=== PATIENT | male | born 1935 | race Caucasian/White ===

== ENCOUNTER → 2016-11-19 | Outpatient (REF) | payer MEDICARE ==
[~2016-11-19] MED LIST: ASPI1TAB PO; BISO10TA PO; BREO1INH IN; CHLO25TA PO; FINA5TAB2 PO; FLUO20CA9 PO; FURO1TAB15 PO; HUMA75VL SC; LISI10TA4 PO; OMEP20CA3 PO; SIMV80TA PO; SPIR25TA2 PO; TAMS0.4C2 PO; VICT18IN SC; ZYLO300T4 PO
[2016-11-19 11:54] LABS: MEAN CORPUSCULAR HEMOGLOBIN 29.8 pg (27.0-33.0); MEAN CORPUSCULAR HGB CONC 32.4 g/dl (32.0-36.5); MEAN CORPUSCULAR VOLUME 91.9 fl (80.0-96.0); RED CELL DISTRIBUTION WIDTH 14.3 % (11.5-14.5); WHITE BLOOD COUNT 7.4 K/mm3 (4.0-10.0)
[2016-11-19 12:22] LABS: ALBUMIN 3.7 GM/DL (3.2-5.2); ALBUMIN/GLOBULIN RATIO 1.28 (1.00-1.93); ALKALINE PHOSPHATASE 60 U/L (45-117); ALT/SGPT 18 U/L (12-78); ANION GAP 8 MEQ/L (8-16); AST/SGOT 11 U/L (15-37); BILIRUBIN,TOTAL 0.4 MG/DL (0.2-1.0); BLOOD UREA NITROGEN 19 MG/DL (7-18); CARBON DIOXIDE LEVEL 29 MEQ/L (21-32); CHLORIDE LEVEL 111 MEQ/L (98-107); CHOLESTEROL LEVEL 119 MG/DL (<200); CREATININE FOR GFR 1.09 MG/DL (0.70-1.30); GLOMERULAR FILTRATION RATE > 60.0 (>42); GLUCOSE, FASTING 61 MG/DL (83-110); POTASSIUM SERUM 3.9 MEQ/L (3.5-5.1); SODIUM LEVEL 148 MEQ/L (136-145); TOTAL PROTEIN 6.6 GM/DL (6.4-8.2); TRIGLYCERIDES LEVEL 78 MG/DL (<150)
== END ==
LOC: M SFHCPLAZ 07:44
PROVIDERS: ATTEND Internal Medicine
DX: G47.30 Sleep apnea, unspecified (principal); E11.9 Type 2 diabetes mellitus without complications; E78.00 Pure hypercholesterolemia, unspecified

== ENCOUNTER 2017-04-07 21:51 | Inpatient (IN) | payer MEDICARE ==
[~2017-04-07] VITALS: Ht 172.7 cm; Wt 110.8 kg
[2017-04-07] MEDS ORDERED: TORS10TA3 PO (22:20)
[2017-04-07] MEDS ORDERED: ACETAMINOPHEN 325 MG TAB PO ONE (23:15)
[2017-04-07] MEDS ORDERED: NS 1,000 ML IV SCH (23:29)
[2017-04-07 23:47] LABS: MEAN CORPUSCULAR HGB CONC 32.5 g/dl (32.0-36.5); MEAN CORPUSCULAR VOLUME 92.5 fl (80.0-96.0); PLATELET COUNT, AUTOMATED 132 k/mm3 (150-450); RED CELL DISTRIBUTION WIDTH 15.3 % (11.5-14.5); WHITE BLOOD COUNT 13.1 K/mm3 (4.0-10.0)
[2017-04-07] MEDS: IPRATROPIUM 0.5MG/ALBUTEROL 2.5MG INH SOL UD 3ML (DUONEB)(J7620) NEB PRN (23:47)
[2017-04-07 23:52] LABS: CALCIUM LEVEL 8.6 MG/DL (8.8-10.2); CREATININE FOR GFR 1.27 MG/DL (0.70-1.30); GLOMERULAR FILTRATION RATE 58.2 (>42)
[2017-04-08] LABS: ALBUMIN 3.7 GM/DL (3.2-5.2); ALBUMIN/GLOBULIN RATIO 1.28 (1.00-1.93); BILIRUBIN,DIRECT 0.2 MG/DL (0.0-0.2); BILIRUBIN,TOTAL 0.6 MG/DL (0.2-1.0); TOTAL PROTEIN 6.6 GM/DL (6.4-8.2)
[2017-04-08] MEDS: IPRATROPIUM 0.5MG/ALBUTEROL 2.5MG INH SOL UD 3ML (DUONEB)(J7620) NEB PRN (00:07)
[2017-04-08] MEDS ORDERED: cefTRIAXone SOD 2 GM in D5W MINI-BAG PLUS 50 ML IV ONE (00:15)
[2017-04-08] MEDS ORDERED: AZITHROMYCIN INJ 500 MG, VIAL MATE ADAPTER 1 EACH in D5W 250 ML IV ONE (00:15)
[2017-04-08] MEDS ORDERED: guaiFENesin ER 600 MG TAB PO ONE (00:17)
[2017-04-08 00:42] LABS: BANDS 2 % (< 11)
--- NOTE | 2017-04-08 00:47 | REP ---
Clinical: Dyspnea and cough. Technique: PA and lateral. Comparison: 06/24/2010. Findings: Bibasilar infiltrates (right greater than left) and suspected small pleural effusions suggest multifocal pneumonia. Mediastinum and cardiac silhouette stable. Evidence for prior sternotomy and CABG noted. No pneumothorax. Skeletal structures intact. Impression: Bibasilar infiltrates (right greater than left) and suspected layering effusions most suggestive of acute multifocal pneumonia / atelectasis. Signed by Shay Campa MD 04/08/2017 12:38 A
[2017-04-08] MEDS ORDERED: LISI-542 PO (01:15)
[2017-04-08] MEDS ORDERED: FLOM5CAP PO (01:15)
[2017-04-08] MEDS ORDERED: ASPI32ECTA PO (01:15)
[2017-04-08] MEDS ORDERED: GENTGEL OU (01:15)
[2017-04-08] MEDS ORDERED: FLUT1SPR2 (01:15)
[2017-04-08] MEDS ORDERED: ACETAMINOPHEN 325 MG TAB PO ONE (02:15)
[2017-04-08 02:30] VITALS: BP 109/57
[2017-04-08] MEDS: SIMVASTATIN 40 MG TAB PO SCH ×2 (03:50→19:55)
[2017-04-08] MEDS: ASPIRIN ENTERIC 325 MG TAB PO SCH ×2 (03:50→19:55)
[2017-04-08 06:00] VITALS: BP 135/67
--- NOTE | 2017-04-08 06:10 | HPEPDOC ---
General Date of Admission Apr 08, 2017 at 01:44 Primary Care Physician: Dennis Ramirez Attending Physician: MELISSA TIJERINA MD Chief Complaint The patient is a 81-year-old male admitted with a reason for visit of Pneumonia. Source: Patient Exam Limitations: No limitations Timing/Duration: Day(s) Severity: Moderate Associated Symptoms: Cough, Fever, Chills, Malaise History of Present Illness 81-year-old male, history of CAD status post CABG, diabetes mellitus, hypertensive, presented with shortness of breath, fever and cough for the past few days. He denies any recent travel or sick contact. He denies any leg edema, diarrhea or constipation. Home Medications Scheduled Allopurinol (Zyloprim) 300 Mg Tab, 300 MG PO DAILY, (Reported) Aspirin (Aspirin EC) 325 Mg Tabec, 325 MG PO QHS, (Reported) Bisoprolol Fumarate (Zebeta) 10 Mg Tab, 10 MG PO DAILY, (Reported) Fluticasone Propionate (Fluticasone Propionate 0.05%) 120 [place]/16 Gm Naspr, 2 SPRAY NA DAILY, (Reported) PER NOSTRIL Insulin Lispro Protamine/Lispr (Humalog Mix 75/25 (75-25) 100 Unit/ml) 1 Units/ 0.01 Ml Susp, 1 UNITS SC AC, (Reported) PATIENT STATES TAKES 70 UNITS BEFORE BREAKFAST, 30 UNITS BEFORE LUNCH AND 70 UNITS BEFORE DINNER DEPENDING ON GLUCOSE LEVEL Lisinopril (Lisinopril) 5 Mg Tab, 5 MG PO QHS, (Reported) Omeprazole (Omeprazole) 20 Mg Cap, 20 MG PO DAILY, (Reported) Simvastatin - High Dose (Simvastatin) 80 Mg Tab, 80 MG PO QHS, (Reported) Spironolactone (Spironolactone) 25 Mg Tab, 25 MG PO DAILY, (Reported) Tamsulosin Hydrochloride (Flomax) 0.4 Mg Cap, 0.8 MG PO DAILY, (Reported) Torsemide (Torsemide) 10 Mg Tab, 10 MG PO DAILY, (Reported) Scheduled PRN (Genteal 0.25-0.3 %) 1 Gel Gel, 1 GEL OU BID PRN for DRY EYES, (Reported) Allergies Coded Allergies: TAPE (Verified Allergy, Unknown, PLASTIC TAPE, 07/29/05) Past Medical History Medical History CAD status post CABG, hypertension, diabetes mellitus Surgical History Borderline replacement, CABG Family History Significant Family History: No pertinent family hx Social History * Smoker: Denies Alcohol: Denies Recent Travel/Sick Contacts: Denies: Recent travel, Recent sick contacts Psychosocial History: No pertinent psych hx Review of Symptoms Constitutional: Reports: Chills, Fever, Malaise, Denies: Night Sweats Eyes: Denies: Pain, Vision change ENT: Denies: Head Aches, Ear Pain, Dysphagia Skin: Denies: Rash, Lesions, Breakdown Pulmonary: Reports: Dyspnea, Cough Cardiovascular: Denies: Chest Pain, Palpitations, Orthopnea, Paroxysmal Noc. Dyspnea, Lt Headedness Gastrointestinal: Denies: Nausea, Vomiting, Abdominal Pain, Diarrhea Genitourinary: Denies: Dysuria, Frequency, Incontinence, Retention Hematologic: Denies: Bruising, Bleeding Excessively Musculoskeletal: Denies: Neck Pain, Back Pain, Joint Pain, Muscle Pain, Spasms Neurological: Denies: Weakness, Numbness, Change in speech, Confusion Psych: Reports: Mood Normal, Denies: Depression, Memory Issues Physical Examination General Exam: Positive: Alert, No Acute Distress Eye Exam: Positive: PERRLA, Conjunctiva & lids normal, EOMI, Negative: Sclera icteric ENT Exam: Positive: Atraumatic, Mucous membr. moist/pink, Pharynx Normal Neck Exam: Positive: Supple, Negative: JVD, thyromegaly Chest Exam: Positive: Rhonchi, Diminished Heart Exam: Positive: Rate Normal, Regular Rhythm, Normal S1, Normal S2, Negative: Murmurs, Rubs Telemetry: Positive: No significant arrhythmia Abdomen Exam: Positive: Normal bowel sounds, Soft, Negative: Tenderness, Hepatospenomegaly Extremity Exam: Positive: Normal pulses, Negative: Clubbing, Cyanosis, Edema Skin Exam: Positive: Nl turgor and temperature, Negative: Breakdown, Lesion Neuro Exam: Positive: Normal Gait, Normal Speech, Cranial Nerves 3-12 NL, Reflexes 2+ Psych Exam: Positive: Mental status NL, Mood NL, Oriented x 3 Vital Signs Vital Signs Date Time Temp Pulse Resp B/P (MAP) Pulse Ox O2 Delivery O2 Flow Rate FiO2 04/08/17 03:09 Nasal Cannula 4.0 04/08/17 02:30 99.7 81 14 109/57 (74) 94 Laboratory Data Labs 24H Laboratory Tests 2 04/07/17 22:04: Neutrophils 90H, Band Neutrophils 2, Lymphocytes (Manual) 6L, Monocytes (Manual ) 2, Platelet Estimate NORMAL, Red Blood Cell Morphology NORMAL, Anion Gap 4L, Glomerular Filtration Rate 58.2, Lactic Acid Level 1.3, Blood Urea Nitrogen 20H , Creatinine 1.27, Sodium Level 140, Potassium Level 4.0, Chloride Level 107, Carbon Dioxide Level 29, Calcium Level 8.6L, Total Creatine Kinase 251, Aspartate Amino Transf (AST/SGOT) 15, Alanine Aminotransferase (ALT/SGPT) 22, Alkaline Phosphatase 53, Total Bilirubin 0.6, Direct Bilirubin 0.2, Creatine Kinase MB 3.8H, Creatine Kinase MB Relative Index 1.51, Troponin I 0.32H, C- Reactive Protein, Quantitative 1.26H, B-Type Natriuretic Peptide 136H, Total Protein 6.6, Albumin 3.7, Albumin/Globulin Ratio 1.28, Thyroid Stimulating Hormone (TSH) 1.140 04/08/17 03:47: CBC/BMP Laboratory Tests 04/07/17 22:04 Red Blood Count 4.76, Mean Corpuscular Volume 92.5, Mean Corpuscular Hemoglobin 30.0, Mean Corpuscular Hemoglobin Concent 32.5, Red Cell Distribution Width 15.3 H, Calcium Level 8.6 L, Total Creatine Kinase 251 Microbiology Microbiology 04/08/17 Blood Culture, Received Pending 04/07/17 Blood Culture, Received Pending 04/08/17 Respiratory Virus Panel (PCR) ([facility]) - Final, Complete 04/07/17 Gram Stain, Received Pending 04/07/17 Sputum Culture, Received Pending Assessment/Plan 81-year-old male history of CAD status post CABG, presented with shortness of breath, likely due to pneumonia Problems (1) PNA (pneumonia) Status: Acute Problem Text: Continue his ceftriaxone and azithromycin. Robitussin-DM. Follow up a sputum culture, urine culture, Legionella, Streptococcus (2) CAD (coronary artery disease) Problem Text: Status post CABG continue with aspirin, Lipitor, beta vincent (3) Gout Problem Text: Continue with allopurinol Plan / VTE VTE Prophylaxis Ordered?: Yes Plan IVF: Initiate Diet: Continue Current Activity: Continue Current Diagnostics: Repeat Labs in AM Anticipated Discharge: Home BRIAN SEALS MD Apr 08, 2017 06:10
[2017-04-08] MEDS ORDERED: HumaLOG 75/25 MIX INSULIN PER UNIT SC SCH (07:30)
[2017-04-08] MEDS ORDERED: GLUCAGON FOR INJ 1 MG VIAL (J1610) SC PRN (08:00)
[2017-04-08] MEDS ORDERED: GLUCOSE 4 GM CHEW TABLET PO PRN (08:00)
[2017-04-08] MEDS ORDERED: DEXTROSE 50% 50 ML SYRINGE IV PRN (08:00)
[2017-04-08] MEDS: BISOPROLOL FUMARATE 10 MG TAB PO SCH (08:14)
[2017-04-08] MEDS: HumaLOG INSULIN (NovoLOG) PER UNIT SC SCH ×4 (08:14→21:00)
[2017-04-08] MEDS: FLUTICASONE PROP 0.05% NASAL SPRAY 16 GM (FLONASE) SCH (08:14)
[2017-04-08] MEDS: TORSEMIDE 10 MG TABLET PO SCH (08:14)
[2017-04-08] MEDS: ALLOPURINOL 300 MG TAB PO SCH (08:15)
[2017-04-08] MEDS: OMEPRAZOLE 20 MG CAP PO SCH (08:15)
[2017-04-08] MEDS: TAMSULOSIN 0.4 MG CAP PO SCH (08:15)
--- NOTE | 2017-04-08 11:58 | ECGEPIP ---
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
[2017-04-08 14:00] VITALS: BP 124/67
--- NOTE | 2017-04-08 14:51 | IPNPDOC ---
Subjective Date Seen The patient was seen on 04/08/17. Subjective Chief Complaint/HPI The patient is a 81-year-old male admitted with a reason for visit of Pneumonia. Events since last encounter Cough, having trouble producing sputum, no chest pain, feels about the same as last night, tolerating diet Constitutional: Denies: Chills, Fever Pulmonary: Reports: Dyspnea, Cough Cardiovascular: Denies: Chest Pain, Palpitations Gastrointestinal: Denies: Nausea, Vomiting, Abdominal Pain Objective Physical Examination General Exam: Positive: Alert, No Acute Distress Eye Exam: Negative: Sclera icteric ENT Exam: Positive: Mucous membr. moist/pink Chest Exam: Positive: Rhonchi, Diminished, Negative: Wheezing Heart Exam: Positive: Rate Normal, Regular Rhythm, Normal S1, Normal S2, Negative: Murmurs, Rubs Abdomen Exam: Positive: Normal bowel sounds, Soft, Negative: Tenderness, Hepatospenomegaly Extremity Exam: Positive: Normal pulses Skin Exam: Positive: Nl turgor and temperature Neuro Exam: Positive: Reflexes 2+ Assessment /Plan Problems (1) PNA (pneumonia) Status: Acute Problem Text: Continue his ceftriaxone and azithromycin. Robitussin-DM. Follow up a sputum culture, urine culture, Legionella, Streptococcus (2) CAD (coronary artery disease) Problem Text: Status post CABG continue with aspirin, Lipitor, beta vincent history of hypertension (3) Gout Problem Text: Continue with allopurinol (4) CKD (chronic kidney disease), stage III Status: Chronic (5) JAYDEN treated with BiPAP Status: Chronic Problem Specific Plan: Monitor Clinically (6) Hypercholesterolemia Status: Chronic Plan/VTE VTE Prophylaxis Ordered?: Yes Plan IVF: Initiate Diet: Continue Current Activity: Continue Current Diagnostics: Repeat Labs in AM Anticipated Discharge: Home VS, [facility]&O, [facility] Vital Signs/I&O Vital Signs Date Time Temp Pulse Resp B/P (MAP) Pulse Ox O2 Delivery O2 Flow Rate FiO2 04/08/17 08:14 86 135/67 04/08/17 06:00 99.2 16 92 Nasal Cannula 4.0 I&O- Last 24 Hours up to 6 AM 04/08/17 06:00 Intake Total 0 ml Output Total 200 ml Balance -200 ml Laboratory Data 24H LABS Laboratory Tests 2 04/07/17 22:04: Neutrophils 90H, Band Neutrophils 2, Lymphocytes (Manual) 6L, Monocytes (Manual ) 2, Platelet Estimate NORMAL, Red Blood Cell Morphology NORMAL, Anion Gap 4L, Glomerular Filtration Rate 58.2, Lactic Acid Level 1.3, Blood Urea Nitrogen 20H , Creatinine 1.27, Sodium Level 140, Potassium Level 4.0, Chloride Level 107, Carbon Dioxide Level 29, Calcium Level 8.6L, Total Creatine Kinase 251, Aspartate Amino Transf (AST/SGOT) 15, Alanine Aminotransferase (ALT/SGPT) 22, Alkaline Phosphatase 53, Total Bilirubin 0.6, Direct Bilirubin 0.2, Creatine Kinase MB 3.8H, Creatine Kinase MB Relative Index 1.51, Troponin I 0.32H, C- Reactive Protein, Quantitative 1.26H, B-Type Natriuretic Peptide 136H, Total Protein 6.6, Albumin 3.7, Albumin/Globulin Ratio 1.28, Thyroid Stimulating Hormone (TSH) 1.140 04/08/17 03:47: 04/08/17 08:08: Bedside Glucose (Misc Panel) 210H 04/08/17 11:53: Bedside Glucose (Misc Panel) 245H CBC/BMP Laboratory Tests 04/07/17 22:04 Red Blood Count 4.76, Mean Corpuscular Volume 92.5, Mean Corpuscular Hemoglobin 30.0, Mean Corpuscular Hemoglobin Concent 32.5, Red Cell Distribution Width 15.3 H, Calcium Level 8.6 L, Total Creatine Kinase 251 Microbiology Microbiology 04/08/17 Blood Culture, Received Pending 04/07/17 Blood Culture, Received Pending 04/08/17 Respiratory Virus Panel (PCR) ([facility]) - Final, Complete FLINT,MELISSA Rhoades MD Apr 08, 2017 14:51
[2017-04-08] MEDS ORDERED: ACETAMINOPHEN TAB 650MG DOSE (2X325MG) PO PRN (17:45)
[2017-04-08] MEDS: guaiFENesin ER 600 MG TAB PO SCH (19:55)
[2017-04-08 22:00] VITALS: BP 133/61
[2017-04-09] MEDS: AZITHROMYCIN INJ 500 MG, VIAL MATE ADAPTER 1 EACH in D5W 250 ML IV SCH ×2 (00:18→23:58)
[2017-04-09] MEDS: cefTRIAXone SOD 2 GM in D5W MINI-BAG PLUS 50 ML IV SCH (02:25)
[2017-04-09 06:00] VITALS: BP 133/61
[2017-04-09 06:59] LABS: MEAN CORPUSCULAR HEMOGLOBIN 30.8 pg (27.0-33.0); MEAN CORPUSCULAR HGB CONC 32.3 g/dl (32.0-36.5); MEAN CORPUSCULAR VOLUME 95.5 fl (80.0-96.0); RED CELL DISTRIBUTION WIDTH 15.6 % (11.5-14.5); WHITE BLOOD COUNT 13.4 K/mm3 (4.0-10.0)
[2017-04-09 07:06] LABS: ALBUMIN 2.7 GM/DL (3.2-5.2); ALBUMIN/GLOBULIN RATIO 0.75 (1.00-1.93); ALKALINE PHOSPHATASE 55 U/L (45-117); ALT/SGPT 16 U/L (12-78); ANION GAP 7 MEQ/L (8-16); AST/SGOT 15 U/L (15-37); BILIRUBIN,TOTAL 0.4 MG/DL (0.2-1.0); BLOOD UREA NITROGEN 25 MG/DL (7-18); CALCIUM LEVEL 8.1 MG/DL (8.8-10.2); CARBON DIOXIDE LEVEL 28 MEQ/L (21-32); CHLORIDE LEVEL 104 MEQ/L (98-107); CREATININE FOR GFR 1.21 MG/DL (0.70-1.30); GLOMERULAR FILTRATION RATE > 60.0 (>42); GLUCOSE, FASTING 291 MG/DL (83-110); POTASSIUM SERUM 4.2 MEQ/L (3.5-5.1); SODIUM LEVEL 139 MEQ/L (136-145); TOTAL PROTEIN 6.3 GM/DL (6.4-8.2)
[2017-04-09] MEDS: BISOPROLOL FUMARATE 10 MG TAB PO SCH (08:37)
[2017-04-09] MEDS: HumaLOG INSULIN (NovoLOG) PER UNIT SC SCH ×4 (08:37→21:12)
[2017-04-09] MEDS: guaiFENesin ER 600 MG TAB PO SCH ×2 (08:37→21:12)
[2017-04-09] MEDS: ALLOPURINOL 300 MG TAB PO SCH (08:37)
[2017-04-09] MEDS: TAMSULOSIN 0.4 MG CAP PO SCH (08:38)
[2017-04-09] MEDS: OMEPRAZOLE 20 MG CAP PO SCH (08:38)
[2017-04-09] MEDS: FLUTICASONE PROP 0.05% NASAL SPRAY 16 GM (FLONASE) SCH (08:38)
[2017-04-09] MEDS: TORSEMIDE 10 MG TABLET PO SCH (08:38)
--- NOTE | 2017-04-09 13:43 | IPNPDOC ---
Subjective Date Seen The patient was seen on 04/09/17. Subjective Chief Complaint/HPI The patient is a 81-year-old male admitted with a reason for visit of Pneumonia. Events since last encounter Feeling better, still has cough, no sputum today. significant sputum yesterday, feeling better, still weak and tired Constitutional: Denies: Chills, Fever Pulmonary: Reports: Cough, Denies: Dyspnea Cardiovascular: Denies: Chest Pain, Palpitations Gastrointestinal: Denies: Nausea, Vomiting, Abdominal Pain Objective Physical Examination General Exam: Positive: Alert, Cooperative, No Acute Distress Eye Exam: Negative: Sclera icteric ENT Exam: Positive: Mucous membr. moist/pink Chest Exam: Positive: Diminished, Negative: Rales, Rhonchi, Wheezing Heart Exam: Positive: Rate Normal, Regular Rhythm, Normal S1, Normal S2, Negative: Murmurs, Rubs Abdomen Exam: Positive: Normal bowel sounds, Soft, Negative: Tenderness, Hepatospenomegaly Extremity Exam: Positive: Normal pulses Skin Exam: Positive: Nl turgor and temperature Neuro Exam: Positive: Reflexes 2+ Assessment /Plan Problems (1) PNA (pneumonia) Status: Acute Problem Text: Continue his ceftriaxone and azithromycin. Robitussin-DM. Follow up a sputum culture, urine for Legionella, Streptococcus improved. likely dc 04/10/17 (2) CAD (coronary artery disease) Problem Text: Status post CABG continue with aspirin, Lipitor, beta vincent history of hypertension (3) Gout Problem Text: Continue with allopurinol (4) CKD (chronic kidney disease), stage III Status: Chronic (5) JAYDEN treated with BiPAP Status: Chronic Problem Specific Plan: Monitor Clinically (6) Hypercholesterolemia Status: Chronic Plan/VTE VTE Prophylaxis Ordered?: Yes Plan IVF: Initiate Diet: Continue Current Activity: Continue Current Diagnostics: Repeat Labs in AM Anticipated Discharge: Home VS, I&O, 24H, [place] Vital Signs/I&O Vital Signs Date Time Temp Pulse Resp B/P (MAP) Pulse Ox O2 Delivery O2 Flow Rate FiO2 04/09/17 08:37 86 133/61 04/09/17 08:00 Room Air 04/09/17 06:00 99.5 18 94 04/08/17 20:02 1.0 I&O- Last 24 Hours up to 6 AM 04/09/17 06:00 Intake Total 3105 ml Output Total 800 ml Balance 2305 ml Laboratory Data 24H LABS Laboratory Tests 2 04/08/17 16:48: Bedside Glucose (Misc Panel) 244H 04/08/17 20:40: Bedside Glucose (Misc Panel) 252H 04/09/17 06:16: Anion Gap 7L, Glomerular Filtration Rate > 60.0, Blood Urea Nitrogen 25H, Creatinine 1.21, Sodium Level 139, Potassium Level 4.2, Chloride Level 104, Carbon Dioxide Level 28, Calcium Level 8.1L, Aspartate Amino Transf (AST/SGOT) 15, Alanine Aminotransferase (ALT/SGPT) 16, Alkaline Phosphatase 55, Total Bilirubin 0.4, Total Protein 6.3L, Albumin 2.7#L, Albumin/Globulin Ratio 0.75L 04/09/17 12:01: Bedside Glucose (Misc Panel) 291H CBC/BMP Laboratory Tests 04/09/17 06:16 Red Blood Count 3.99 L, Mean Corpuscular Volume 95.5, Mean Corpuscular Hemoglobin 30.8, Mean Corpuscular Hemoglobin Concent 32.3, Red Cell Distribution Width 15.6 H, Calcium Level 8.1 L, Aspartate Amino Transf (AST/SGOT ) 15, Alanine Aminotransferase (ALT/SGPT) 16, Alkaline Phosphatase 55, Total Bilirubin 0.4, Total Protein 6.3 L, Albumin 2.7 #L Microbiology Microbiology 04/08/17 Blood Culture - Preliminary, Resulted No growth after 24 hours . All specim... 04/07/17 Blood Culture - Preliminary, Resulted No growth after 24 hours . All specim... 04/08/17 Gram Stain - Final, Resulted 04/08/17 Sputum Culture, Resulted Pending 04/08/17 Respiratory Virus Panel (PCR) ([facility]) - Final, Complete FLMELISSA HINES MD Apr 09, 2017 13:42
[2017-04-09 14:00] VITALS: BP 129/63
[2017-04-09] MEDS: ASPIRIN ENTERIC 325 MG TAB PO SCH (21:12)
[2017-04-09] MEDS: SIMVASTATIN 40 MG TAB PO SCH (21:12)
[2017-04-09 22:00] VITALS: BP 157/74
[2017-04-10] MEDS: cefTRIAXone SOD 2 GM in D5W MINI-BAG PLUS 50 ML IV SCH (01:23)
[2017-04-10 06:00] VITALS: BP 172/81
[2017-04-10 06:47] LABS: MEAN CORPUSCULAR HGB CONC 33.2 g/dl (32.0-36.5); MEAN CORPUSCULAR VOLUME 93.5 fl (80.0-96.0); RED CELL DISTRIBUTION WIDTH 15.4 % (11.5-14.5); WHITE BLOOD COUNT 10.6 K/mm3 (4.0-10.0)
[2017-04-10 07:17] LABS: ALBUMIN 2.8 GM/DL (3.2-5.2); ALKALINE PHOSPHATASE 49 U/L (45-117); ALT/SGPT 27 U/L (12-78); ANION GAP 9 MEQ/L (8-16); AST/SGOT 16 U/L (15-37); BILIRUBIN,TOTAL 0.4 MG/DL (0.2-1.0); BLOOD UREA NITROGEN 23 MG/DL (7-18); CALCIUM LEVEL 7.8 MG/DL (8.8-10.2); CARBON DIOXIDE LEVEL 26 MEQ/L (21-32); CHLORIDE LEVEL 106 MEQ/L (98-107); CREATININE FOR GFR 1.15 MG/DL (0.70-1.30); GLOMERULAR FILTRATION RATE > 60.0 (>42); GLUCOSE, FASTING 291 MG/DL (83-110); POTASSIUM SERUM 3.8 MEQ/L (3.5-5.1); SODIUM LEVEL 141 MEQ/L (136-145); TOTAL PROTEIN 5.6 GM/DL (6.4-8.2)
--- NOTE | 2017-04-10 08:31 | REP ---
Chest CT without IV contrast: Comparisons are the chest CT 09/28/2005 and PA and lateral plain film study of 04/07/2017. There are multifocal infiltrates bilaterally with a small ground-glass density in the right upper lobe, small ground-glass densities inferolaterally in the right upper lobe and posteriorly in the right upper lobe. There is a large infiltrate in the right middle lobe. There is a large infiltrate in the left lower lobe. There is a calcified granuloma peripherally in the right upper lobe. There are calcified mediastinal nodes. This is compatible with old healed granulomatous disease and is unchanged. There are no pleural effusions. The thoracic aorta is unremarkable. Cardiac size is normal. The visualized upper abdominal contents are unremarkable. Impression: Multifocal infiltrates. Signed by Nasir Zheng MD 04/10/2017 08:23 A
[2017-04-10] MEDS: HumaLOG INSULIN (NovoLOG) PER UNIT SC SCH ×4 (08:33→21:00)
[2017-04-10] MEDS: ALLOPURINOL 300 MG TAB PO SCH (08:33)
[2017-04-10] MEDS: TORSEMIDE 10 MG TABLET PO SCH (08:33)
[2017-04-10] MEDS: OMEPRAZOLE 20 MG CAP PO SCH (08:33)
[2017-04-10] MEDS: TAMSULOSIN 0.4 MG CAP PO SCH (08:33)
[2017-04-10] MEDS: FLUTICASONE PROP 0.05% NASAL SPRAY 16 GM (FLONASE) SCH (08:34)
[2017-04-10] MEDS: guaiFENesin ER 600 MG TAB PO SCH ×2 (08:34→21:29)
[2017-04-10] MEDS: BISOPROLOL FUMARATE 10 MG TAB PO SCH (08:34)
--- NOTE | 2017-04-10 09:47 | IPNPDOC ---
Subjective Date Seen The patient was seen on 04/10/17. Subjective Chief Complaint/HPI The patient is a 81-year-old male admitted with a reason for visit of Pneumonia. Events since last encounter Started having blood with sputum today at around 4 am, several times has produced blood with brown sputum, small amounts of blood, tolerating diet, feeling better than at admission, had hoped to go home today Constitutional: Denies: Chills, Fever Pulmonary: Reports: Cough, Denies: Dyspnea Cardiovascular: Denies: Chest Pain, Palpitations Gastrointestinal: Denies: Nausea, Vomiting, Abdominal Pain Objective Physical Examination General Exam: Positive: Alert, Cooperative, No Acute Distress ENT Exam: Positive: Mucous membr. moist/pink Chest Exam: Positive: Diminished, Negative: Rales, Rhonchi, Wheezing Heart Exam: Positive: Rate Normal, Regular Rhythm, Normal S1, Normal S2 Abdomen Exam: Positive: Normal bowel sounds, Soft, Negative: Tenderness, Hepatospenomegaly Extremity Exam: Positive: Normal pulses Skin Exam: Positive: Nl turgor and temperature Neuro Exam: Positive: Reflexes 2+ Psych Exam: Positive: Mental status NL, Mood NL, Negative: Anxiety Assessment /Plan Problems (1) PNA (pneumonia) Status: Acute Problem Text: Continue his ceftriaxone and azithromycin. Robitussin-DM. Follow up a sputum culture, urine for Legionella, Streptococcus today with hemoptysis- brown sputum with some blood Ct scan completed- shows bilateral pneumonia Hold ASA Monitor as inpatient (2) CAD (coronary artery disease) Problem Text: Status post CABG continue with Lipitor, beta vincent history of hypertension Holding ASA as of 04/10/17 due to hemoptysis (3) Gout Problem Text: Continue with allopurinol (4) CKD (chronic kidney disease), stage III Status: Chronic (5) JAYDEN treated with BiPAP Status: Chronic Problem Specific Plan: Monitor Clinically (6) Hypercholesterolemia Status: Chronic Plan/VTE VTE Prophylaxis Ordered?: Yes Plan IVF: Initiate Diet: Continue Current Activity: Continue Current Diagnostics: Repeat Labs in AM Anticipated Discharge: Home VS, I&O, 24H, Fishbone Vital Signs/I&O Vital Signs Date Time Temp Pulse Resp B/P (MAP) Pulse Ox O2 Delivery O2 Flow Rate FiO2 04/10/17 08:34 74 172/81 04/10/17 06:00 98.0 18 96 Room Air 04/08/17 20:02 1.0 I&O- Last 24 Hours up to 6 AM 04/10/17 06:00 Intake Total 480 ml Output Total 0 ml Balance 480 ml Laboratory Data 24H LABS Laboratory Tests 2 04/09/17 12:01: Bedside Glucose (Misc Panel) 291H 04/09/17 17:08: Bedside Glucose (Misc Panel) 303H 04/09/17 20:20: Bedside Glucose (Misc Panel) 284H 04/10/17 06:25: Anion Gap 9, Glomerular Filtration Rate > 60.0, Blood Urea Nitrogen 23H, Creatinine 1.15, Sodium Level 141, Potassium Level 3.8, Chloride Level 106, Carbon Dioxide Level 26, Calcium Level 7.8L, Aspartate Amino Transf (AST/SGOT) 16, Alanine Aminotransferase (ALT/SGPT) 27, Alkaline Phosphatase 49, Total Bilirubin 0.4, Total Protein 5.6L, Albumin 2.8L, Albumin/Globulin Ratio 1.00 CBC/BMP Laboratory Tests 04/10/17 06:25 Red Blood Count 3.68 L, Mean Corpuscular Volume 93.5, Mean Corpuscular Hemoglobin 31.0, Mean Corpuscular Hemoglobin Concent 33.2, Red Cell Distribution Width 15.4 H, Calcium Level 7.8 L, Aspartate Amino Transf (AST/SGOT ) 16, Alanine Aminotransferase (ALT/SGPT) 27, Alkaline Phosphatase 49, Total Bilirubin 0.4, Total Protein 5.6 L, Albumin 2.8 L Microbiology Microbiology 04/08/17 Blood Culture - Preliminary, Resulted No Growth after 48 hours. All Specime... 04/07/17 Blood Culture - Preliminary, Resulted No Growth after 48 hours. All Specime... 04/08/17 Gram Stain - Final, Resulted 04/08/17 Sputum Culture, Resulted Pending 04/08/17 Respiratory Virus Panel (PCR) ([facility]) - Final, Complete FLINT,MELISSA Rhoades MD Apr 10, 2017 09:46
[2017-04-10 14:00] VITALS: BP 154/74
[2017-04-10] MEDS: SIMVASTATIN 40 MG TAB PO SCH (21:29)
[2017-04-10 22:00] VITALS: BP 155/70
[2017-04-11] MEDS: cefTRIAXone SOD 2 GM in D5W MINI-BAG PLUS 50 ML IV SCH (00:35)
[2017-04-11] MEDS: AZITHROMYCIN INJ 500 MG, VIAL MATE ADAPTER 1 EACH in D5W 250 ML IV SCH (00:35)
[2017-04-11 06:00] VITALS: BP 144/70
[2017-04-11 06:37] LABS: MEAN CORPUSCULAR HEMOGLOBIN 30.6 pg (27.0-33.0); MEAN CORPUSCULAR HGB CONC 32.8 g/dl (32.0-36.5); MEAN CORPUSCULAR VOLUME 93.5 fl (80.0-96.0); RED CELL DISTRIBUTION WIDTH 15.2 % (11.5-14.5); WHITE BLOOD COUNT 8.3 K/mm3 (4.0-10.0)
[2017-04-11 06:57] LABS: ALBUMIN 2.6 GM/DL (3.2-5.2); ALBUMIN/GLOBULIN RATIO 0.62 (1.00-1.93); ALKALINE PHOSPHATASE 53 U/L (45-117); ALT/SGPT 32 U/L (12-78); ANION GAP 8 MEQ/L (8-16); AST/SGOT 22 U/L (15-37); BILIRUBIN,TOTAL 0.4 MG/DL (0.2-1.0); BLOOD UREA NITROGEN 25 MG/DL (7-18); CALCIUM LEVEL 8.7 MG/DL (8.8-10.2); CARBON DIOXIDE LEVEL 27 MEQ/L (21-32); CHLORIDE LEVEL 104 MEQ/L (98-107); CREATININE FOR GFR 1.14 MG/DL (0.70-1.30); GLOMERULAR FILTRATION RATE > 60.0 (>42); GLUCOSE, FASTING 297 MG/DL (83-110); POTASSIUM SERUM 3.8 MEQ/L (3.5-5.1); SODIUM LEVEL 139 MEQ/L (136-145); TOTAL PROTEIN 6.8 GM/DL (6.4-8.2)
[2017-04-11] MEDS ORDERED: CEFD1CAP8 PO (07:39)
[2017-04-11 08:00] VITALS: BP 144/70
[2017-04-11] MEDS: HumaLOG INSULIN (NovoLOG) PER UNIT SC SCH (08:00)
[2017-04-11] MEDS: TAMSULOSIN 0.4 MG CAP PO SCH (08:00)
[2017-04-11] MEDS: ALLOPURINOL 300 MG TAB PO SCH (08:00)
[2017-04-11] MEDS: OMEPRAZOLE 20 MG CAP PO SCH (08:00)
[2017-04-11] MEDS: BISOPROLOL FUMARATE 10 MG TAB PO SCH (08:00)
[2017-04-11] MEDS: FLUTICASONE PROP 0.05% NASAL SPRAY 16 GM (FLONASE) SCH (08:00)
[2017-04-11] MEDS: guaiFENesin ER 600 MG TAB PO SCH (08:00)
[2017-04-11] MEDS: TORSEMIDE 10 MG TABLET PO SCH (09:47)
--- NOTE | 2017-04-11 12:11 | DSES ---
DATE OF ADMISSION: 04/08/2017 DATE OF DISCHARGE: SPECIALISTS INVOLVED IN CARE: None. COMPLICATIONS DURING STAY: None. PROCEDURES PERFORMED DURING STAY: None. DISCHARGE DIAGNOSES: 1. Community acquired pneumonia. 2. Hemoptysis. 3. Coronary artery disease. 4. Status post coronary artery bypass graft (CABG). 5. History of hypertension. 6. Gout. 7. Chronic kidney disease stage III. 8. Obstructive sleep apnea, compliant with CPAP. 9. Hypercholesterolemia. SUMMARY OF HIS PRESENTATION: This is a 81-year-old gentleman, patient of Dr. Carias, who presented with cough, fever, chills, malaise, worsening over a few days, was admitted to the hospitalist service. Was treated for pneumonia with some improved and planned for discharge on 04/10/2017 when he had developed a few episodes of hemoptysis, which was mainly sputum with blood, not a large amount of blood. Did go on to have a CT scan of his chest, which showed multifocal infiltrates and a calcified granuloma peripherally in the right upper lobe with calcified mediastinal nodes. He improved markedly and felt better. On the day of discharge, there are no complaints of pain, chest pain, shortness of breath. Is still coughing, but feels much better than upon arrival. Temperature 98.2, pulse 83, respiratory rate 18, blood pressure 144/70, 94% on room air. Awake, alert, appropriately interactive. Able to ambulate without difficulty. Not on supplemental oxygen. Breathing is symmetrical with coarse upper airway sounds throughout. No wheezes. Heart is distant sounding, normal S1, S2. Abdomen is soft, doughy, nontender. White cell count 8.3, hemoglobin 12.5 and platelets 149. BUN 25, creatinine 1.14. DISCHARGE INSTRUCTIONS: Include following up with Dr. Dennis Ramirez within one week. Diet and activity as tolerated. MEDICATIONS: - Omnicef 300 mg by mouth twice a day for 7 more days - allopurinol 300 mg by mouth daily - Zebeta 10 mg by mouth daily - fluticasone nasal spray - Genteal each eye twice a day as needed for dry eyes Continue his home: - Lispro 75/25 mix as previously ordered - Lisinopril 5 mg by mouth daily at bedtime - omeprazole 20 mg by mouth daily - simvastatin 80 mg by mouth daily at bedtime - spironolactone 25 mg by mouth daily - Flomax 0.8 mg by mouth daily - torsemide 10 mg by mouth daily Due to his hemoptysis, we are holding his aspirin. He is given instructions to restart that on 04/16/2017.
[2017-04-12 00:07] LABS: ORGANISM ID Not indicated. (.); SPECIMEN SOURCE Urine (.)
== END 2017-04-11 11:55 | disposition home or self-care (01) | DRG 194 ==
LOC: EDBD 21:51 → M ED 23:36 → M ED INP 04-08 01:44 → M MS5PR 04-08 02:30
PROVIDERS: ADMIT Internal Medicine; ATTEND Internal Medicine
DX: J18.9 Pneumonia, unspecified organism (principal); R04.2 Hemoptysis; I25.10 Atherosclerotic heart disease of native coronary artery without angina pectoris; I12.9 Hypertensive chronic kidney disease with stage 1 through stage 4 chronic kidney disease, or unspecified chronic kidney disease; M10.9 Gout, unspecified; N18.3 Chronic kidney disease, stage 3 (moderate); E78.00 Pure hypercholesterolemia, unspecified; G47.33 Obstructive sleep apnea (adult) (pediatric); Z79.899 Other long term (current) drug therapy

== ENCOUNTER → 2017-04-19 | Outpatient (REF) | payer MEDICARE ==
[~2017-04-19] MED LIST changes: +ASPI32ECTA PO; +CEFD1CAP8 PO; +FLOM5CAP PO; +FLUT1SPR2; +GENTGEL OU; +LISI-542 PO; +TORS10TA3 PO
[2017-04-19 12:28] LABS: ALBUMIN 2.9 GM/DL (3.2-5.2); ALBUMIN/GLOBULIN RATIO 0.85 (1.00-1.93); ALKALINE PHOSPHATASE 58 U/L (45-117); ALT/SGPT 32 U/L (12-78); ANION GAP 7 MEQ/L (8-16); AST/SGOT 13 U/L (15-37); BILIRUBIN,TOTAL 0.3 MG/DL (0.2-1.0); BLOOD UREA NITROGEN 17 MG/DL (7-18); CALCIUM LEVEL 8.4 MG/DL (8.8-10.2); CARBON DIOXIDE LEVEL 28 MEQ/L (21-32); CHLORIDE LEVEL 107 MEQ/L (98-107); CREATININE FOR GFR 1.01 MG/DL (0.70-1.30); GLOMERULAR FILTRATION RATE > 60.0 (>42); GLUCOSE, FASTING 136 MG/DL (83-110); POTASSIUM SERUM 4.3 MEQ/L (3.5-5.1); SODIUM LEVEL 142 MEQ/L (136-145); TOTAL PROTEIN 6.3 GM/DL (6.4-8.2); URIC ACID 4.4 MG/DL (3.5-7.2)
== END ==
LOC: M LABDRAW1 11:26
PROVIDERS: ATTEND Internal Medicine
DX: M10.9 Gout, unspecified (principal); E11.29 Type 2 diabetes mellitus with other diabetic kidney complication

== ENCOUNTER → 2017-04-22 | Outpatient (CLI) | payer MEDICARE ==
--- NOTE | 2017-04-22 19:38 | REP ---
CHEST PA AND LATERAL: 04/22/2017: Comparison: 04/07/2017 chest x-ray, 04/10/2017 CT chest. Clinical history: Follow-up pneumonia. Findings: Two-view show sternotomy wires and clips in the mediastinum. The aorta is calcified and mildly tortuous. Airway is intact. There is much improvement in the right and left base infiltrates. No gross effusion. Some basilar atelectasis or fibrotic change may be present. There is minor lateral pleural thickening bilaterally. There is a calcified granuloma in the periphery of the right mid lung zone. Heart not enlarged. Calcified tortuous aorta and sternotomy wires and clips. All of this stable. Bones intact. IMPRESSION: 1. Improvement of the extensive infiltrates in the bilateral lower lung zones which were greater right than left. Some residual atelectatic or fibrotic change without dense consolidation / air bronchograms. No gross effusion. Follow-up chest x-ray. If the patient is clinically well, follow-up could be considered in 3 to 4 weeks for return to baseline. Signed by Andrea Davies MD 04/22/2017 08:53 P
== END ==
LOC: M ADAMS 14:54
PROVIDERS: ATTEND Internal Medicine
DX: J18.9 Pneumonia, unspecified organism (principal)

== ENCOUNTER → 2017-06-06 | Outpatient (CLI) | payer MEDICARE ==
[~2017-06-06] MED LIST changes: +ASPI325T24 PO; -ASPI32ECTA PO; +FLUO20CA19 PO; -FLUO20CA9 PO; -FURO1TAB15 PO; +FURO80TA2 PO
--- NOTE | 2017-06-06 16:33 | REP ---
Chest two views HISTORY: Pneumonia Comparison: 04/22/2017 Patchy densities are present in the lower lobes consistent with bibasilar infiltrates that are decreased compared to the previous study. A calcified granuloma is present in the right mid lung. The heart is normal in size. The pulmonary vasculature is normal in appearance. The bony structure is intact. IMPRESSION: Bibasilar infiltrates are present that are decreased compared to the previous study. Signed by Hardy Miranda MD 06/06/2017 04:25 P
== END ==
LOC: M ADAMS 15:52
PROVIDERS: ATTEND Internal Medicine
DX: J18.9 Pneumonia, unspecified organism (principal)

== ENCOUNTER → 2017-10-03 | Outpatient (REF) | payer MEDICARE ==
[2017-10-03 19:26] LABS: ALBUMIN 3.6 GM/DL (3.2-5.2); ALBUMIN/GLOBULIN RATIO 1.09 (1.00-1.93); ALKALINE PHOSPHATASE 59 U/L (45-117); ALT/SGPT 19 U/L (12-78); ANION GAP 6 MEQ/L (8-16); AST/SGOT 15 U/L (7-37); BILIRUBIN,TOTAL 0.3 MG/DL (0.2-1.0); BLOOD UREA NITROGEN 20 MG/DL (7-18); CALCIUM LEVEL 8.6 MG/DL (8.8-10.2); CARBON DIOXIDE LEVEL 30 MEQ/L (21-32); CHLORIDE LEVEL 108 MEQ/L (98-107); CREATININE FOR GFR 1.06 MG/DL (0.70-1.30); GLOMERULAR FILTRATION RATE > 60.0 (>42); GLUCOSE, FASTING 246 MG/DL (83-110); SODIUM LEVEL 144 MEQ/L (136-145); TOTAL PROTEIN 6.9 GM/DL (6.4-8.2)
[2017-10-03 20:02] LABS: MEAN CORPUSCULAR HEMOGLOBIN 29.5 pg (27.0-33.0); MEAN CORPUSCULAR HGB CONC 31.7 g/dl (32.0-36.5); MEAN CORPUSCULAR VOLUME 93.1 fl (80.0-96.0); PLATELET COUNT, AUTOMATED 132 10^3/uL (150-450); RED CELL DISTRIBUTION WIDTH 14.7 % (11.5-14.5)
== END ==
LOC: M SFHCPLAZ 14:50
PROVIDERS: ATTEND Internal Medicine
DX: G47.30 Sleep apnea, unspecified (principal); E11.29 Type 2 diabetes mellitus with other diabetic kidney complication

== ENCOUNTER → 2018-01-16 | Outpatient (CLI) | payer MEDICARE | LOC: M ADAMS 15:33 | DX: M79.621 Pain in right upper arm (principal) | CPT/HCPCS: 73060 ==

== ENCOUNTER 2018-11-10 09:26 | Day surgery (SDC) | payer MEDICARE ==
[2018-11-10] VITALS (17 sets, daily range): BP systolic 129–168; BP diastolic 74–93; O2SAT 91–98
[~2018-11-10] VITALS: Ht 172.7 cm; Wt 102.3 kg
[~2018-11-10 09:26] MED LIST changes: -ASPI325T24 PO; +ASPI325T25 PO; +FLOM0.4C39 PO; -FLOM5CAP PO; +LIDOCAINE 2% INJ 100 MG/5 ML SDV (FOR ANES.) As Ordered ONE; +MIDAZOLAM INJ 2 MG/2 ML VIAL (J2250) As Ordered ONE; +ONDANSETRON 4MG/2ML VIAL (J2405) As Ordered ONE; +PROPOFOL 500 MG/50 ML VIAL As Ordered ONE; -SIMV80TA PO; +SIMV80TA13 PO; +SPIR-10 PO; -SPIR25TA2 PO; +TRAZ-160 PO; -ZYLO300T4 PO; +ZYLO300T6 PO; +dexameTHASONE 4 MG/ML 1ML VIAL (J1100) As Ordered ONE; +fentaNYL 100 MCG/2 ML INJECTION (J3010) As Ordered ONE
[2018-11-10] MEDS ORDERED: VANCOMYCIN 1000 MG/20 ML VIAL (J3370) As Ordered ONE (09:54)
[2018-11-10] MEDS ORDERED: MUPIROCIN 2% OINT 22 GM TUBE As Ordered ONE (09:54)
[2018-11-10] MEDS ORDERED: LIDOCAINE 1% SDV INJ 30 ML VIAL As Ordered ONE (09:54)
[2018-11-10] MEDS ORDERED: ISOVUE-300 61% 50ML VIAL (Q9967) As Ordered ONE (09:54)
[2018-11-10] MEDS ORDERED: ceFAZolin SOD 1 GM in D5W MINI-BAG PLUS 50 ML IV ONE (10:00)
[2018-11-10] MEDS ORDERED: LR 1,000 ML IV ONE (10:00)
[2018-11-10 10:23] LABS: INR 0.97
[2018-11-10] MEDS ORDERED: PROPOFOL 200 MG/20 ML VIAL As Ordered ONE (13:30)
--- NOTE | 2018-11-10 14:16 | REP ---
PARTIAL CHEST X-RAY: Four views. HISTORY: Complete heart block. 5 minutes 58 seconds of fluoroscopy time is reported. FINDINGS: A sequence of four last image hold fluoroscopically obtained spot radiographs document pacemaker lead position. Electronically Signed by Edgar Heaton MD 11/10/2018 03:17 P
--- NOTE | 2018-11-10 14:24 | REP ---
Chest one-view HISTORY: Pacemaker insertion Comparison: 11/10/2018 The left costophrenic angle is not seen. The lungs are clear. The heart is normal in size. The pulmonary vasculature is normal in appearance. A cardiac pacemaker is present. Impression: No acute disease. Electronically Signed by Hardy Miranda MD 11/10/2018 02:16 P
[2018-11-10] MEDS ORDERED: ACETAMINOPHEN TAB 650MG DOSE (2X325MG) PO PRN (14:45)
[2018-11-10] MEDS ORDERED: SLF 3 ML SYR IV PRN (16:30)
[2018-11-10] MEDS ORDERED: HumuLIN R (REGULAR) INSULIN (NovoLIN R) **100U/ML** PER UNIT SC SCH ×2 (17:30→21:00)
[2018-11-10] MEDS ORDERED: HumaLOG INSULIN (NovoLOG) PER UNIT SC SCH ×2 (17:30→21:00)
[2018-11-10] MEDS ORDERED: HumaLOG 75/25 MIX INSULIN PER UNIT SC SCH (17:30)
[2018-11-10] MEDS ORDERED: DEXTROSE 50% 50 ML SYRINGE IV PRN (18:00)
[2018-11-10] MEDS ORDERED: GLUCAGON FOR INJ 1 MG VIAL (J1610) SC PRN (18:00)
[2018-11-10] MEDS ORDERED: GLUCOSE 4 GM CHEW TABLET PO PRN (18:00)
[2018-11-10] MEDS: HumaLOG INSULIN (NovoLOG) PER UNIT SC SCH (18:47)
--- NOTE | 2018-11-10 18:57 | RO ---
DATE OF PROCEDURE: 11/10/2018 PREPROCEDURE DIAGNOSIS: Complete heart block. POSTPROCEDURE DIAGNOSIS: Complete heart block. FINDINGS: Complete heart block. PROCEDURE: Implantation of a permanent dual-chamber pacemaker. SURGEON: Curt Bach MD INSIDE B2B SALES: None. ANESTHESIA: Lidocaine 1% local/monitored anesthetic care. No specimens. Estimated blood loss: Less than 10 mL. No blood products replaced. No drains. No complications. DESCRIPTION OF PROCEDURE: The patient was prepped and draped over the left pectoral region. 3M Ioban film was applied. Lidocaine 1% was used for local anesthetic. A left subclavian venogram was performed by injecting a mixture of three-quarters Isovue contrast with one-quarter injectable normal saline and a volume of 20 mL was injected through a left peripheral IV. This was used to provide a left subclavian venogram in real time, which was used to get into the left subclavian vein extrahepatic portion using a micropuncture needle. This was guide-exchanged for a guidewire that came with one of the 7-[place] sheaths. Next, an incision approximately 3 inches in length was made 1 cm below the skin entry site of the guidewire using a PEAK PlasmaBlade. The PEAK PlasmaBlade was used to dissect through the fatty layer and the fibrous Davide's fascia. The pacemaker pocket was then formed in a caudal direction using blunt dissection using two fingers to separate the prepectoral fascia from the Davide's fascia. Next, the guidewire was pulled through the skin into the incision site. Next, I took another micropuncture needle, which was placed at the level of the pectoral muscle and more lateral to the first guidewire, and I used the first guidewire as a fluoroscopic marker to obtain a separate venous access into the extrathoracic portion of the left subclavian vein. This was then guidewire exchanged for a guidewire that came with the other 7-[place] Citizen sheath. Next, a 7-[place] Citizen sheath with introducer was placed over the more lateral of the guidewires and was used for vein access for the right ventricle lead. The right ventricle lead was placed under fluoroscopic guidance into the right ventricle where it was secured with a total of 8 turns. This position was found to be electrically and anatomically satisfactory and no diaphragm stimulation could be palpated at 10 volts high output pacing on either side of the diaphragm. The sheath was removed, and the ventricle lead was secured to the pectoral muscle with the supplied tie-down sleeve using two individual sutures consisting of #0 Ethibond to stitch to the pectoral muscle. Next, another 7-[place] sheath was placed over the more medial of the guidewires and was used for vein access for the atrial lead. The atrial lead was placed under fluoroscopic guidance into the remnant of the right atrial appendage position and was secured with a total of 10 turns. This position was found to be electrically and anatomically satisfactory. No diaphragm stimulation could be palpated on either side at 10 volts high output pacing. The 7-[place] Citizen sheath was removed, and the atrial lead was secured to the pectoral muscle with the supplied tie-down sleeve using two individual sutures consisting of #0 Ethibond to secure it to the pectoral muscle. Next, another #0 Ethibond suture was placed to the pectoral muscle to serve as a tie-down for the pacemaker pulse generator I then took a M[employer] antimicrobial envelope, medium size, and cut into four pieces, which were placed into the pocket. Next, the terminal pins of the atrial and ventricular leads were placed into their respective ports in the header of the pacemaker pulse generator and secured with the hex screwdriver. The excess lead material was then placed underneath the pacemaker pulse generator and placed along with the pacemaker pulse generator into the pocket. The pulse generator was then secured to the pectoral muscle with the previously placed #0 Ethibond suture. The deep layer was closed using individual sutures consisting of #2-0 Vicryl. Some additional Vicryl sutures were used to help approximate the more superficial layer. The skin was then closed using ceci. The patient tolerated the procedure well without any immediate complications. The pacemaker pulse generator implanted was a eXenSa [place] XT DR MRI with model #W1DR01 with serial #[id number]. The atrial lead implanted was a Medtronic, model 616153 with serial #[id number]. Final numbers through the PSA analyzer from the right atrial lead in bipolar configuration showed a capture threshold of 1.0 volts at 0.5 milliseconds with lead impedance of 473 ohms and P wave amplitude of 2.4 millivolts with slew rate of 1.4 volts per second. The Ventricular lead was a Medtronic, model 931816 with serial #[id number]. Final testing in the operating room with the PSA analyzer for the right ventricle lead in bipolar configuration showed capture threshold of 0.3 volts at 0.5 milliseconds with lead impedance of 562 ohms and R wave amplitude of 5.1 millivolts. A slew rate of 3.0 volts per second. [facility]
[2018-11-10] MEDS ORDERED: traZODone 50 MG TAB PO SCH (21:00)
[2018-11-10] MEDS ORDERED: SIMVASTATIN 40 MG TAB PO SCH (21:00)
[2018-11-10] MEDS ORDERED: LISINOPRIL 5 MG TAB PO SCH (21:00)
[2018-11-10] MEDS: ASCORBIC ACID 250 MG TAB PO SCH (21:03)
[2018-11-10] MEDS: SLF 3 ML SYR IV SCH (21:04)
[2018-11-10] MEDS ORDERED: PILL CRUSHER/CUTTER 1 EACH XX PRN (21:15)
--- NOTE | 2018-11-10 22:07 | ECGEPIP ---
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
[2018-11-11] VITALS (10 sets, daily range): BP systolic 129–140; BP diastolic 62–76; O2SAT 92–97
[2018-11-11] MEDS: SLF 3 ML SYR IV SCH (04:01)
[2018-11-11] MEDS ORDERED: HumaLOG 75/25 MIX INSULIN PER UNIT SC SCH (07:30)
[2018-11-11] MEDS: ASCORBIC ACID 250 MG TAB PO SCH (07:50)
[2018-11-11] MEDS: HumaLOG INSULIN (NovoLOG) PER UNIT SC SCH (07:51)
[2018-11-11] MEDS ORDERED: FINASTERIDE 5 MG TAB PO SCH (09:00)
[2018-11-11] MEDS ORDERED: ASPIRIN 81 MG ENTERIC TAB PO SCH (09:00)
[2018-11-11] MEDS ORDERED: TORSEMIDE 20 MG TAB PO SCH (09:00)
[2018-11-11] MEDS ORDERED: TAMSULOSIN 0.4 MG CAP PO SCH (09:00)
[2018-11-11] MEDS ORDERED: OMEPRAZOLE 20 MG CAP PO SCH (09:00)
[2018-11-11] MEDS ORDERED: SPIRONOLACTONE 25 MG TAB PO SCH (09:00)
[2018-11-11] MEDS ORDERED: ALLOPURINOL 300 MG TAB PO SCH (09:00)
--- NOTE | 2018-11-11 09:11 | REP ---
Chest x-ray: Two views. History: Post pacemaker. Comparison chest x-ray: November 10, 2018. Findings: A bipolar pacemaker is seen in the right heart via the left side. The patient status post prior median sternotomy. There is soft tissue surgical clips in the neck on the right. Granulomatous calcification is seen in the right lung. Lung patel are otherwise clear. There is no evidence of pneumothorax or hydrothorax. Heart size is normal. Impression: No acute disease. Bipolar pacemaker in place. Electronically Signed by Edgar Heaton MD 11/11/2018 09:03 A
[2018-11-11] MEDS ORDERED: ASCO25TA PO (10:59)
[2018-11-11] MEDS ORDERED: Acetaminophen Tab PO (10:59)
== END 2018-11-11 12:28 | disposition home or self-care (01) ==
LOC: M SDC 09:26 → M PCU 15:30 → M SDC 11-11 12:28
PROVIDERS: ATTEND Internal Medicine Cardiovascular Disease
DX: I44.2 Atrioventricular block, complete (principal); I25.10 Atherosclerotic heart disease of native coronary artery without angina pectoris; I10 Essential (primary) hypertension; E78.5 Hyperlipidemia, unspecified; E11.9 Type 2 diabetes mellitus without complications; Z79.82 Long term (current) use of aspirin; Z79.4 Long term (current) use of insulin; Z86.73 Personal history of transient ischemic attack (TIA), and cerebral infarction without residual deficits; Z87.891 Personal history of nicotine dependence; Z79.899 Other long term (current) drug therapy
CPT/HCPCS: 33208; 36415; 71045; 71046; 76000; 85610; 93005; C1785; C1898; J0690; J1100; J2250; J2405; J3010; J3370; Q9967

== ENCOUNTER → 2019-01-03 | Outpatient (REF) | payer MEDICARE ==
[~2019-01-03] MED LIST changes: +ASCO25TA PO; +Acetaminophen Tab PO; -LIDOCAINE 2% INJ 100 MG/5 ML SDV (FOR ANES.) As Ordered ONE; -MIDAZOLAM INJ 2 MG/2 ML VIAL (J2250) As Ordered ONE; -ONDANSETRON 4MG/2ML VIAL (J2405) As Ordered ONE; -PROPOFOL 500 MG/50 ML VIAL As Ordered ONE; -dexameTHASONE 4 MG/ML 1ML VIAL (J1100) As Ordered ONE; -fentaNYL 100 MCG/2 ML INJECTION (J3010) As Ordered ONE
[2019-01-03 10:49] LABS: HEMOGLOBIN A1c 8.2 %
[2019-01-03 10:51] LABS: ALBUMIN 3.7 GM/DL (3.2-5.2); ALT/SGPT 20 U/L (12-78); BILIRUBIN,TOTAL 0.5 MG/DL (0.2-1.0); BLOOD UREA NITROGEN 18 MG/DL (7-18); CALCIUM LEVEL 9.1 MG/DL (8.8-10.2); CARBON DIOXIDE LEVEL 29 MEQ/L (21-32); CHLORIDE LEVEL 106 MEQ/L (98-107); CHOLESTEROL LEVEL 118 MG/DL (<200); CHOLESTEROL RISK RATIO 3.105 (<5); CREATININE FOR GFR 1.05 MG/DL (0.70-1.30); GLOMERULAR FILTRATION RATE > 60.0 (>35); GLUCOSE, FASTING 164 MG/DL (70-100); HDL CHOLESTEROL 38 MG/DL (>40); LDL CHOLESTEROL 64 MG/DL (<100); NON-HDL-C 80 MG/DL; POTASSIUM SERUM 4.1 MEQ/L (3.5-5.1); SODIUM LEVEL 143 MEQ/L (136-145); TOTAL PROTEIN 6.7 GM/DL (6.4-8.2); TRIGLYCERIDES LEVEL 78 MG/DL (<150)
[2019-01-03 10:58] LABS: PTH INTACT 67.9 PG/ML (18.5-88.0)
== END ==
LOC: M SFHCPLAZ 07:58
PROVIDERS: ATTEND Internal Medicine
DX: N18.3 Chronic kidney disease, stage 3 (moderate) (principal); E11.29 Type 2 diabetes mellitus with other diabetic kidney complication; E78.00 Pure hypercholesterolemia, unspecified

== ENCOUNTER → 2019-07-27 | Outpatient (REF) | payer MEDICARE ==
[~2019-07-27] MED LIST changes: -ASCO25TA PO; +ASPI-255 PO; -ASPI1TAB PO; -ASPI325T25 PO; +ASPI81TA26 PO; -BISO10TA PO; +BISO10TA13 PO; +CHLO125TA PO; -CHLO25TA PO; -OMEP20CA3 PO; +OMEP20CA4 PO; -TRAZ-160 PO; +TRAZ-252 PO; +VITA1TAB23 PO
[2019-07-27 10:42] LABS: HEMOGLOBIN 12.7 g/dl (13.5-17.5); MEAN CORPUSCULAR HEMOGLOBIN 28.8 pg (27.0-33.0); PLATELET COUNT, AUTOMATED 223 10^3/uL (150-450); RED BLOOD COUNT 4.41 10^6/uL (4.30-6.10); WHITE BLOOD COUNT 9.9 10^3/uL (4.0-10.0)
[2019-07-27 11:36] LABS: HEMOGLOBIN A1c 7.7 %
[2019-07-27 11:50] LABS: ALBUMIN 3.6 GM/DL (3.2-5.2); BILIRUBIN,TOTAL 0.7 MG/DL (0.2-1.0); CALCIUM LEVEL 8.8 MG/DL (8.8-10.2); CREATININE FOR GFR 1.26 MG/DL (0.70-1.30); GLOMERULAR FILTRATION RATE 58.5 (>35); MAGNESIUM LEVEL 1.9 MG/DL (1.8-2.4); POTASSIUM SERUM 4.4 MEQ/L (3.5-5.1); TOTAL PROTEIN 6.8 GM/DL (6.4-8.2)
[2019-07-27 12:07] LABS: CREATININE, URINE 30.9 MG/DL; MALB URINE SIEMENS 5.6 MG/L; MAU/CREAT RATIO 18.1 MCG/MG (0.0-30.0)
== END ==
LOC: M SFHCPLAZ 08:03
PROVIDERS: ATTEND Internal Medicine
DX: I11.0 Hypertensive heart disease with heart failure (principal); E11.29 Type 2 diabetes mellitus with other diabetic kidney complication; N18.3 Chronic kidney disease, stage 3 (moderate); G47.30 Sleep apnea, unspecified

== ENCOUNTER → 2019-12-21 | Outpatient (REF) | payer MEDICARE ==
[~2019-12-21] MED LIST changes: -FLUO20CA19 PO; +FLUO20CA22 PO; +OMEP1CAP73 PO; -OMEP20CA4 PO
[2019-12-21 19:36] LABS: BLOOD UREA NITROGEN 22 MG/DL (7-18); CALCIUM LEVEL 8.6 MG/DL (8.8-10.2); CARBON DIOXIDE LEVEL 30 MEQ/L (21-32); CHLORIDE LEVEL 109 MEQ/L (98-107); CREATININE FOR GFR 0.98 MG/DL (0.70-1.30); GLOMERULAR FILTRATION RATE > 60.0 (>35); GLUCOSE, FASTING 175 MG/DL (70-100); MAGNESIUM LEVEL 2.2 MG/DL (1.8-2.4); POTASSIUM SERUM 3.9 MEQ/L (3.5-5.1); SODIUM LEVEL 143 MEQ/L (136-145)
== END ==
LOC: M LABDRWAD 19:20 → M LAB REF 19:20
PROVIDERS: ATTEND Physician Assistant
DX: I49.3 Ventricular premature depolarization (principal)

== ENCOUNTER 2020-02-28 14:16 | Emergency (ER) | payer MEDICARE ==
[~2020-02-28] VITALS: Ht 172.7 cm; Wt 99.3 kg
[2020-02-28 15:28] LABS: BASO % 0.5 % (0.0-1.0); EOS # 0.1 10^3/uL (0.0-0.5); EOS % 1.6 % (0.0-3.0); HEMATOCRIT 40.2 % (42.0-52.0); HEMOGLOBIN 12.5 g/dl (13.5-17.5); LYMPH # 1.4 10^3/uL (1.5-5.0); LYMPH % 15.9 % (24.0-44.0); MEAN CORPUSCULAR HEMOGLOBIN 28.3 pg (27.0-33.0); MEAN CORPUSCULAR HGB CONC 31.1 g/dl (32.0-36.5); MEAN CORPUSCULAR VOLUME 91.2 fl (80.0-96.0); MONO # 0.7 10^3/uL (0.0-0.8); MONO % 8.3 % (0.0-5.0); NEUTROPHILS # 6.2 10^3/uL (1.5-8.5); NEUTROPHILS % 73.2 % (36.0-66.0); PLATELET COUNT, AUTOMATED 158 10^3/uL (150-450); RED BLOOD COUNT 4.41 10^6/uL (4.30-6.10); WHITE BLOOD COUNT 8.5 10^3/uL (4.0-10.0)
[2020-02-28 15:52] LABS: CPK CREATINE PHOSPHOKINASE 181 U/L (39-308); MB/CK RELATIVE INDEX 2.21 (< OR =4); TROPONIN I < 0.02 NG/ML (< 0.10)
--- NOTE | 2020-02-28 15:58 | REP ---
CHEST, SINGLE VIEW: Single view of the chest is performed. COMPARISON: 11/11/2018 There is mild aeration of the left hemidiaphragm. There is no acute infiltrate. Calcified granuloma is seen laterally in the right mid lung zone. There is some minor interstitial fibrotic change in the lung bases. No cardiomegaly is seen. There is calcification of the thoracic aorta. Mediastinal silhouette is unchanged. Multiple sternal wires and mediastinal clips are present. There is a left pacemaker again noted. IMPRESSION: Stable chronic findings without evidence of acute infiltrate. Electronically Signed by Nasir Wong MD 02/28/2020 07:04 P
--- NOTE | 2020-02-28 16:24 | REP ---
LEFT SHOULDER THREE VIEWS: Three views of the left shoulder performed. No acute fracture or dislocation is seen. There is mild joint space narrowing and spurring at the acromioclavicular and glenohumeral joints. Pacemaker device is noted. IMPRESSION: Mild degenerative changes with no fracture or dislocation. Electronically Signed by Nasir Wong MD 02/28/2020 07:05 P
[2020-02-28 17:11] VITALS: BP 151/77
--- NOTE | 2020-02-29 01:58 | ECGEPIP ---
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
== END 2020-02-28 17:13 | disposition home or self-care (01) ==
LOC: M ED 14:16
DX: R07.89 Other chest pain (principal); M25.512 Pain in left shoulder; M19.012 Primary osteoarthritis, left shoulder; I45.10 Unspecified right bundle-branch block; R06.02 Shortness of breath; I11.9 Hypertensive heart disease without heart failure; Z95.1 Presence of aortocoronary bypass graft; Z91.048 Other nonmedicinal substance allergy status; Z79.899 Other long term (current) drug therapy; Z79.4 Long term (current) use of insulin; Z79.82 Long term (current) use of aspirin

== ENCOUNTER → 2020-10-22 | Outpatient (REF) | payer MEDICARE ==
[~2020-10-22] MED LIST changes: +ASCO250T20 PO; -VITA1TAB23 PO
[2020-10-22 13:49] LABS: HEMATOCRIT 41.7 % (42.0-52.0); HEMOGLOBIN 13.1 g/dl (13.5-17.5); MEAN CORPUSCULAR HEMOGLOBIN 29.9 pg (27.0-33.0); MEAN CORPUSCULAR HGB CONC 31.4 g/dl (32.0-36.5); MEAN CORPUSCULAR VOLUME 95.2 fl (80.0-96.0); PLATELET COUNT, AUTOMATED 148 10^3/uL (150-450); RED BLOOD COUNT 4.38 10^6/uL (4.30-6.10); WHITE BLOOD COUNT 8.2 10^3/uL (4.0-10.0)
[2020-10-22 14:25] LABS: HEMOGLOBIN A1c 7.8 %
[2020-10-22 14:27] LABS: ALBUMIN 3.7 GM/DL (3.2-5.2); BILIRUBIN,TOTAL 0.4 MG/DL (0.2-1.0); CALCIUM LEVEL 8.9 MG/DL (8.8-10.2); CHOLESTEROL RISK RATIO 2.446 (<5); CREATININE FOR GFR 1.33 MG/DL (0.70-1.30); GLOMERULAR FILTRATION RATE 54.8 (>35); MAGNESIUM LEVEL 2.1 MG/DL (1.8-2.4); POTASSIUM SERUM 4.7 MEQ/L (3.5-5.1); THYROID STIMULATING HORMONE 1.65 uIU/ML (0.358-3.740); TOTAL PROTEIN 6.7 GM/DL (6.4-8.2)
[2020-10-22 14:29] LABS: CREATININE, URINE 90.7 MG/DL; MALB URINE SIEMENS 19.1 MG/L
[2020-10-23 09:23] LABS: PTH INTACT 71.5 PG/ML (18.5-88.0)
== END ==
LOC: M SFHCPLAZ 09:34
PROVIDERS: ATTEND Internal Medicine
DX: E78.00 Pure hypercholesterolemia, unspecified (principal); I11.0 Hypertensive heart disease with heart failure; E11.29 Type 2 diabetes mellitus with other diabetic kidney complication; N18.30 Chronic kidney disease, stage 3 unspecified; G47.30 Sleep apnea, unspecified; Z95.0 Presence of cardiac pacemaker

== ENCOUNTER → 2020-12-01 | Outpatient (REF) | payer MEDICARE ==
[2020-12-01 12:23] LABS: BASO % 0.4 % (0.0-1.0); EOS # 0.1 10^3/uL (0.0-0.5); EOS % 1.5 % (0.0-3.0); HEMATOCRIT 39.8 % (42.0-52.0); HEMOGLOBIN 12.6 g/dl (13.5-17.5); LYMPH # 1.2 10^3/uL (1.5-5.0); LYMPH % 17.1 % (24.0-44.0); MEAN CORPUSCULAR HEMOGLOBIN 30.2 pg (27.0-33.0); MEAN CORPUSCULAR HGB CONC 31.7 g/dl (32.0-36.5); MEAN CORPUSCULAR VOLUME 95.4 fl (80.0-96.0); MONO # 0.6 10^3/uL (0.0-0.8); MONO % 8.6 % (0.0-5.0); NEUTROPHILS # 5.2 10^3/uL (1.5-8.5); NEUTROPHILS % 72.1 % (36.0-66.0); PLATELET COUNT, AUTOMATED 159 10^3/uL (150-450); RED BLOOD COUNT 4.17 10^6/uL (4.30-6.10); WHITE BLOOD COUNT 7.2 10^3/uL (4.0-10.0)
[2020-12-01 12:58] LABS: ALBUMIN 3.6 GM/DL (3.2-5.2); ALT/SGPT 18 U/L (12-78); BILIRUBIN,TOTAL 0.3 MG/DL (0.2-1.0); BLOOD UREA NITROGEN 21 MG/DL (7-18); CALCIUM LEVEL 9.2 MG/DL (8.8-10.2); CARBON DIOXIDE LEVEL 28 MEQ/L (21-32); CHLORIDE LEVEL 107 MEQ/L (98-107); CREATININE FOR GFR 1.14 MG/DL (0.70-1.30); GLOMERULAR FILTRATION RATE > 60.0 (>35); GLUCOSE, FASTING 337 MG/DL (70-100); LIPASE 78 U/L (73-393); POTASSIUM SERUM 4.9 MEQ/L (3.5-5.1); SODIUM LEVEL 141 MEQ/L (136-145); TOTAL PROTEIN 6.4 GM/DL (6.4-8.2)
== END ==
LOC: M SFHCPLAZ 11:06
PROVIDERS: ATTEND Physician Assistant
DX: R10.32 Left lower quadrant pain (principal)

== ENCOUNTER → 2020-12-02 | Outpatient (CLI) | payer MEDICARE ==
[~2020-12-02] MED LIST changes: +GASTROGRAFIN SOLUTION 30ML (Q9963) As Ordered ONE; +ISOVUE-370 76% 100ML VIAL As Ordered ONE
--- NOTE | 2020-12-02 12:13 | REP ---
INDICATION: LLQ PAIN. COMPARISON: Comparison CT study October 06, 2007.. TECHNIQUE: Helical scanning is acquired and 3 mm axial images re-formatted. Coronal and sagittal MPR images are generated. The CT contrast enhancement dose is 100 mL of intravenous Isovue 370. Oral contrast was also administered. FINDINGS: Digital preliminary cardiac surgeon radiograph shows a pacemaker in the right heart and surgical clips in the left inguinal soft tissues. Bowel gas pattern is normal. Clothing artifact is visible. On axial CT images, the lung bases show some calcific pleural plaquing over the diaphragm and an old healed rib fracture on the left. No pleural effusion or upper abdominal ascites is seen. The liver and the spleen are normal in size homogeneous in texture. Normal adrenal glands are observed. No abnormality is noted in the pancreas. The gallbladder is unremarkable. Small and large intestinal bowel loops are normal in the upper abdomen. There are tiny cortical cysts within the kidneys bilaterally. There is a 4 cm cyst in the periphery of the lower pole of the left kidney unchanged. There is no evidence of intrarenal hydronephrosis on either side. The mid and distal ureters are a little prominent but there is no evidence of ureteral mass or calculus. Prostate gland is is in somewhat enlarged. Urinary bladder is intact. The appendix is surgically absent. There is mild diverticulosis affecting the descending segment of the colon. There is no CT evidence of diverticulitis. No evidence of bowel obstruction. No abdominal wall defect is seen. Bone window settings show some degenerative spondylosis changes. IMPRESSION: Left colonic diverticulosis without CT evidence of diverticulitis. Peripheral cyst lower pole left9 kidney 4 cm in diameter unchanged. Prostate enlargement. No hydronephrosis. Calcific pleural plaquing consistent with previous asbestos exposure. <Electronically signed by Dheeraj Heaton > 12/02/20 [id number]
== END ==
LOC: M RAD 10:14
PROVIDERS: ATTEND Physician Assistant
DX: R10.32 Left lower quadrant pain (principal)
CPT/HCPCS: 74177; Q9963; Q9967

== ENCOUNTER → 2020-12-31 | Outpatient (REF) | payer MEDICARE ==
[~2020-12-31] MED LIST changes: -GASTROGRAFIN SOLUTION 30ML (Q9963) As Ordered ONE; -ISOVUE-370 76% 100ML VIAL As Ordered ONE; -LISI-542 PO; +LISI-898 PO; +LISI10TA22 PO; -LISI10TA4 PO
[2020-12-31 14:47] LABS: ALBUMIN 3.6 GM/DL (3.2-5.2); ALT/SGPT 21 U/L (12-78); BILIRUBIN,TOTAL 0.5 MG/DL (0.2-1.0); BLOOD UREA NITROGEN 27 MG/DL (7-18); CALCIUM LEVEL 9.3 MG/DL (8.8-10.2); CARBON DIOXIDE LEVEL 31 MEQ/L (21-32); CHLORIDE LEVEL 106 MEQ/L (98-107); CREATININE FOR GFR 1.15 MG/DL (0.70-1.30); GLOMERULAR FILTRATION RATE > 60.0 (>35); GLUCOSE, FASTING 131 MG/DL (70-100); POTASSIUM SERUM 4.5 MEQ/L (3.5-5.1); SODIUM LEVEL 141 MEQ/L (136-145); TOTAL PROTEIN 6.6 GM/DL (6.4-8.2)
== END ==
LOC: M SFHCPLAZ 09:01
PROVIDERS: ATTEND Nurse Practitioner Adult Health
DX: I11.0 Hypertensive heart disease with heart failure (principal)

== ENCOUNTER → 2021-02-18 | Outpatient (REF) | payer MEDICARE ==
[2021-02-18 13:42] LABS: HEMOGLOBIN A1c 7.9 %
[2021-02-18 13:44] LABS: ALBUMIN 3.8 GM/DL (3.2-5.2); ALT/SGPT 22 U/L (12-78); BILIRUBIN,TOTAL 0.5 MG/DL (0.2-1.0); BLOOD UREA NITROGEN 20 MG/DL (7-18); CALCIUM LEVEL 8.8 MG/DL (8.8-10.2); CARBON DIOXIDE LEVEL 31 MEQ/L (21-32); CHLORIDE LEVEL 107 MEQ/L (98-107); CREATININE FOR GFR 0.94 MG/DL (0.70-1.30); GLOMERULAR FILTRATION RATE > 60.0 (>35); GLUCOSE, FASTING 176 MG/DL (70-100); POTASSIUM SERUM 4.3 MEQ/L (3.5-5.1); SODIUM LEVEL 141 MEQ/L (136-145); TOTAL PROTEIN 6.8 GM/DL (6.4-8.2); URIC ACID 4.6 MG/DL (3.5-7.2)
== END ==
LOC: M SFHCADAM 09:29
PROVIDERS: ATTEND Internal Medicine
DX: I11.0 Hypertensive heart disease with heart failure (principal); E11.29 Type 2 diabetes mellitus with other diabetic kidney complication; M10.9 Gout, unspecified; I50.9 Heart failure, unspecified

== ENCOUNTER → 2021-07-07 | Outpatient (CLI) | payer MEDICARE ==
--- NOTE | 2021-07-07 12:01 | REP ---
INDICATION: OCCLUSION AND STENOSIS OF SHANAE CAROTID COMPARISON: 07/30/2020. TECHNIQUE: Real-time ultrasound evaluation and duplex Doppler interrogation of the extracranial carotid vasculature is performed. FINDINGS: There is mild plaquing and narrowing in both carotid bulbs extending into the internal and external carotid arteries. Luminal narrowing is less than 50%. There is no evidence of hemodynamically significant stenosis of either internal carotid artery. Normal flow velocities are seen. The vertebral arteries demonstrate normal direction of flow. RIGHT LEFT Peak systolic velocity ICA 57.3 cm/s 87.5 cm/s End diastolic velocity ICA 6.9 cm/s 32.4 cm/s Peak systolic velocity CCA 92.5 cm/s 112.2cm/s Peak systolic velocity ECA 89.7 cm/s 159.6 cm/s ICA/CCA ratio 0.6 0.8 IMPRESSION: Bilateral luminal narrowing of the internal carotid arteries less than 50%. No evidence of hemodynamically significant stenosis. <Electronically signed by Nasir Wong > 07/07/21 1159
== END ==
LOC: M RAD 10:17
PROVIDERS: ATTEND Surgery Vascular Surgery
DX: I65.23 Occlusion and stenosis of bilateral carotid arteries (principal)

== ENCOUNTER 2021-09-22 13:02 | Emergency (ER) | payer MEDICARE ==
[~2021-09-22] VITALS: Ht 172.7 cm; Wt 100.2 kg
[2021-09-22] MEDS ORDERED: DULO1CAP6 (13:16)
[2021-09-22] MEDS ORDERED: LOSA25TA14 (13:16)
[2021-09-22] MEDS ORDERED: methylPREDNISolone 125MG 2ML VIAL IV ONE (16:15)
[2021-09-22] MEDS: COMBIVENT RESPIMAT 100-20MCG INHALER 4GM INH SCH ×2 (16:38→16:59)
--- NOTE | 2021-09-22 16:40 | REP ---
INDICATION: DYSPNEA/COUGH COMPARISON: 02/28/2020 TECHNIQUE: Portable AP view of the chest FINDINGS: Mediastinum and cardiac silhouette are stable. Lung patel demonstrate chronic stable changes. No acute consolidation, effusion, or pneumothorax. Skeletal structures demonstrate age-related changes. IMPRESSION: No acute cardiopulmonary process appreciated. <Electronically signed by Shay Campa > 09/22/21 [id number]
[2021-09-22 16:48] LABS: BASO % 0.2 % (0.0-1.0); EOS # 0.2 10^3/uL (0.0-0.5); EOS % 1.3 % (0.0-3.0); HEMATOCRIT 44.3 % (42.0-52.0); HEMOGLOBIN 13.8 g/dl (13.5-17.5); LYMPH # 1.8 10^3/uL (1.5-5.0); LYMPH % 14.2 % (24.0-44.0); MEAN CORPUSCULAR HEMOGLOBIN 29.6 pg (27.0-33.0); MEAN CORPUSCULAR HGB CONC 31.2 g/dl (32.0-36.5); MEAN CORPUSCULAR VOLUME 95.1 fl (80.0-96.0); MONO # 1.1 10^3/uL (0.0-0.8); MONO % 9.2 % (2.0-8.0); NEUTROPHILS # 9.3 10^3/uL (1.5-8.5); NEUTROPHILS % 74.6 % (36.0-66.0); PLATELET COUNT, AUTOMATED 167 10^3/uL (150-450); RED BLOOD COUNT 4.66 10^6/uL (4.30-6.10); WHITE BLOOD COUNT 12.4 10^3/uL (4.0-10.0)
[2021-09-22 16:56] LABS: ABG BASE EXCESS -3.2 (-2.0-2.0); ABG HCO3 21.2 MEQ/L (22.0-26.0); ABG O2 SATURATION 94.2 % (95.0-99.0); ABG PARTIAL PRESSURE CO2 36.1 mmHg (35.0-45.0); ABG PARTIAL PRESSURE O2 69.6 mmHg (75.0-100.0); ABG STANDARD HCO3 21.8 MEQ/L (22.0-26.0); ABG TOTAL CO2 22.3 MEQ/L (23.0-31.0); ABG pH (ARTERIAL) 7.387 UNITS (7.350-7.450)
[2021-09-22 17:10] LABS: RSV AMPLIFICATION NEGATIVE (NEGATIVE)
[2021-09-22 17:13] LABS: ALBUMIN 3.4 GM/DL (3.2-5.2); ALT/SGPT 21 U/L (12-78); BILIRUBIN,DIRECT < 0.1 MG/DL (0.0-0.2); BILIRUBIN,TOTAL 0.3 MG/DL (0.2-1.0); NT-PRO BNP 319 PG/ML (<450); THYROXINE (T4) 4.8 UG/DL (4.5-12.0); TOTAL PROTEIN 6.7 GM/DL (6.4-8.2)
[2021-09-22] MEDS ORDERED: ALBUTEROL 90 MCG/ACT 8GM HFA INHALER INH ONE (17:25)
[2021-09-22] MEDS ORDERED: MOXIFLOXACIN 400 MG TAB PO ONE (17:25)
[2021-09-22] MEDS ORDERED: MOXI1TAB PO (17:28)
[2021-09-22] MEDS ORDERED: PRED20TA PO (17:29)
[2021-09-22] MEDS ORDERED: ALBU8.5H INH (17:29)
[2021-09-22] MEDS ORDERED: DOXYCYCLINE HYCLATE 100MG TABLET PO ONE (17:40)
[2021-09-22] MEDS ORDERED: DOXY-443 PO (17:42)
[2021-09-22 17:45] VITALS: BP 125/60
--- NOTE | 2021-09-23 16:52 | ECGEPIP ---
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
== END 2021-09-22 18:03 | disposition home or self-care (01) ==
LOC: M ED 13:02
DX: J20.9 Acute bronchitis, unspecified (principal); J45.909 Unspecified asthma, uncomplicated; I50.9 Heart failure, unspecified; I25.10 Atherosclerotic heart disease of native coronary artery without angina pectoris; I25.2 Old myocardial infarction; E11.9 Type 2 diabetes mellitus without complications; I10 Essential (primary) hypertension; J44.9 Chronic obstructive pulmonary disease, unspecified; N18.9 Chronic kidney disease, unspecified; M54.9 Dorsalgia, unspecified; F32.9 Major depressive disorder, single episode, unspecified; Z86.73 Personal history of transient ischemic attack (TIA), and cerebral infarction without residual deficits; Z95.0 Presence of cardiac pacemaker; Z95.5 Presence of coronary angioplasty implant and graft; Z79.82 Long term (current) use of aspirin; Z79.4 Long term (current) use of insulin; Z79.899 Other long term (current) drug therapy; Z91.89 Other specified personal risk factors, not elsewhere classified
CPT/HCPCS: 36600; 71045; 80047; 80076; 82803; 83605; 83880; 84436; 84443; 84484; 85025; 87040; 87631; 93005; 93041; 94640; 94664; 96374; 99285; J2930

== ENCOUNTER → 2021-09-28 | Outpatient (CLI) | payer MEDICARE ==
[~2021-09-28] MED LIST changes: +ALBU8.5H INH; -CEFD1CAP8 PO; +CEFD300C41 PO; +DOXY-443 PO; +DULO1CAP6; -LISI-898 PO; +LISI5TAB11 PO; +LOSA25TA13; +MOXI1TAB PO; +PRED20TA PO
[2021-09-28 14:01] LABS: HEMOGLOBIN A1c 9.2 %
[2021-09-28 14:10] LABS: CHOLESTEROL RISK RATIO 2.612 (<5); MAGNESIUM LEVEL 1.6 MG/DL (1.8-2.4)
[2021-09-28 14:11] LABS: FOLATE 14.1 NG/ML
[2021-09-28 14:34] LABS: CREATININE, URINE 41.6 MG/DL; MALB URINE SIEMENS 10.5 MG/L; MAU/CREAT RATIO 25.2 MCG/MG (0.0-30.0)
== END ==
LOC: M PLALAB 10:38
PROVIDERS: ATTEND Internal Medicine
DX: E11.29 Type 2 diabetes mellitus with other diabetic kidney complication (principal); E78.00 Pure hypercholesterolemia, unspecified; I11.0 Hypertensive heart disease with heart failure; N18.31 Chronic kidney disease, stage 3a; G62.9 Polyneuropathy, unspecified

== ENCOUNTER → 2021-09-28 | Outpatient (REF) | payer MEDICARE | LOC: M SFHCPLAZ 10:17 | PROVIDERS: ATTEND Internal Medicine | DX: E11.29 Type 2 diabetes mellitus with other diabetic kidney complication (principal); E78.00 Pure hypercholesterolemia, unspecified; I11.0 Hypertensive heart disease with heart failure; N18.31 Chronic kidney disease, stage 3a; G62.9 Polyneuropathy, unspecified ==

== ENCOUNTER → 2021-10-08 | Outpatient (CLI) | payer MEDICARE | LOC: M LABSMTC 11:40 | PROVIDERS: ATTEND Pediatrics | DX: Z20.822 Contact with and (suspected) exposure to COVID-19 (principal) | CPT/HCPCS: C9803; U0003 ==

== ENCOUNTER 2021-10-14 10:11 | Outpatient (CLI) | payer MEDICARE ==
[~2021-10-14] VITALS: Ht 172.7 cm; Wt 97.0 kg
[~2021-10-14 10:11] MED LIST changes: +ALBUTEROL 90 MCG/ACT 8GM HFA INHALER INH PRN; +ALBUTEROL SULFATE 2.5 MG/0.5 ML INH NEB SOLN INH PRN; +CASIRIVIMAB/IMDEVIMAB 1,200 MG in NS 250 ML IV ONE; +CEFD1CAP8 PO; -CEFD300C41 PO; +EPINEPHrine INJ 1 MG/ML 1ML AMP IM PRN; +LISI-898 PO; -LISI5TAB11 PO; -LOSA25TA13; +LOSA25TA14; +NS 1,000 ML IV SCH; +diphenhydrAMINE 50MG/ML VIAL (J1200) IV PRN; +methylPREDNISolone 125MG 2ML VIAL IV PRN
[2021-10-14 10:43] VITALS: BP 136/76
[2021-10-14 11:13] VITALS: BP 135/65
[2021-10-14 11:43] VITALS: BP 133/71
[2021-10-14 12:43] VITALS: BP 135/69
== END 2021-10-14 12:43 | disposition home or self-care (01) ==
LOC: M OPCLI4PR 10:11
PROVIDERS: ATTEND Internal Medicine
DX: U07.1 COVID-19 (principal); Z91.048 Other nonmedicinal substance allergy status

== ENCOUNTER → 2021-12-28 | Outpatient (CLI) | payer MEDICARE ==
[~2021-12-28] MED LIST changes: -ALBUTEROL 90 MCG/ACT 8GM HFA INHALER INH PRN; -ALBUTEROL SULFATE 2.5 MG/0.5 ML INH NEB SOLN INH PRN; -CASIRIVIMAB/IMDEVIMAB 1,200 MG in NS 250 ML IV ONE; -CEFD1CAP8 PO; +CEFD300C41 PO; -EPINEPHrine INJ 1 MG/ML 1ML AMP IM PRN; -LISI-898 PO; +LISI5TAB11 PO; +LOSA25TA13; -LOSA25TA14; -NS 1,000 ML IV SCH; -diphenhydrAMINE 50MG/ML VIAL (J1200) IV PRN; -methylPREDNISolone 125MG 2ML VIAL IV PRN
== END ==
LOC: M PLAIMG 14:35
PROVIDERS: ATTEND Internal Medicine
DX: M25.551 Pain in right hip (principal); M16.11 Unilateral primary osteoarthritis, right hip; M76.891 Other specified enthesopathies of right lower limb, excluding foot

== ENCOUNTER → 2022-02-23 | Outpatient (REF) | payer MEDICARE ==
[2022-02-23 13:03] LABS: ALBUMIN 3.7 GM/DL (3.2-5.2); BILIRUBIN,TOTAL 0.6 MG/DL (0.2-1.0); CALCIUM LEVEL 9.3 MG/DL (8.8-10.2); CHOLESTEROL RISK RATIO 2.717 (<5); CREATININE FOR GFR 1.27 MG/DL (0.70-1.30); FOLATE 20.5 NG/ML; GLOMERULAR FILTRATION RATE 57.5 (>35); POTASSIUM SERUM 4.4 MEQ/L (3.5-5.1); PTH INTACT 74.2 PG/ML (18.5-88.0); TOTAL PROTEIN 6.7 GM/DL (6.4-8.2); URIC ACID 5.3 MG/DL (3.5-7.2)
[2022-02-23 13:44] LABS: HEMOGLOBIN A1c 8.1 %
== END ==
LOC: M SFHCADAM 08:51
PROVIDERS: ATTEND Internal Medicine
DX: E11.29 Type 2 diabetes mellitus with other diabetic kidney complication (principal); I13.0 Hypertensive heart and chronic kidney disease with heart failure and stage 1 through stage 4 chronic kidney disease, or unspecified chronic kidney disease; M10.9 Gout, unspecified; N18.31 Chronic kidney disease, stage 3a; Z79.4 Long term (current) use of insulin; E53.8 Deficiency of other specified B group vitamins; E78.00 Pure hypercholesterolemia, unspecified; I50.9 Heart failure, unspecified

== ENCOUNTER → 2022-04-01 | Outpatient (CLI) | payer MEDICARE | LOC: M PLAIMG 12:28 | PROVIDERS: ATTEND Psychiatry & Neurology Neurology | DX: F03.91 Unspecified dementia, unspecified severity, with behavioral disturbance (principal); F02.81 Dementia in other diseases classified elsewhere, unspecified severity, with behavioral disturbance ==

== ENCOUNTER → 2022-05-24 | Outpatient (CLI) | payer MEDICARE ==
[2022-05-24 19:27] LABS: ALBUMIN 3.5 GM/DL (3.2-5.2); BILIRUBIN,TOTAL 0.2 MG/DL (0.2-1.0); CALCIUM LEVEL 8.9 MG/DL (8.8-10.2); CREATININE FOR GFR 1.34 MG/DL (0.70-1.30); GLOMERULAR FILTRATION RATE 54.1 (>35); POTASSIUM SERUM 5.4 MEQ/L (3.5-5.1); THYROID STIMULATING HORMONE 1.99 uIU/ML (0.358-3.740); TOTAL PROTEIN 6.7 GM/DL (6.4-8.2)
[2022-05-24 23:18] LABS: HEMOGLOBIN A1c 9.5 %
== END ==
LOC: M PLALAB 14:12
PROVIDERS: ATTEND Internal Medicine
DX: E11.29 Type 2 diabetes mellitus with other diabetic kidney complication (principal); E78.00 Pure hypercholesterolemia, unspecified

== ENCOUNTER → 2022-08-11 | Outpatient (CLI) | payer MEDICARE ==
[2022-08-11 15:14] LABS: HEMATOCRIT 39.2 % (42.0-52.0); HEMOGLOBIN 12.5 g/dl (13.5-17.5); MEAN CORPUSCULAR HEMOGLOBIN 30.3 pg (27.0-33.0); MEAN CORPUSCULAR HGB CONC 31.9 g/dl (32.0-36.5); MEAN CORPUSCULAR VOLUME 95.1 fl (80.0-96.0); PLATELET COUNT, AUTOMATED 176 10^3/uL (150-450); RED BLOOD COUNT 4.12 10^6/uL (4.30-6.10); WHITE BLOOD COUNT 8.3 10^3/uL (4.0-10.0)
[2022-08-11 15:52] LABS: HEMOGLOBIN A1c 8.3 %
[2022-08-11 16:12] LABS: ALBUMIN 3.4 GM/DL (3.2-5.2); BILIRUBIN,TOTAL 0.3 MG/DL (0.2-1.0); C REACTIVE PROTEIN QUANTITATIV 0.67 MG/DL (0.00-0.30); CALCIUM LEVEL 8.8 MG/DL (8.8-10.2); CREATININE FOR GFR 1.38 MG/DL (0.70-1.30); FREE T4 0.68 NG/DL (0.76-1.46); GLOMERULAR FILTRATION RATE 52.3 (>35); POTASSIUM SERUM 4.7 MEQ/L (3.5-5.1); THYROID STIMULATING HORMONE 2.21 uIU/ML (0.358-3.740); TOTAL PROTEIN 6.5 GM/DL (6.4-8.2)
[2022-08-11 16:15] LABS: MALB URINE SIEMENS 9.5 MG/L; MAU/CREAT RATIO 7.7 MCG/MG (0.0-30.0)
[2022-08-11 16:30] LABS: TOTAL 25(OH) VITAMIN D 41.6 NG/ML (30.0-100.0)
== END ==
LOC: M PLALAB 13:09
PROVIDERS: ATTEND Internal Medicine Hematology
DX: E11.29 Type 2 diabetes mellitus with other diabetic kidney complication (principal)

== ENCOUNTER → 2022-08-16 | Outpatient (CLI) | payer MEDICARE ==
[2022-08-16 15:56] LABS: MEAN CORPUSCULAR HEMOGLOBIN 29.5 pg (27.0-33.0); MEAN CORPUSCULAR VOLUME 95.2 fl (80.0-96.0); PLATELET COUNT, AUTOMATED 200 10^3/uL (150-450); RED BLOOD COUNT 4.41 10^6/uL (4.30-6.10); WHITE BLOOD COUNT 11.7 10^3/uL (4.0-10.0)
[2022-08-16 17:20] LABS: CALCIUM LEVEL 9.3 MG/DL (8.8-10.2); CREATININE FOR GFR 1.28 MG/DL (0.70-1.30); POTASSIUM SERUM 4.5 MEQ/L (3.5-5.1)
== END ==
LOC: M PLALAB 12:24
PROVIDERS: ATTEND Internal Medicine Hematology
DX: Z01.818 Encounter for other preprocedural examination (principal); I13.0 Hypertensive heart and chronic kidney disease with heart failure and stage 1 through stage 4 chronic kidney disease, or unspecified chronic kidney disease; E11.29 Type 2 diabetes mellitus with other diabetic kidney complication; N18.31 Chronic kidney disease, stage 3a; I25.10 Atherosclerotic heart disease of native coronary artery without angina pectoris; E78.00 Pure hypercholesterolemia, unspecified; E11.42 Type 2 diabetes mellitus with diabetic polyneuropathy; I50.9 Heart failure, unspecified

== ENCOUNTER → 2022-08-16 | Outpatient (REF) | payer MEDICARE ==
[2022-08-16 10:32] LABS: HEMATOCRIT 41.4 % (42.0-52.0); HEMOGLOBIN 12.6 g/dl (13.5-17.5); MEAN CORPUSCULAR HEMOGLOBIN 29.4 pg (27.0-33.0); MEAN CORPUSCULAR HGB CONC 30.4 g/dl (32.0-36.5); MEAN CORPUSCULAR VOLUME 96.5 fl (80.0-96.0); PLATELET COUNT, AUTOMATED 192 10^3/uL (150-450); RED BLOOD COUNT 4.29 10^6/uL (4.30-6.10)
[2022-08-16 10:52] LABS: HEMOGLOBIN A1c 8.3 %
[2022-08-16 11:21] LABS: ALBUMIN 3.6 GM/DL (3.2-5.2); BILIRUBIN,TOTAL 0.4 MG/DL (0.2-1.0); C REACTIVE PROTEIN QUANTITATIV 2.28 MG/DL (0.00-0.30); CALCIUM LEVEL 8.5 MG/DL (8.8-10.2); CHOLESTEROL RISK RATIO 2.72 (<5); CREATININE FOR GFR 1.28 MG/DL (0.70-1.30); FREE T4 0.73 NG/DL (0.76-1.46); POTASSIUM SERUM 4.5 MEQ/L (3.5-5.1); THYROID STIMULATING HORMONE 2.15 uIU/ML (0.358-3.740); TOTAL PROTEIN 6.7 GM/DL (6.4-8.2)
[2022-08-16 11:46] LABS: MALB URINE SIEMENS 11.5 MG/L; MAU/CREAT RATIO 10.7 MCG/MG (0.0-30.0)
[2022-08-16 12:00] LABS: TOTAL 25(OH) VITAMIN D 47.8 NG/ML (30.0-100.0)
== END ==
PROVIDERS: ATTEND Internal Medicine Hematology
DX: E11.29 Type 2 diabetes mellitus with other diabetic kidney complication (principal); Z79.899 Other long term (current) drug therapy

== ENCOUNTER → 2022-08-20 | Outpatient (REF) | payer MEDICARE | LOC: M LAB REF 15:58 | PROVIDERS: ATTEND Surgery | DX: Z85.820 Personal history of malignant melanoma of skin (principal) ==

== ENCOUNTER → 2022-08-25 | Outpatient (REF) | payer MEDICARE ==
[2022-08-25 10:22] LABS: CALCIUM LEVEL 9.5 MG/DL (8.8-10.2); CREATININE FOR GFR 1.43 MG/DL (0.70-1.30); GLOMERULAR FILTRATION RATE 50.2 (>35); POTASSIUM SERUM 4.5 MEQ/L (3.5-5.1)
== END ==
PROVIDERS: ATTEND Ophthalmology
DX: Z01.818 Encounter for other preprocedural examination (principal); H02.135 Senile ectropion of left lower eyelid

== ENCOUNTER → 2022-08-31 | Outpatient (REF) | payer MEDICARE | PROVIDERS: ATTEND Ophthalmology | DX: Z01.818 Encounter for other preprocedural examination (principal); Z20.822 Contact with and (suspected) exposure to COVID-19 ==

== ENCOUNTER 2022-09-11 15:00 | Emergency (ER) | payer MEDICARE ==
[~2022-09-11] VITALS: Ht 172.7 cm; Wt 100.0 kg
[2022-09-11 15:08] VITALS: BP 108/64
[2022-09-11 15:48] LABS: BASO % 0.2 % (0.0-1.0); EOS # 0.1 10^3/uL (0.0-0.5); EOS % 0.5 % (0.0-3.0); HEMATOCRIT 42.4 % (42.0-52.0); HEMOGLOBIN 13.5 g/dl (13.5-17.5); LYMPH # 1.8 10^3/uL (1.5-5.0); LYMPH % 11.2 % (24.0-44.0); MEAN CORPUSCULAR HEMOGLOBIN 30.1 pg (27.0-33.0); MEAN CORPUSCULAR HGB CONC 31.8 g/dl (32.0-36.5); MEAN CORPUSCULAR VOLUME 94.4 fl (80.0-96.0); MONO # 1.2 10^3/uL (0.0-0.8); MONO % 7.6 % (2.0-8.0); NEUTROPHILS # 12.7 10^3/uL (1.5-8.5); NEUTROPHILS % 80.1 % (36.0-66.0); PLATELET COUNT, AUTOMATED 197 10^3/uL (150-450); RED BLOOD COUNT 4.49 10^6/uL (4.30-6.10); WHITE BLOOD COUNT 15.9 10^3/uL (4.0-10.0)
[2022-09-11 16:28] LABS: ALBUMIN 3.5 GM/DL (3.2-5.2); BILIRUBIN,TOTAL 0.6 MG/DL (0.2-1.0); CALCIUM LEVEL 9.1 MG/DL (8.8-10.2); CREATININE FOR GFR 1.65 MG/DL (0.70-1.30); GLOMERULAR FILTRATION RATE 42.5 (>35); POTASSIUM SERUM 4.4 MEQ/L (3.5-5.1); TOTAL PROTEIN 6.7 GM/DL (6.4-8.2)
[2022-09-11] MEDS ORDERED: methylPREDNISolone 125MG 2ML VIAL IV ONE (17:15)
[2022-09-11] MEDS ORDERED: ALBUTEROL SULFATE 2.5 MG/0.5 ML INH NEB SOLN INH ONE (17:15)
[2022-09-11] MEDS ORDERED: NS 500 ML IV ONE (17:15)
[2022-09-11] MEDS ORDERED: IPRATROPIUM 0.5MG/ALBUTEROL 2.5MG INH SOL UD 3ML (DUONEB) NEB ONE (17:15)
[2022-09-11 19:06] LABS: CK-MB VALUE MASS 1.6 NG/ML (<3.6); MB/CK RELATIVE INDEX 2.13 (< OR =4)
[2022-09-11] MEDS ORDERED: MIRA3350 PO (20:28)
[2022-09-11] MEDS ORDERED: PRED20TA PO (20:28)
[2022-09-11] MEDS ORDERED: CEFU1TAB20 PO (20:28)
[2022-09-11] MEDS ORDERED: CEFUROXIME 500 MG TAB PO ONE (20:35)
[2022-09-11 20:42] VITALS: O2SAT 95
== END 2022-09-11 21:06 | disposition home or self-care (01) ==
LOC: M ED 15:00
DX: J44.1 Chronic obstructive pulmonary disease with (acute) exacerbation (principal); R06.00 Dyspnea, unspecified; R05.9 Cough, unspecified; R53.1 Weakness; N17.9 Acute kidney failure, unspecified; R11.10 Vomiting, unspecified; R51.9 Headache, unspecified; R29.6 Repeated falls; I11.0 Hypertensive heart disease with heart failure; E11.22 Type 2 diabetes mellitus with diabetic chronic kidney disease; I25.10 Atherosclerotic heart disease of native coronary artery without angina pectoris; I50.9 Heart failure, unspecified; I25.2 Old myocardial infarction; N18.9 Chronic kidney disease, unspecified; N40.0 Benign prostatic hyperplasia without lower urinary tract symptoms; Z86.73 Personal history of transient ischemic attack (TIA), and cerebral infarction without residual deficits; Z87.891 Personal history of nicotine dependence; Z91.048 Other nonmedicinal substance allergy status; Z79.899 Other long term (current) drug therapy; Z79.82 Long term (current) use of aspirin; Z79.4 Long term (current) use of insulin
CPT/HCPCS: 70450; 71045; 71250; 74176; 80053; 81002; 82550; 82553; 83605; 83690; 83880; 84484; 85025; 87040; 87486; 87581; 87633; 87798; 93005; 94640; 96361; 96374; 99284; J2930

== ENCOUNTER → 2022-09-29 | Outpatient (REF) | payer MEDICARE ==
[~2022-09-29] MED LIST changes: +CEFU1TAB20 PO; +MIRA3350 PO
[2022-09-29 12:05] LABS: HEMATOCRIT 46.5 % (42.0-52.0); HEMOGLOBIN 14.1 g/dl (13.5-17.5); MEAN CORPUSCULAR HEMOGLOBIN 29.1 pg (27.0-33.0); MEAN CORPUSCULAR HGB CONC 30.3 g/dl (32.0-36.5); MEAN CORPUSCULAR VOLUME 95.9 fl (80.0-96.0); PLATELET COUNT, AUTOMATED 177 10^3/uL (150-450); RED BLOOD COUNT 4.85 10^6/uL (4.30-6.10)
[2022-09-29 12:55] LABS: CHOLESTEROL RISK RATIO 2.98 (<5); HDL CHOLESTEROL 44.2 MG/DL (>40); LDL CHOLESTEROL 71.2 MG/DL (<100)
[2022-09-29 12:58] LABS: ALBUMIN 3.5 G/DL (3.2-5.2); BILIRUBIN,TOTAL 0.5 MG/DL (0.3-1.2); CALCIUM LEVEL 8.5 MG/DL (8.3-10.6); CREATININE FOR GFR 1.36 MG/DL (0.70-1.30); GLOMERULAR FILTRATION RATE 53.1 (>35); POTASSIUM SERUM 4.5 MMOL/L (3.5-5.1); TOTAL PROTEIN 6.6 G/DL (5.7-8.2)
== END ==
PROVIDERS: ATTEND Internal Medicine Hematology
DX: E11.29 Type 2 diabetes mellitus with other diabetic kidney complication (principal); Z79.899 Other long term (current) drug therapy

== ENCOUNTER → 2022-10-04 | Outpatient (REF) | payer MEDICARE ==
[~2022-10-04] MED LIST changes: +ACET650T15 PO; +ALLO300T2 PO; +AMIT10TA7 PO; +ASPI325T57 PO; +B-12100010 PO; +C 50TAB PO; +DIGO0.123 PO; -DULO1CAP6; +DULO1CAP6 PO; +FLUT1INH INH; +FLUTISP NARES; +HUMA100I5 SC; +JARD1TAB PO; +LORA-674 PO; -LOSA25TA13; +LOSA25TA13 PO; +NITR4TASL SL; +OZEM2INJ SC; +PROA1AER2 INH; +SIME1CAP PO; +TORS20TA2 PO; +VITA100054 PO; +ZOCO80TA PO
== END ==
PROVIDERS: ATTEND Internal Medicine Hematology
DX: Z20.822 Contact with and (suspected) exposure to COVID-19 (principal)

== ENCOUNTER → 2022-10-04 | Outpatient (CLI) | payer MEDICARE ==
[~2022-10-04] MED LIST changes: -ACET650T15 PO; -ALLO300T2 PO; -AMIT10TA7 PO; -ASPI325T57 PO; -B-12100010 PO; -C 50TAB PO; -DIGO0.123 PO; +DULO1CAP6; -DULO1CAP6 PO; -FLUT1INH INH; -FLUTISP NARES; -HUMA100I5 SC; -JARD1TAB PO; -LORA-674 PO; +LOSA25TA13; -LOSA25TA13 PO; -NITR4TASL SL; -OZEM2INJ SC; -PROA1AER2 INH; -SIME1CAP PO; -TORS20TA2 PO; -VITA100054 PO; -ZOCO80TA PO
== END ==
LOC: M PLAIMG 12:32
PROVIDERS: ATTEND Internal Medicine Hematology
DX: I11.0 Hypertensive heart disease with heart failure (principal); I50.9 Heart failure, unspecified; J84.10 Pulmonary fibrosis, unspecified; Z95.0 Presence of cardiac pacemaker

== ENCOUNTER → 2022-10-06 | Outpatient (REF) | payer MEDICARE ==
[2022-10-06 12:25] LABS: HEMATOCRIT 39.7 % (42.0-52.0); HEMOGLOBIN 12.1 g/dl (13.5-17.5); MEAN CORPUSCULAR HEMOGLOBIN 28.9 pg (27.0-33.0); MEAN CORPUSCULAR HGB CONC 30.5 g/dl (32.0-36.5); PLATELET COUNT, AUTOMATED 173 10^3/uL (150-450); RED BLOOD COUNT 4.18 10^6/uL (4.30-6.10); WHITE BLOOD COUNT 8.7 10^3/uL (4.0-10.0)
[2022-10-06 12:45] LABS: CALCIUM LEVEL 8.4 MG/DL (8.3-10.6); CREATININE FOR GFR 1.89 MG/DL (0.70-1.30); GLOMERULAR FILTRATION RATE 36.4 (>35); POTASSIUM SERUM 4.3 MMOL/L (3.5-5.1)
== END ==
PROVIDERS: ATTEND Internal Medicine Hematology
DX: I11.0 Hypertensive heart disease with heart failure (principal); I50.9 Heart failure, unspecified

== ENCOUNTER → 2022-10-15 | Outpatient (REF) | payer MEDICARE | PROVIDERS: ATTEND Internal Medicine Hematology | DX: Z20.822 Contact with and (suspected) exposure to COVID-19 (principal) ==

== ENCOUNTER 2022-10-25 10:37 | Inpatient (IN) | payer MEDICARE ==
[2022-10-25] VITALS (8 sets, daily range): BP systolic 108–127; BP diastolic 52–61; O2SAT 87–93
[~2022-10-25] VITALS: Ht 167.6 cm; Wt 75.0 kg
[~2022-10-25 10:37] MED LIST changes: -DULO1CAP6; +DULO1CAP6 PO; -LOSA25TA13; +LOSA25TA13 PO
[2022-10-25] MEDS ORDERED: methylPREDNISolone 125MG 2ML VIAL IV ONE (10:55)
[2022-10-25] MEDS ORDERED: IPRATROPIUM 0.5MG/ALBUTEROL 2.5MG INH SOL UD 3ML (DUONEB) NEB ONE (10:55)
[2022-10-25] MEDS ORDERED: ALBUTEROL SULFATE 2.5MG/0.5ML INH NEB SOLN INH ONE (10:55)
[2022-10-25 11:32] LABS: BASO % 0.1 % (0.0-1.0); HEMOGLOBIN 11.8 g/dl (13.5-17.5); LYMPH # 1.2 10^3/uL (1.5-5.0); LYMPH % 5.2 % (24.0-44.0); MEAN CORPUSCULAR HEMOGLOBIN 28.9 pg (27.0-33.0); MEAN CORPUSCULAR HGB CONC 31.1 g/dl (32.0-36.5); MEAN CORPUSCULAR VOLUME 92.9 fl (80.0-96.0); MONO # 1.1 10^3/uL (0.0-0.8); MONO % 4.9 % (2.0-8.0); NEUTROPHILS # 20.1 10^3/uL (1.5-8.5); NEUTROPHILS % 89.4 % (36.0-66.0); PLATELET COUNT, AUTOMATED 278 10^3/uL (150-450); RED BLOOD COUNT 4.09 10^6/uL (4.30-6.10); WHITE BLOOD COUNT 22.5 10^3/uL (4.0-10.0)
[2022-10-25] MEDS ORDERED: ISOVUE-370 76% 100ML VIAL As Ordered ONE (11:51)
[2022-10-25] MEDS ORDERED: PIPERACILLIN/TAZOBACTAM SOD 4.5 GM in D5W MINI-BAG PLUS 50 ML IV ONE (11:55)
[2022-10-25] MEDS ORDERED: DOXYCYCLINE HYCLATE 100 MG in D5W MINI-BAG PLUS 100 ML IV ONE (11:55)
[2022-10-25] MEDS ORDERED: NS 500 ML IV ONE (11:55)
[2022-10-25 11:57] LABS: BILIRUBIN,DIRECT 0.2 MG/DL (<0.4)
[2022-10-25 11:58] LABS: ALBUMIN 2.6 G/DL (3.2-5.2); ALKALINE PHOSPHATASE 53 U/L (46-116); ALT/SGPT 12 U/L (7.0-40); AST/SGOT 17 U/L (<34); BILIRUBIN,TOTAL 0.4 MG/DL (0.3-1.2); BLOOD UREA NITROGEN 23 MG/DL (9-23); CALCIUM LEVEL 8.2 MG/DL (8.3-10.6); CARBON DIOXIDE LEVEL 26 MMOL/L (20-31); CHLORIDE LEVEL 101 MMOL/L (98-107); CK-MB VALUE MASS < 1.0 NG/ML (<3.6); CPK CREATINE PHOSPHOKINASE 106 U/L (46-171); CREATININE FOR GFR 1.53 MG/DL (0.70-1.30); GLOMERULAR FILTRATION RATE 46.4 (>35); GLUCOSE, FASTING 241 MG/DL (74-106); MB/CK RELATIVE INDEX 0.94 (< OR =4); POTASSIUM SERUM 4.8 MMOL/L (3.5-5.1); SODIUM LEVEL 136 MMOL/L (136-145); TOTAL PROTEIN 6.2 G/DL (5.7-8.2)
[2022-10-25 11:59] LABS: THYROXINE (T4) 5.2 UG/DL (4.5-10.9)
[2022-10-25 12:00] LABS: THYROID STIMULATING HORMONE 1.092 uIU/ML (0.55-4.78)
[2022-10-25 13:05] LABS: CK-MB VALUE MASS 1.2 NG/ML (<3.6)
[2022-10-25] MEDS ORDERED: NS 1,000 ML IV ONE ×2 (13:40→16:30)
[2022-10-25] MEDS ORDERED: ASPIRIN 81MG CHEW TABLET PO ONE (13:40)
[2022-10-25] MEDS ORDERED: VANCOMYCIN HCL 1,000 MG, VIAL MATE ADAPTER 1 EACH in NS 250 ML IV SCH (13:45)
[2022-10-25] MEDS ORDERED: IPRATROPIUM 0.5MG/ALBUTEROL 2.5MG INH SOL UD 3ML (DUONEB) NEB PRN (13:45)
[2022-10-25] MEDS: IPRATROPIUM 0.5MG/ALBUTEROL 2.5MG INH SOL UD 3ML (DUONEB) NEB SCH ×3 (14:28→20:26)
[2022-10-25] MEDS ORDERED: JARD1TAB PO (14:55)
[2022-10-25] MEDS ORDERED: ALLO300T2 PO (14:55)
[2022-10-25] MEDS ORDERED: C 50TAB PO (14:55)
[2022-10-25] MEDS ORDERED: VITA100054 PO (14:55)
[2022-10-25] MEDS ORDERED: AMIT10TA7 PO (14:55)
[2022-10-25] MEDS ORDERED: HUMA75VL SC ×2 (14:55)
[2022-10-25] MEDS ORDERED: DIGO0.123 PO (14:55)
[2022-10-25] MEDS ORDERED: FLUTISP NARES (14:55)
[2022-10-25] MEDS ORDERED: OZEM2INJ SC (14:55)
[2022-10-25] MEDS ORDERED: FLUT1INH INH (14:55)
[2022-10-25] MEDS ORDERED: MIRA3350 PO (14:55)
[2022-10-25] MEDS ORDERED: ACET650T15 PO (14:55)
[2022-10-25] MEDS ORDERED: PROA1AER2 INH (14:55)
[2022-10-25] MEDS ORDERED: TORS20TA2 PO (14:55)
[2022-10-25] MEDS ORDERED: ZOCO80TA PO (14:55)
[2022-10-25] MEDS ORDERED: ASPI325T57 PO (14:55)
[2022-10-25] MEDS ORDERED: B-12100010 PO (14:55)
[2022-10-25] MEDS ORDERED: SIME1CAP PO (14:55)
[2022-10-25] MEDS ORDERED: LORA-674 PO (14:55)
[2022-10-25] MEDS ORDERED: HUMA100I5 SC ×2 (14:55)
[2022-10-25] MEDS ORDERED: NITR4TASL SL (14:55)
[2022-10-25] MEDS ORDERED: ENOXAPARIN 40MG/0.4ML SYRINGE (J1650 PER 10MG) SC ONE (15:00)
[2022-10-25] MEDS ORDERED: HOME MED LIST COMPLETE! XX SCH (15:00)
[2022-10-25] MEDS ORDERED: MIDODRINE 5 MG TAB PO SCH (16:00)
[2022-10-25] MEDS ORDERED: DEXTROSE 50% 50ML SYRINGE IV PRN (16:30)
[2022-10-25] MEDS ORDERED: GLUCOSE 4GM CHEW TABLET PO PRN (16:30)
[2022-10-25] MEDS ORDERED: GLUCAGON INJ 1MG VIAL SC PRN (16:30)
[2022-10-25] MEDS: cefTRIAXone SOD 2 GM in D5W MINI-BAG PLUS 50 ML IV SCH (17:43)
[2022-10-25] MEDS: INSULIN LISPRO (NovoLOG) PER UNIT SC SCH ×2 (17:44→20:41)
[2022-10-25] MEDS ORDERED: MIRALAX *UNIT DOSE* 17GM PACKET PO PRN (19:30)
[2022-10-25] MEDS ORDERED: ACETAMINOPHEN 650MG ER TAB (TYLENOL ARTHRITIS) PO PRN (19:30)
[2022-10-25] MEDS: OMEPRAZOLE 20MG CAP PO SCH (20:41)
[2022-10-25] MEDS: allopurinoL 300 MG TAB PO SCH (20:41)
[2022-10-25] MEDS: LEVEMIR (INSULIN DETEMIR) 1 UNITS/0.01ML SC SCH (20:41)
[2022-10-25] MEDS: SIMVASTATIN 40 MG TAB PO SCH (20:41)
[2022-10-25] MEDS: NS 1,000 ML IV SCH (20:41)
[2022-10-25] MEDS: AMITRIPTYLINE 10MG TABLET PO SCH (20:41)
[2022-10-25] MEDS ORDERED: traZODone 50 MG TAB PO SCH (21:00)
[2022-10-26] VITALS (20 sets, daily range): BP systolic 100–167; BP diastolic 54–85; O2SAT 90–95
[2022-10-26] MEDS ORDERED: DOXYCYCLINE HYCLATE 100 MG in D5W MINI-BAG PLUS 100 ML IV SCH ×2
[2022-10-26 05:28] LABS: BASO % 0.1 % (0.0-1.0); HEMATOCRIT 38.7 % (42.0-52.0); HEMOGLOBIN 11.8 g/dl (13.5-17.5); LYMPH # 0.8 10^3/uL (1.5-5.0); LYMPH % 4.3 % (24.0-44.0); MEAN CORPUSCULAR HEMOGLOBIN 28.4 pg (27.0-33.0); MEAN CORPUSCULAR HGB CONC 30.5 g/dl (32.0-36.5); MEAN CORPUSCULAR VOLUME 93.3 fl (80.0-96.0); MONO # 0.3 10^3/uL (0.0-0.8); MONO % 1.8 % (2.0-8.0); NEUTROPHILS # 16.9 10^3/uL (1.5-8.5); NEUTROPHILS % 93.1 % (36.0-66.0); PLATELET COUNT, AUTOMATED 274 10^3/uL (150-450); RED BLOOD COUNT 4.15 10^6/uL (4.30-6.10); WHITE BLOOD COUNT 18.2 10^3/uL (4.0-10.0)
[2022-10-26 05:57] LABS: CALCIUM LEVEL 8.3 MG/DL (8.3-10.6); CREATININE FOR GFR 1.35 MG/DL (0.70-1.30); GLOMERULAR FILTRATION RATE 53.6 (>35); POTASSIUM SERUM 5.2 MMOL/L (3.5-5.1)
[2022-10-26 06:56] LABS: HEMOGLOBIN A1c 7.4 % (4.0-6.0)
[2022-10-26] MEDS: NS 1,000 ML IV SCH ×2 (07:49→18:03)
[2022-10-26] MEDS: FINASTERIDE 5MG TAB PO SCH (08:22)
[2022-10-26] MEDS: INSULIN LISPRO (NovoLOG) PER UNIT SC SCH ×4 (08:22→20:34)
[2022-10-26] MEDS: DULoxetine 30MG CAPSULE (CYMBALTA) PO SCH (08:22)
[2022-10-26] MEDS: CYANOCOBALAMIN 500 MCG TAB PO SCH (08:23)
[2022-10-26] MEDS: TAMSULOSIN 0.4 MG CAP PO SCH (08:23)
[2022-10-26] MEDS: DIGOXIN 0.125 MG TAB PO SCH (08:23)
[2022-10-26] MEDS: LORATADINE 10 MG TAB PO SCH (08:23)
[2022-10-26] MEDS: ASPIRIN 325 MG TAB PO SCH (08:23)
[2022-10-26] MEDS: ASCORBIC ACID 500 MG TAB PO SCH (08:23)
[2022-10-26] MEDS: ENOXAPARIN 40MG/0.4ML SYRINGE (J1650 PER 10MG) SC SCH (08:24)
[2022-10-26] MEDS: FLUTICASONE PROP 0.05% NASAL SPRAY 16 GM (FLONASE) NARES SCH (08:26)
[2022-10-26] MEDS: IPRATROPIUM 0.5MG/ALBUTEROL 2.5MG INH SOL UD 3ML (DUONEB) NEB SCH ×4 (08:58→20:00)
[2022-10-26 09:05] LABS: CK-MB VALUE MASS 2.5 NG/ML (<3.6); MB/CK RELATIVE INDEX 1.9 (< OR =4)
[2022-10-26] MEDS: DOXYCYCLINE HYCLATE 100MG TABLET PO SCH ×2 (11:23→20:33)
[2022-10-26] MEDS: cefTRIAXone SOD 2 GM in D5W MINI-BAG PLUS 50 ML IV SCH (18:03)
[2022-10-26] MEDS: SIMVASTATIN 40 MG TAB PO SCH (20:33)
[2022-10-26] MEDS: allopurinoL 300 MG TAB PO SCH (20:33)
[2022-10-26] MEDS: AMITRIPTYLINE 10MG TABLET PO SCH (20:33)
[2022-10-26] MEDS: OMEPRAZOLE 20MG CAP PO SCH (20:33)
[2022-10-26] MEDS: LEVEMIR (INSULIN DETEMIR) 1 UNITS/0.01ML SC SCH (20:34)
[2022-10-27] VITALS (17 sets, daily range): BP systolic 127–142; BP diastolic 59–80; O2SAT 92–98
[2022-10-27] MEDS: NS 1,000 ML IV SCH (02:01)
[2022-10-27 05:45] LABS: BASO % 0.2 % (0.0-1.0); EOS % 0.2 % (0.0-3.0); HEMATOCRIT 36.1 % (42.0-52.0); HEMOGLOBIN 10.8 g/dl (13.5-17.5); LYMPH # 1.6 10^3/uL (1.5-5.0); LYMPH % 9.8 % (24.0-44.0); MEAN CORPUSCULAR HEMOGLOBIN 28.7 pg (27.0-33.0); MEAN CORPUSCULAR HGB CONC 29.9 g/dl (32.0-36.5); MONO # 0.9 10^3/uL (0.0-0.8); MONO % 5.6 % (2.0-8.0); NEUTROPHILS # 13.6 10^3/uL (1.5-8.5); NEUTROPHILS % 83.3 % (36.0-66.0); PLATELET COUNT, AUTOMATED 267 10^3/uL (150-450); RED BLOOD COUNT 3.76 10^6/uL (4.30-6.10); WHITE BLOOD COUNT 16.4 10^3/uL (4.0-10.0)
[2022-10-27 06:05] LABS: CK-MB VALUE MASS 5.6 NG/ML (<3.6)
[2022-10-27 06:12] LABS: ALBUMIN 2.5 G/DL (3.2-5.2); ALKALINE PHOSPHATASE 52 U/L (46-116); ALT/SGPT 14 U/L (7.0-40); AST/SGOT 26 U/L (<34); BILIRUBIN,TOTAL < 0.2 MG/DL (0.3-1.2); BLOOD UREA NITROGEN 31 MG/DL (9-23); CALCIUM LEVEL 8.6 MG/DL (8.3-10.6); CARBON DIOXIDE LEVEL 25 MMOL/L (20-31); CHLORIDE LEVEL 109 MMOL/L (98-107); CPK CREATINE PHOSPHOKINASE 480 U/L (46-171); CREATININE FOR GFR 1.21 MG/DL (0.70-1.30); GLOMERULAR FILTRATION RATE > 60.0 (>35); GLUCOSE, FASTING 151 MG/DL (74-106); MB/CK RELATIVE INDEX 1.16 (< OR =4); POTASSIUM SERUM 4.8 MMOL/L (3.5-5.1); SODIUM LEVEL 142 MMOL/L (136-145); TOTAL PROTEIN 5.7 G/DL (5.7-8.2)
[2022-10-27] MEDS: IPRATROPIUM 0.5MG/ALBUTEROL 2.5MG INH SOL UD 3ML (DUONEB) NEB SCH ×4 (08:13→19:33)
[2022-10-27] MEDS: FLUTICASONE PROP 0.05% NASAL SPRAY 16 GM (FLONASE) NARES SCH (09:02)
[2022-10-27] MEDS: FINASTERIDE 5MG TAB PO SCH (09:02)
[2022-10-27] MEDS: ASPIRIN 325 MG TAB PO SCH (09:02)
[2022-10-27] MEDS: INSULIN LISPRO (NovoLOG) PER UNIT SC SCH ×4 (09:02→20:41)
[2022-10-27] MEDS: LORATADINE 10 MG TAB PO SCH (09:03)
[2022-10-27] MEDS: DULoxetine 30MG CAPSULE (CYMBALTA) PO SCH (09:03)
[2022-10-27] MEDS: DOXYCYCLINE HYCLATE 100MG TABLET PO SCH ×2 (09:03→20:49)
[2022-10-27] MEDS: ASCORBIC ACID 500 MG TAB PO SCH (09:03)
[2022-10-27] MEDS: CYANOCOBALAMIN 500 MCG TAB PO SCH (09:03)
[2022-10-27] MEDS: ENOXAPARIN 40MG/0.4ML SYRINGE (J1650 PER 10MG) SC SCH (09:04)
[2022-10-27] MEDS: TAMSULOSIN 0.4 MG CAP PO SCH (09:04)
[2022-10-27] MEDS: DIGOXIN 0.125 MG TAB PO SCH (09:08)
[2022-10-27 12:17] LABS: CK-MB VALUE MASS 5.6 NG/ML (<3.6); MB/CK RELATIVE INDEX 1.07 (< OR =4)
[2022-10-27] MEDS: TORSEMIDE 20 MG TAB PO SCH (12:42)
[2022-10-27] MEDS: SPIRONOLACTONE 25 MG TAB PO SCH (12:42)
[2022-10-27] MEDS: cefTRIAXone SOD 2 GM in D5W MINI-BAG PLUS 50 ML IV SCH (17:40)
[2022-10-27] MEDS: AMITRIPTYLINE 10MG TABLET PO SCH (20:48)
[2022-10-27] MEDS: LEVEMIR (INSULIN DETEMIR) 1 UNITS/0.01ML SC SCH (20:48)
[2022-10-27] MEDS: OMEPRAZOLE 20MG CAP PO SCH (20:49)
[2022-10-27] MEDS: allopurinoL 300 MG TAB PO SCH (20:49)
[2022-10-27] MEDS: SIMVASTATIN 40 MG TAB PO SCH (20:49)
[2022-10-28] VITALS (13 sets, daily range): BP systolic 104–148; BP diastolic 55–78; O2SAT 89–95
[2022-10-28 05:18] LABS: BASO % 0.4 % (0.0-1.0); EOS # 0.1 10^3/uL (0.0-0.5); EOS % 1.3 % (0.0-3.0); HEMATOCRIT 38.3 % (42.0-52.0); HEMOGLOBIN 11.6 g/dl (13.5-17.5); LYMPH # 1.5 10^3/uL (1.5-5.0); LYMPH % 14.3 % (24.0-44.0); MEAN CORPUSCULAR HEMOGLOBIN 28.6 pg (27.0-33.0); MEAN CORPUSCULAR HGB CONC 30.3 g/dl (32.0-36.5); MEAN CORPUSCULAR VOLUME 94.6 fl (80.0-96.0); MONO # 0.7 10^3/uL (0.0-0.8); MONO % 7.3 % (2.0-8.0); NEUTROPHILS # 7.7 10^3/uL (1.5-8.5); NEUTROPHILS % 75.9 % (36.0-66.0); PLATELET COUNT, AUTOMATED 251 10^3/uL (150-450); RED BLOOD COUNT 4.05 10^6/uL (4.30-6.10); WHITE BLOOD COUNT 10.2 10^3/uL (4.0-10.0)
[2022-10-28 05:58] LABS: ALBUMIN 3.1 G/DL (3.2-5.2); ALKALINE PHOSPHATASE 50 U/L (46-116); ALT/SGPT 13 U/L (7.0-40); AST/SGOT 27 U/L (<34); BILIRUBIN,TOTAL 0.2 MG/DL (0.3-1.2); BLOOD UREA NITROGEN 18 MG/DL (9-23); CALCIUM LEVEL 9.1 MG/DL (8.3-10.6); CARBON DIOXIDE LEVEL 25 MMOL/L (20-31); CHLORIDE LEVEL 107 MMOL/L (98-107); CREATININE FOR GFR 1.07 MG/DL (0.70-1.30); GLOMERULAR FILTRATION RATE > 60.0 (>35); GLUCOSE, FASTING 117 MG/DL (74-106); POTASSIUM SERUM 4.1 MMOL/L (3.5-5.1); SODIUM LEVEL 142 MMOL/L (136-145); TOTAL PROTEIN 6.6 G/DL (5.7-8.2)
[2022-10-28] MEDS: IPRATROPIUM 0.5MG/ALBUTEROL 2.5MG INH SOL UD 3ML (DUONEB) NEB SCH ×4 (06:04→19:45)
[2022-10-28] MEDS ORDERED: PILL CUTTER 1 EACH XX PRN (07:15)
[2022-10-28] MEDS: INSULIN LISPRO (NovoLOG) PER UNIT SC SCH ×4 (07:19→20:03)
[2022-10-28] MEDS: ENOXAPARIN 40MG/0.4ML SYRINGE (J1650 PER 10MG) SC SCH (08:03)
[2022-10-28] MEDS: DULoxetine 30MG CAPSULE (CYMBALTA) PO SCH (08:03)
[2022-10-28] MEDS: ASPIRIN 325 MG TAB PO SCH (08:03)
[2022-10-28] MEDS: TORSEMIDE 20 MG TAB PO SCH (08:04)
[2022-10-28] MEDS: SPIRONOLACTONE 25 MG TAB PO SCH (08:04)
[2022-10-28] MEDS: CYANOCOBALAMIN 500 MCG TAB PO SCH (08:04)
[2022-10-28] MEDS: DOXYCYCLINE HYCLATE 100MG TABLET PO SCH ×2 (08:04→20:02)
[2022-10-28] MEDS: DIGOXIN 0.125 MG TAB PO SCH (08:04)
[2022-10-28] MEDS: ASCORBIC ACID 500 MG TAB PO SCH (08:04)
[2022-10-28] MEDS: LORATADINE 10 MG TAB PO SCH (08:04)
[2022-10-28] MEDS: SIMETHICONE 80MG CHEW TAB PO SCH (08:04)
[2022-10-28] MEDS: TAMSULOSIN 0.4 MG CAP PO SCH (08:04)
[2022-10-28] MEDS: FINASTERIDE 5MG TAB PO SCH (08:05)
[2022-10-28] MEDS: FLUTICASONE PROP 0.05% NASAL SPRAY 16 GM (FLONASE) NARES SCH (08:05)
[2022-10-28 08:30] LABS: CK-MB VALUE MASS 3.4 NG/ML (<3.6); MB/CK RELATIVE INDEX 0.96 (< OR =4)
[2022-10-28 17:07] LABS: BODY FLUID CULTURE Not indicated. (.); LEGIONELLA ANTIGEN URINE Negative (Negative); ORGANISM ID Not indicated. (.); SPECIMEN SOURCE Urine (.); URINE STREP PNEUMONIAE ANTIGEN Negative (Negative)
[2022-10-28] MEDS: cefTRIAXone SOD 2 GM in D5W MINI-BAG PLUS 50 ML IV SCH (18:09)
[2022-10-28] MEDS: OMEPRAZOLE 20MG CAP PO SCH (20:00)
[2022-10-28] MEDS: SIMVASTATIN 40 MG TAB PO SCH (20:01)
[2022-10-28] MEDS: AMITRIPTYLINE 10MG TABLET PO SCH (20:01)
[2022-10-28] MEDS: LEVEMIR (INSULIN DETEMIR) 1 UNITS/0.01ML SC SCH (20:01)
[2022-10-28] MEDS: allopurinoL 300 MG TAB PO SCH (20:01)
[2022-10-29 06:00] VITALS: BP 128/78
[2022-10-29 06:32] LABS: BASO % 0.3 % (0.0-1.0); EOS # 0.1 10^3/uL (0.0-0.5); HEMATOCRIT 40.3 % (42.0-52.0); HEMOGLOBIN 12.1 g/dl (13.5-17.5); LYMPH # 1.4 10^3/uL (1.5-5.0); LYMPH % 15.7 % (24.0-44.0); MEAN CORPUSCULAR VOLUME 93.3 fl (80.0-96.0); MONO # 0.8 10^3/uL (0.0-0.8); MONO % 9.2 % (2.0-8.0); NEUTROPHILS # 6.3 10^3/uL (1.5-8.5); NEUTROPHILS % 72.6 % (36.0-66.0); PLATELET COUNT, AUTOMATED 256 10^3/uL (150-450); RED BLOOD COUNT 4.32 10^6/uL (4.30-6.10); WHITE BLOOD COUNT 8.7 10^3/uL (4.0-10.0)
[2022-10-29 07:05] LABS: ALBUMIN 2.8 G/DL (3.2-5.2); ALKALINE PHOSPHATASE 53 U/L (46-116); ALT/SGPT 12 U/L (7.0-40); AST/SGOT 27 U/L (<34); BILIRUBIN,TOTAL 0.3 MG/DL (0.3-1.2); BLOOD UREA NITROGEN 24 MG/DL (9-23); CALCIUM LEVEL 9.2 MG/DL (8.3-10.6); CARBON DIOXIDE LEVEL 27 MMOL/L (20-31); CHLORIDE LEVEL 103 MMOL/L (98-107); CREATININE FOR GFR 1.07 MG/DL (0.70-1.30); GLOMERULAR FILTRATION RATE > 60.0 (>35); GLUCOSE, FASTING 156 MG/DL (74-106); POTASSIUM SERUM 4.3 MMOL/L (3.5-5.1); SODIUM LEVEL 140 MMOL/L (136-145); TOTAL PROTEIN 6.3 G/DL (5.7-8.2)
[2022-10-29] MEDS: IPRATROPIUM 0.5MG/ALBUTEROL 2.5MG INH SOL UD 3ML (DUONEB) NEB SCH (07:11)
[2022-10-29] MEDS ORDERED: PROB1CAP10 PO (07:35)
[2022-10-29] MEDS ORDERED: CEFU50TA PO (07:35)
[2022-10-29] MEDS ORDERED: DOXY100T PO (07:35)
[2022-10-29] MEDS: ENOXAPARIN 40MG/0.4ML SYRINGE (J1650 PER 10MG) SC SCH (08:11)
[2022-10-29] MEDS: DIGOXIN 0.125 MG TAB PO SCH (08:23)
[2022-10-29] MEDS: FLUTICASONE PROP 0.05% NASAL SPRAY 16 GM (FLONASE) NARES SCH (08:23)
[2022-10-29] MEDS: INSULIN LISPRO (NovoLOG) PER UNIT SC SCH (08:23)
[2022-10-29] MEDS: FINASTERIDE 5MG TAB PO SCH (08:23)
[2022-10-29] MEDS: LORATADINE 10 MG TAB PO SCH (08:24)
[2022-10-29] MEDS: ASCORBIC ACID 500 MG TAB PO SCH (08:24)
[2022-10-29] MEDS: DULoxetine 30MG CAPSULE (CYMBALTA) PO SCH (08:24)
[2022-10-29] MEDS: SPIRONOLACTONE 25 MG TAB PO SCH (08:24)
[2022-10-29] MEDS: TORSEMIDE 20 MG TAB PO SCH (08:24)
[2022-10-29] MEDS: ASPIRIN 325 MG TAB PO SCH (08:24)
[2022-10-29] MEDS: SIMETHICONE 80MG CHEW TAB PO SCH (08:24)
[2022-10-29] MEDS: TAMSULOSIN 0.4 MG CAP PO SCH (08:24)
[2022-10-29] MEDS: CYANOCOBALAMIN 500 MCG TAB PO SCH (08:24)
[2022-10-29] MEDS: DOXYCYCLINE HYCLATE 100MG TABLET PO SCH (08:24)
== END 2022-10-29 11:15 | DRG 871 ==
LOC: M ED 10:37 → EDBD 10:37 → M ED INP 13:39 → M PCU 16:04 → M MSPAV 10-28 16:11
PROVIDERS: ADMIT General Practice; ATTEND Internal Medicine
DX: A40.9 Streptococcal sepsis, unspecified (principal); J96.01 Acute respiratory failure with hypoxia; J18.9 Pneumonia, unspecified organism; I13.0 Hypertensive heart and chronic kidney disease with heart failure and stage 1 through stage 4 chronic kidney disease, or unspecified chronic kidney disease; N17.9 Acute kidney failure, unspecified; I5A Non-ischemic myocardial injury (non-traumatic); I50.30 Unspecified diastolic (congestive) heart failure; N18.30 Chronic kidney disease, stage 3 unspecified; I25.10 Atherosclerotic heart disease of native coronary artery without angina pectoris; E11.21 Type 2 diabetes mellitus with diabetic nephropathy; M10.9 Gout, unspecified; I44.30 Unspecified atrioventricular block; E78.00 Pure hypercholesterolemia, unspecified; Z95.0 Presence of cardiac pacemaker; G47.33 Obstructive sleep apnea (adult) (pediatric); Z79.82 Long term (current) use of aspirin; Z79.899 Other long term (current) drug therapy; Z79.4 Long term (current) use of insulin; Z88.8 Allergy status to other drugs, medicaments and biological substances; Z66 Do not resuscitate

== ENCOUNTER → 2022-11-02 | Outpatient (REF) | payer MEDICARE ==
[~2022-11-02] MED LIST changes: +ACET650T15 PO; +ALLO300T2 PO; +AMIT10TA7 PO; +ASPI325T57 PO; +B-12100010 PO; +C 50TAB PO; +CEFU50TA PO; +DIGO0.123 PO; +DOXY100T PO; +FLUT1INH INH; +FLUTISP NARES; +HUMA100I5 SC; +JARD1TAB PO; +LORA-674 PO; +NITR4TASL SL; +OZEM2INJ SC; +PROA1AER2 INH; +PROB1CAP10 PO; +SIME1CAP PO; +TORS20TA2 PO; +VITA100054 PO; +ZOCO80TA PO
== END ==
PROVIDERS: ATTEND Internal Medicine Hematology
DX: E11.29 Type 2 diabetes mellitus with other diabetic kidney complication (principal); Z53.8 Procedure and treatment not carried out for other reasons

== ENCOUNTER → 2022-11-03 | Outpatient (CLI) | payer MEDICARE ==
[2022-11-03 18:38] LABS: BASO # 0.1 10^3/uL (0.0-0.2); BASO % 0.5 % (0.0-1.0); EOS # 0.2 10^3/uL (0.0-0.5); EOS % 1.5 % (0.0-3.0); HEMATOCRIT 44.5 % (42.0-52.0); HEMOGLOBIN 13.2 g/dl (13.5-17.5); LYMPH # 1.7 10^3/uL (1.5-5.0); LYMPH % 17.4 % (24.0-44.0); MEAN CORPUSCULAR HEMOGLOBIN 28.1 pg (27.0-33.0); MEAN CORPUSCULAR HGB CONC 29.7 g/dl (32.0-36.5); MEAN CORPUSCULAR VOLUME 94.7 fl (80.0-96.0); MONO # 0.9 10^3/uL (0.0-0.8); MONO % 9.4 % (2.0-8.0); NEUTROPHILS # 6.9 10^3/uL (1.5-8.5); NEUTROPHILS % 69.9 % (36.0-66.0); PLATELET COUNT, AUTOMATED 300 10^3/uL (150-450); WHITE BLOOD COUNT 9.9 10^3/uL (4.0-10.0)
[2022-11-03 18:57] LABS: C REACTIVE PROTEIN QUANTITATIV 2.5 MG/DL (<1.0)
[2022-11-03 19:02] LABS: ALBUMIN 3.3 G/DL (3.2-5.2); BILIRUBIN,TOTAL 0.3 MG/DL (0.3-1.2); CREATININE FOR GFR 1.42 MG/DL (0.70-1.30); GLOMERULAR FILTRATION RATE 50.6 (>35); POTASSIUM SERUM 4.8 MMOL/L (3.5-5.1); TOTAL PROTEIN 7.3 G/DL (5.7-8.2)
[2022-11-03 19:06] LABS: URIC ACID 5.5 MG/DL (3.7-9.2)
[2022-11-03 19:27] LABS: HEMOGLOBIN A1c 7.5 % (4.0-6.0)
== END ==
LOC: M PLAIMG 15:21
PROVIDERS: ATTEND Physician Assistant Medical
DX: J18.9 Pneumonia, unspecified organism (principal); M10.9 Gout, unspecified; N18.31 Chronic kidney disease, stage 3a; E11.22 Type 2 diabetes mellitus with diabetic chronic kidney disease; R77.8 Other specified abnormalities of plasma proteins; J98.11 Atelectasis

== ENCOUNTER → 2022-12-08 | Outpatient (CLI) | payer MEDICARE | LOC: M PLAIMG 16:01 | PROVIDERS: ATTEND Physician Assistant | DX: R06.02 Shortness of breath (principal); R79.81 Abnormal blood-gas level ==

== ENCOUNTER → 2023-02-02 | Outpatient (REF) | payer MEDICARE ==
[~2023-02-02] MED LIST changes: +FLUT50SP17 NARES; -FLUTISP NARES
[2023-02-02 11:17] LABS: HEMOGLOBIN 11.1 g/dl (13.5-17.5); MEAN CORPUSCULAR HEMOGLOBIN 28.4 pg (27.0-33.0); MEAN CORPUSCULAR HGB CONC 30.8 g/dl (32.0-36.5); MEAN CORPUSCULAR VOLUME 92.1 fl (80.0-96.0); PLATELET COUNT, AUTOMATED 182 10^3/uL (150-450); RED BLOOD COUNT 3.91 10^6/uL (4.30-6.10); WHITE BLOOD COUNT 7.4 10^3/uL (4.0-10.0)
[2023-02-02 11:30] LABS: HEMOGLOBIN A1c 7.7 % (4.0-6.0)
[2023-02-02 11:46] LABS: TOTAL 25(OH) VITAMIN D 42.4 NG/ML (20.0-100.0); VITAMIN B12 LEVEL 711 PG/ML (211-911)
[2023-02-02 11:48] LABS: FREE T4 0.71 NG/DL (0.89-1.76)
[2023-02-02 11:51] LABS: ALBUMIN 2.9 G/DL (3.2-5.2); ALKALINE PHOSPHATASE 62 U/L (46-116); ALT/SGPT < 9 U/L (7.0-40); AST/SGOT 9 U/L (<34); BILIRUBIN,TOTAL 0.3 MG/DL (0.3-1.2); BLOOD UREA NITROGEN 16 MG/DL (9-23); CALCIUM LEVEL 8.3 MG/DL (8.3-10.6); CARBON DIOXIDE LEVEL 28 MMOL/L (20-31); CHLORIDE LEVEL 107 MMOL/L (98-107); CHOLESTEROL LEVEL 77 MG/DL (<200); CHOLESTEROL RISK RATIO 2.73 (<5); CREATININE FOR GFR 0.98 MG/DL (0.70-1.30); GLOMERULAR FILTRATION RATE > 60.0 (>35); GLUCOSE, FASTING 304 MG/DL (74-106); HDL CHOLESTEROL 28.2 MG/DL (>40); LDL CHOLESTEROL 29.6 MG/DL (<100); NON-HDL-C 48.8 MG/DL; POTASSIUM SERUM 4.5 MMOL/L (3.5-5.1); SODIUM LEVEL 141 MMOL/L (136-145); TOTAL PROTEIN 5.6 G/DL (5.7-8.2); TRIGLYCERIDES LEVEL 96 MG/DL (<150)
== END ==
PROVIDERS: ATTEND Internal Medicine Hematology
DX: E11.29 Type 2 diabetes mellitus with other diabetic kidney complication (principal); Z79.899 Other long term (current) drug therapy

== ENCOUNTER → 2023-04-05 | Outpatient (CLI) | payer MEDICARE | LOC: M WHC 10:18 | PROVIDERS: ATTEND Internal Medicine Hematology | DX: N64.4 Mastodynia (principal) | CPT/HCPCS: 77066; G0279 ==

== ENCOUNTER 2023-08-11 09:38 | Inpatient (IN) | payer MEDICARE ==
[~2023-08-11] VITALS: Ht 172.7 cm; Wt 95.4 kg
[~2023-08-11 09:38] MED LIST changes: -CEFD300C41 PO; +CEFD300C42 PO; +LORA-1041 PO; -LORA-674 PO
[2023-08-11] MEDS ORDERED: MED REC IN PROGRESS XX SCH (10:05)
[2023-08-11] MEDS ORDERED: MED REC CURRENTLY UNOBTAINABLE XX SCH (11:00)
[2023-08-11 11:55] LABS: HEMATOCRIT 47.9 % (42.0-52.0); HEMOGLOBIN 15.1 g/dl (13.5-17.5); MEAN CORPUSCULAR HEMOGLOBIN 30.6 pg (27.0-33.0); MEAN CORPUSCULAR HGB CONC 31.5 g/dl (32.0-36.5); PLATELET COUNT, AUTOMATED 141 10^3/uL (150-450); RED BLOOD COUNT 4.94 10^6/uL (4.30-6.10); WHITE BLOOD COUNT 7.5 10^3/uL (4.0-10.0)
[2023-08-11 12:15] LABS: AMPHETAMINES LEVEL URINE NEGATIVE (NEGATIVE); BARBITURATES URINE NEGATIVE (NEGATIVE); BENZODIAZEPINES URINE NEGATIVE (NEGATIVE); CANNABINOIDS URINE NEGATIVE (NEGATIVE); COCAINE METABOLITE URINE NEGATIVE (NEGATIVE); METHADONE URINE NEGATIVE (NEGATIVE); OPIATES URINE NEGATIVE (NEGATIVE); PHENCYCLIDINE URINE NEGATIVE (NEGATIVE)
[2023-08-11 12:17] LABS: ETHYL ALCOHOL (ETHANOL) 0.007 % (0.000-0.010)
[2023-08-11 12:18] LABS: ACETAMINOPHEN LEVEL 5.6 UG/ML (10.0-20.0); SALICYLATE LEVEL < 3.0 MG/DL (<30)
[2023-08-11 12:19] LABS: ALBUMIN 3.9 G/DL (3.2-5.2); ALKALINE PHOSPHATASE 64 U/L (46-116); ALT/SGPT 14 U/L (7.0-40); AST/SGOT 13 U/L (<34); BILIRUBIN,DIRECT 0.2 MG/DL (<0.4); BILIRUBIN,TOTAL 0.6 MG/DL (0.3-1.2); BLOOD UREA NITROGEN 30 MG/DL (9-23); CALCIUM LEVEL 9.2 MG/DL (8.3-10.6); CARBON DIOXIDE LEVEL 28 MMOL/L (20-31); CHLORIDE LEVEL 106 MMOL/L (98-107); GLOMERULAR FILTRATION RATE > 60.0 (>35); GLUCOSE, FASTING 190 MG/DL (74-106); SODIUM LEVEL 140 MMOL/L (136-145); TOTAL PROTEIN 6.7 G/DL (5.7-8.2)
[2023-08-11 12:21] LABS: THYROID STIMULATING HORMONE 1.572 uIU/ML (0.55-4.78)
[2023-08-11] MEDS ORDERED: TORS10TA3 PO (13:46)
[2023-08-11] MEDS ORDERED: RISATAB3 PO (13:46)
[2023-08-11] MEDS ORDERED: INSU100I38 SQ (13:46)
[2023-08-11] MEDS ORDERED: VIT1CAPS PO (13:46)
[2023-08-11] MEDS ORDERED: KETO2SHA8 TOP (13:46)
[2023-08-11] MEDS ORDERED: HOME MED LIST COMPLETE! XX SCH (14:00)
[2023-08-11] MEDS ORDERED: SIMETHICONE 80MG CHEW TAB PO PRN (19:50)
[2023-08-11] MEDS ORDERED: ACETAMINOPHEN TAB 650MG DOSE (2X325MG) PO PRN (19:50)
[2023-08-11] MEDS ORDERED: MIRALAX *UNIT DOSE* 17GM PACKET PO PRN (19:50)
[2023-08-11] MEDS ORDERED: ALBUTEROL 90 MCG/ACT 8GM HFA INHALER INH PRN (19:50)
[2023-08-11] MEDS ORDERED: NITROGLYCERIN 0.4MG SUBL TABLET SL PRN (19:50)
[2023-08-11] MEDS ORDERED: PILL CUTTER 1 EACH XX PRN (20:25)
[2023-08-11] MEDS: INSULIN LISPRO (NovoLOG) PER UNIT SC SCH (20:53)
[2023-08-11] MEDS ORDERED: SIMVASTATIN 40 MG TAB PO SCH (21:00)
[2023-08-11] MEDS ORDERED: allopurinoL 300 MG TAB PO SCH (21:00)
[2023-08-11] MEDS: LEVEMIR (INSULIN DETEMIR) 1 UNITS/0.01ML SC SCH (21:03)
[2023-08-11] MEDS: traZODone 50 MG TAB PO SCH (21:04)
[2023-08-11] MEDS: OMEPRAZOLE 20MG CAP PO SCH (21:04)
[2023-08-12] MEDS ORDERED: LOSARTAN 25 MG TAB PO SCH (09:00)
[2023-08-12] MEDS ORDERED: ASPIRIN 325 MG TAB PO SCH (09:00)
[2023-08-12] MEDS ORDERED: TAMSULOSIN 0.4 MG CAP PO SCH (09:00)
[2023-08-12] MEDS ORDERED: SPIRONOLACTONE 25 MG TAB PO SCH (09:00)
[2023-08-12] MEDS ORDERED: CYANOCOBALAMIN 500 MCG TAB PO SCH (09:00)
[2023-08-12] MEDS ORDERED: DULoxetine 30MG CAPSULE (CYMBALTA) PO SCH (09:00)
[2023-08-12] MEDS ORDERED: buPROPion **XL** TABLET 150MG (WELLBUTRIN XL) PO SCH (09:00)
[2023-08-12] MEDS ORDERED: FINASTERIDE 5MG TAB PO SCH (09:00)
[2023-08-12] MEDS ORDERED: TORSEMIDE 10 MG TABLET PO SCH (09:00)
[2023-08-12] MEDS ORDERED: VITAMIN D 1,000 INTERNATIONAL UNITS TABLET PO SCH (09:00)
[2023-08-12] MEDS: INSULIN LISPRO (NovoLOG) PER UNIT SC SCH ×5 (09:01→21:00)
[2023-08-12] MEDS: LACTOBACILLUS ACIDOPHILUS CAP (BACID) PO SCH ×2 (09:01→17:18)
[2023-08-12] MEDS: LEVEMIR (INSULIN DETEMIR) 1 UNITS/0.01ML SC SCH ×2 (09:20→21:00)
[2023-08-12] MEDS ORDERED: MOM 30ML SUSPENSION UDC PO PRN ×2 (12:45→21:35)
[2023-08-12] MEDS ORDERED: MAALOX 30 ML SUSP *UDC PO PRN ×2 (12:45→21:35)
[2023-08-12] MEDS ORDERED: IBUPROFEN 400MG TAB PO PRN ×2 (12:45→21:35)
[2023-08-12] MEDS ORDERED: ACETAMINOPHEN TAB 650MG DOSE (2X325MG) PO PRN ×2 (12:45→21:35)
[2023-08-12] MEDS ORDERED: diphenhydrAMINE 25MG CAP PO PRN ×2 (12:45→21:35)
[2023-08-12] MEDS ORDERED: traZODone 50 MG TAB PO PRN (12:45)
[2023-08-12] MEDS: traZODone 50 MG TAB PO SCH (20:59)
[2023-08-12] MEDS: OMEPRAZOLE 20MG CAP PO SCH ×2 (20:59→21:00)
[2023-08-12] MEDS: DULoxetine 30MG CAPSULE (CYMBALTA) PO SCH (22:08)
[2023-08-12] MEDS ORDERED: MIRALAX *UNIT DOSE* 17GM PACKET PO PRN (22:25)
[2023-08-12] MEDS ORDERED: ALBUTEROL 90 MCG/ACT 8GM HFA INHALER INH PRN (22:25)
[2023-08-12] MEDS ORDERED: NITROGLYCERIN 0.4MG SUBL TABLET SL PRN (22:25)
[2023-08-12] MEDS ORDERED: DEXTROSE 50% 50ML SYRINGE IV PRN (22:35)
[2023-08-12] MEDS ORDERED: GLUCAGON INJ 1MG VIAL SC PRN (22:35)
[2023-08-12] MEDS ORDERED: GLUCOSE 4GM CHEW TABLET PO PRN (22:35)
[2023-08-12] MEDS ORDERED: PILL CUTTER 1 EACH XX PRN (22:40)
[2023-08-12] MEDS: allopurinoL 300 MG TAB PO SCH (23:00)
[2023-08-12] MEDS: SIMVASTATIN 40 MG TAB PO SCH (23:00)
[2023-08-13 06:50] VITALS: BP 110/63; TEMP 97.3; O2SAT 94
[2023-08-13] MEDS: INSULIN LISPRO (NovoLOG) PER UNIT SC SCH ×4 (07:22→20:27)
[2023-08-13] MEDS ORDERED: LEVEMIR (INSULIN DETEMIR) 1 UNITS/0.01ML SC SCH (09:00)
[2023-08-13] MEDS: TAMSULOSIN 0.4 MG CAP PO SCH (09:55)
[2023-08-13] MEDS: TORSEMIDE 10 MG TABLET PO SCH (09:55)
[2023-08-13] MEDS: LACTOBACILLUS ACIDOPHILUS CAP (BACID) PO SCH ×2 (09:56→20:26)
[2023-08-13] MEDS: ASPIRIN 325 MG TAB PO SCH (09:56)
[2023-08-13] MEDS: LOSARTAN 25 MG TAB PO SCH (09:56)
[2023-08-13] MEDS: FINASTERIDE 5MG TAB PO SCH (09:57)
[2023-08-13] MEDS: SPIRONOLACTONE 25 MG TAB PO SCH (09:57)
[2023-08-13] MEDS: ENOXAPARIN 40MG/0.4ML SYRINGE (J1650 PER 10MG) SC SCH (13:19)
[2023-08-13] MEDS: LEVEMIR (INSULIN DETEMIR) 1 UNITS/0.01ML SC SCH ×2 (14:09→20:25)
[2023-08-13 16:25] VITALS: BP 120/66; TEMP 98.1; O2SAT 94
[2023-08-13] MEDS: traZODone 50 MG TAB PO PRN (20:25)
[2023-08-13] MEDS: OMEPRAZOLE 20MG CAP PO SCH (20:25)
[2023-08-13] MEDS: SIMVASTATIN 40 MG TAB PO SCH (20:26)
[2023-08-13] MEDS: DULoxetine 30MG CAPSULE (CYMBALTA) PO SCH (20:26)
[2023-08-13] MEDS: allopurinoL 300 MG TAB PO SCH (20:26)
[2023-08-13] MEDS ORDERED: SIMVASTATIN 40 MG TAB PO SCH (21:00)
[2023-08-13] MEDS ORDERED: allopurinoL 300 MG TAB PO SCH (21:00)
[2023-08-14 06:32] VITALS: BP 142/74; TEMP 98.4; O2SAT 95
[2023-08-14] MEDS: INSULIN LISPRO (NovoLOG) PER UNIT SC SCH ×4 (06:34→20:39)
[2023-08-14] MEDS: LOSARTAN 25 MG TAB PO SCH (08:47)
[2023-08-14] MEDS: SPIRONOLACTONE 25 MG TAB PO SCH (08:47)
[2023-08-14] MEDS: LACTOBACILLUS ACIDOPHILUS CAP (BACID) PO SCH ×2 (08:47→20:34)
[2023-08-14] MEDS: TAMSULOSIN 0.4 MG CAP PO SCH (08:48)
[2023-08-14] MEDS: FINASTERIDE 5MG TAB PO SCH (08:48)
[2023-08-14] MEDS: TORSEMIDE 10 MG TABLET PO SCH (08:48)
[2023-08-14] MEDS: ASPIRIN 325 MG TAB PO SCH (08:48)
[2023-08-14] MEDS: ENOXAPARIN 40MG/0.4ML SYRINGE (J1650 PER 10MG) SC SCH (08:48)
[2023-08-14] MEDS: LEVEMIR (INSULIN DETEMIR) 1 UNITS/0.01ML SC SCH ×2 (08:49→20:39)
[2023-08-14 16:04] VITALS: BP 110/70; TEMP 97.6; O2SAT 94
[2023-08-14] MEDS: allopurinoL 300 MG TAB PO SCH (20:33)
[2023-08-14] MEDS: traZODone 50 MG TAB PO PRN (20:33)
[2023-08-14] MEDS: DULoxetine 30MG CAPSULE (CYMBALTA) PO SCH (20:34)
[2023-08-14] MEDS: SIMVASTATIN 40 MG TAB PO SCH (20:34)
[2023-08-14] MEDS: OMEPRAZOLE 20MG CAP PO SCH (20:34)
[2023-08-15 06:08] VITALS: BP 133/70; TEMP 97.8; O2SAT 92
[2023-08-15 06:47] LABS: HEMATOCRIT 47.7 % (42.0-52.0); HEMOGLOBIN 15.1 g/dl (13.5-17.5); MEAN CORPUSCULAR HEMOGLOBIN 30.6 pg (27.0-33.0); MEAN CORPUSCULAR HGB CONC 31.7 g/dl (32.0-36.5); MEAN CORPUSCULAR VOLUME 96.6 fl (80.0-96.0); PLATELET COUNT, AUTOMATED 144 10^3/uL (150-450); RED BLOOD COUNT 4.94 10^6/uL (4.30-6.10); WHITE BLOOD COUNT 9.5 10^3/uL (4.0-10.0)
[2023-08-15] MEDS: INSULIN LISPRO (NovoLOG) PER UNIT SC SCH ×4 (06:56→20:44)
[2023-08-15 09:46] VITALS: BP 132/78
[2023-08-15] MEDS: FINASTERIDE 5MG TAB PO SCH (09:47)
[2023-08-15] MEDS: ASPIRIN 325 MG TAB PO SCH (09:47)
[2023-08-15] MEDS: TAMSULOSIN 0.4 MG CAP PO SCH (09:47)
[2023-08-15] MEDS: TORSEMIDE 10 MG TABLET PO SCH (09:47)
[2023-08-15] MEDS: LACTOBACILLUS ACIDOPHILUS CAP (BACID) PO SCH ×2 (09:48→20:43)
[2023-08-15] MEDS: LOSARTAN 25 MG TAB PO SCH (09:48)
[2023-08-15] MEDS: SPIRONOLACTONE 25 MG TAB PO SCH (09:48)
[2023-08-15] MEDS: LEVEMIR (INSULIN DETEMIR) 1 UNITS/0.01ML SC SCH ×2 (09:50→20:44)
[2023-08-15] MEDS: ENOXAPARIN 40MG/0.4ML SYRINGE (J1650 PER 10MG) SC SCH (09:50)
[2023-08-15] MEDS: DULoxetine 30MG CAPSULE (CYMBALTA) PO SCH ×2 (12:08→20:43)
[2023-08-15] MEDS: DIVALPROEX 125 MG TAB PO SCH ×2 (12:09→20:43)
[2023-08-15 18:32] VITALS: BP 132/70; TEMP 99.3; O2SAT 94
[2023-08-15] MEDS: SIMVASTATIN 40 MG TAB PO SCH (20:43)
[2023-08-15] MEDS: OMEPRAZOLE 20MG CAP PO SCH (20:43)
[2023-08-15] MEDS: allopurinoL 300 MG TAB PO SCH (20:44)
[2023-08-16 06:06] VITALS: BP 134/71; TEMP 96.9; O2SAT 95
[2023-08-16] MEDS: INSULIN LISPRO (NovoLOG) PER UNIT SC SCH ×4 (07:02→20:37)
[2023-08-16] MEDS: FINASTERIDE 5MG TAB PO SCH (09:58)
[2023-08-16] MEDS: SPIRONOLACTONE 25 MG TAB PO SCH (09:59)
[2023-08-16] MEDS: ASPIRIN 325 MG TAB PO SCH (10:00)
[2023-08-16] MEDS: TORSEMIDE 10 MG TABLET PO SCH (10:00)
[2023-08-16] MEDS: TAMSULOSIN 0.4 MG CAP PO SCH (10:00)
[2023-08-16] MEDS: LOSARTAN 25 MG TAB PO SCH (10:01)
[2023-08-16] MEDS: ENOXAPARIN 40MG/0.4ML SYRINGE (J1650 PER 10MG) SC SCH (10:03)
[2023-08-16] MEDS: DULoxetine 30MG CAPSULE (CYMBALTA) PO SCH ×2 (10:03→20:34)
[2023-08-16] MEDS: LACTOBACILLUS ACIDOPHILUS CAP (BACID) PO SCH ×2 (10:03→20:34)
[2023-08-16] MEDS: LEVEMIR (INSULIN DETEMIR) 1 UNITS/0.01ML SC SCH ×2 (10:15→20:37)
[2023-08-16 19:08] VITALS: BP 131/60; TEMP 98; O2SAT 96
[2023-08-16] MEDS: allopurinoL 300 MG TAB PO SCH (20:34)
[2023-08-16] MEDS: SIMVASTATIN 40 MG TAB PO SCH (20:34)
[2023-08-16] MEDS: OMEPRAZOLE 20MG CAP PO SCH (20:34)
[2023-08-16] MEDS: traZODone 50 MG TAB PO PRN (20:35)
[2023-08-17 06:23] VITALS: BP 132/75; TEMP 97; O2SAT 96
[2023-08-17] MEDS: INSULIN LISPRO (NovoLOG) PER UNIT SC SCH (06:59)
[2023-08-17] MEDS ORDERED: TRAZ-252 PO (08:58)
[2023-08-17] MEDS: DULoxetine 30MG CAPSULE (CYMBALTA) PO SCH (09:03)
[2023-08-17] MEDS: FINASTERIDE 5MG TAB PO SCH (09:03)
[2023-08-17] MEDS: SPIRONOLACTONE 25 MG TAB PO SCH (09:03)
[2023-08-17] MEDS: TAMSULOSIN 0.4 MG CAP PO SCH (09:03)
[2023-08-17] MEDS: ASPIRIN 325 MG TAB PO SCH (09:03)
[2023-08-17] MEDS: LACTOBACILLUS ACIDOPHILUS CAP (BACID) PO SCH (09:03)
[2023-08-17 09:04] VITALS: BP 132/75
[2023-08-17] MEDS: LOSARTAN 25 MG TAB PO SCH (09:04)
[2023-08-17] MEDS: LEVEMIR (INSULIN DETEMIR) 1 UNITS/0.01ML SC SCH (09:04)
[2023-08-17] MEDS: TORSEMIDE 10 MG TABLET PO SCH (09:04)
[2023-08-17] MEDS: ENOXAPARIN 40MG/0.4ML SYRINGE (J1650 PER 10MG) SC SCH (09:05)
[2023-08-17] MEDS ORDERED: CYMB1CAP5 PO (10:58)
[2023-08-17] MEDS ORDERED: DULoxetine 30MG CAPSULE (CYMBALTA) PO ONE (11:00)
[2023-08-17] MEDS ORDERED: CYMB60CA4 PO (11:30)
[2023-08-18] MEDS ORDERED: DULoxetine 30MG CAPSULE (CYMBALTA) PO SCH (09:00)
== END 2023-08-17 11:25 | disposition home or self-care (01) | DRG 885 ==
LOC: EDBD 09:38 → M ED 09:38 → M ED INP 08-12 12:43 → M PSY 08-12 16:08
PROVIDERS: ADMIT Student in an Organized Health Care Education/Training Program; ATTEND Student in an Organized Health Care Education/Training Program
DX: F33.9 Major depressive disorder, recurrent, unspecified (principal); R45.851 Suicidal ideations; I50.32 Chronic diastolic (congestive) heart failure; Z88.8 Allergy status to other drugs, medicaments and biological substances; Z79.899 Other long term (current) drug therapy; Z79.82 Long term (current) use of aspirin; I25.10 Atherosclerotic heart disease of native coronary artery without angina pectoris; Z95.2 Presence of prosthetic heart valve; E11.9 Type 2 diabetes mellitus without complications; M10.9 Gout, unspecified; E78.00 Pure hypercholesterolemia, unspecified; G47.33 Obstructive sleep apnea (adult) (pediatric); Z95.0 Presence of cardiac pacemaker; I65.21 Occlusion and stenosis of right carotid artery; N40.0 Benign prostatic hyperplasia without lower urinary tract symptoms; K21.9 Gastro-esophageal reflux disease without esophagitis; Z79.4 Long term (current) use of insulin; F03.90 Unspecified dementia, unspecified severity, without behavioral disturbance, psychotic disturbance, mood disturbance, and anxiety

== ENCOUNTER → 2023-12-07 | Outpatient (CLI) | payer MEDICARE ==
[~2023-12-07] MED LIST changes: +CEFD1CAP9 PO; -CEFD300C42 PO; +CYMB1CAP5 PO; +CYMB60CA4 PO; -FLUT50SP17 NARES; +FLUTISP NARES; +INSU100I38 SQ; +KETO2SHA8 TOP; +RISATAB3 PO; +VIT1CAPS PO
[2023-12-07 18:27] LABS: HEMOGLOBIN A1c 8.1 % (4.0-6.0)
[2023-12-07 18:33] LABS: HEMATOCRIT 52.1 % (42.0-52.0); HEMOGLOBIN 16.3 g/dl (13.5-17.5); MEAN CORPUSCULAR HGB CONC 31.3 g/dl (32.0-36.5); MEAN CORPUSCULAR VOLUME 95.9 fl (80.0-96.0); PLATELET COUNT, AUTOMATED 148 10^3/uL (150-450); RED BLOOD COUNT 5.43 10^6/uL (4.30-6.10)
[2023-12-07 18:39] LABS: C REACTIVE PROTEIN QUANTITATIV < 0.40 MG/DL (<1.0)
[2023-12-07 18:40] LABS: ALBUMIN 3.9 G/DL (3.2-5.2); ALKALINE PHOSPHATASE 69 U/L (46-116); ALT/SGPT 12 U/L (7.0-40); AST/SGOT 11 U/L (<34); BILIRUBIN,TOTAL 0.4 MG/DL (0.3-1.2); BLOOD UREA NITROGEN 22 MG/DL (9-23); CALCIUM LEVEL 9.3 MG/DL (8.3-10.6); CARBON DIOXIDE LEVEL 27 MMOL/L (20-31); CHLORIDE LEVEL 107 MMOL/L (98-107); CHOLESTEROL LEVEL 119 MG/DL (<200); CHOLESTEROL RISK RATIO 2.52 (<5); CREATININE FOR GFR 1.13 MG/DL (0.70-1.30); GLOMERULAR FILTRATION RATE > 60.0 (>35); GLUCOSE, FASTING 137 MG/DL (74-106); HDL CHOLESTEROL 47.1 MG/DL (>40); LDL CHOLESTEROL 51.1 MG/DL (<100); NON-HDL-C 71.9 MG/DL; POTASSIUM SERUM 4.5 MMOL/L (3.5-5.1); SODIUM LEVEL 141 MMOL/L (136-145); TOTAL PROTEIN 6.9 G/DL (5.7-8.2); TRIGLYCERIDES LEVEL 104 MG/DL (<150)
[2023-12-07 18:42] LABS: FREE T4 0.89 NG/DL (0.89-1.76); THYROID STIMULATING HORMONE 3.336 uIU/ML (0.55-4.78)
[2023-12-07 18:43] LABS: VITAMIN B12 LEVEL 1412 PG/ML (211-911)
[2023-12-07 18:47] LABS: TOTAL 25(OH) VITAMIN D 37.7 NG/ML (20.0-100.0)
== END ==
LOC: M PLAIMG 16:50
PROVIDERS: ATTEND Internal Medicine Hematology
DX: I25.10 Atherosclerotic heart disease of native coronary artery without angina pectoris (principal); Z79.899 Other long term (current) drug therapy

== ENCOUNTER 2024-01-08 14:58 | Emergency (ER) | payer MEDICARE ==
[~2024-01-08] VITALS: Ht 172.7 cm; Wt 103.3 kg
[2024-01-08] MEDS ORDERED: ARIP1TAB4 PO (15:32)
[2024-01-08] MEDS ORDERED: CYMB1CAP5 PO (15:32)
[2024-01-08 15:34] LABS: VENOUS BASE EXCESS -1.2 (-2.0-2.0); VENOUS HCO3 25.4 MMOL/L (23.0-27.0); VENOUS O2 SATURATION 71.5 % (60.0-80.0); VENOUS PARTIAL PRESSURE CO2 49.3 mmHg (38.0-50.0); VENOUS PARTIAL PRESSURE O2 40.1 mmHg (30.0-50.0); VENOUS PH 7.329 UNITS (7.330-7.430); VENOUS STANDARD HCO3 22.8 MMOL/L; VENOUS TOTAL CO2 26.9 MMOL/L (24.0-28.0)
[2024-01-08 15:36] LABS: BASO % 0.3 % (0.0-1.0); EOS # 0.1 10^3/uL (0.0-0.5); EOS % 1.2 % (0.0-3.0); HEMOGLOBIN 14.5 g/dl (13.5-17.5); LYMPH # 1.6 10^3/uL (1.5-5.0); LYMPH % 15.5 % (24.0-44.0); MEAN CORPUSCULAR HEMOGLOBIN 30.1 pg (27.0-33.0); MEAN CORPUSCULAR HGB CONC 31.5 g/dl (32.0-36.5); MEAN CORPUSCULAR VOLUME 95.6 fl (80.0-96.0); MONO # 1.1 10^3/uL (0.0-0.8); MONO % 10.2 % (2.0-8.0); NEUTROPHILS # 7.5 10^3/uL (1.5-8.5); NEUTROPHILS % 72.4 % (36.0-66.0); PLATELET COUNT, AUTOMATED 124 10^3/uL (150-450); RED BLOOD COUNT 4.81 10^6/uL (4.30-6.10); WHITE BLOOD COUNT 10.3 10^3/uL (4.0-10.0)
[2024-01-08 15:47] LABS: INR 1.08; PARTIAL THROMBOPLASTIN TIME 31.9 SECONDS (24.8-34.2); PROTHROMBIN TIME 13.7 SECONDS (12.5-14.5)
[2024-01-08 15:58] LABS: LIPASE 85 U/L (12-53)
[2024-01-08 16:00] LABS: ALBUMIN 3.3 G/DL (3.2-5.2); ALKALINE PHOSPHATASE 60 U/L (46-116); ALT/SGPT 13 U/L (7.0-40); AST/SGOT 17 U/L (<34); BILIRUBIN,DIRECT 0.1 MG/DL (<0.4); BILIRUBIN,TOTAL 0.4 MG/DL (0.3-1.2); BLOOD UREA NITROGEN 28 MG/DL (9-23); CALCIUM LEVEL 8.4 MG/DL (8.3-10.6); CARBON DIOXIDE LEVEL 25 MMOL/L (20-31); CHLORIDE LEVEL 110 MMOL/L (98-107); CK-MB VALUE MASS 3.5 NG/ML (<3.6); CREATININE FOR GFR 0.97 MG/DL (0.70-1.30); GLOMERULAR FILTRATION RATE > 60.0 (>35); GLUCOSE, FASTING 199 MG/DL (74-106); POTASSIUM SERUM 4.8 MMOL/L (3.5-5.1); SODIUM LEVEL 141 MMOL/L (136-145); TOTAL PROTEIN 6.1 G/DL (5.7-8.2)
[2024-01-08 16:04] LABS: CPK CREATINE PHOSPHOKINASE 151 U/L (46-171); MB/CK RELATIVE INDEX 2.31 (< OR =4)
[2024-01-08] MEDS ORDERED: AZEL1SPR3 NARES (16:05)
[2024-01-08] MEDS ORDERED: KETO2CR TOP (16:05)
[2024-01-08] MEDS ORDERED: VENTAER INH (16:05)
[2024-01-08] MEDS ORDERED: PROP60CA PO (16:05)
[2024-01-08] MEDS ORDERED: ACE65ERTAB PO (16:05)
[2024-01-08] MEDS ORDERED: NEOM28.3 TOP (16:05)
[2024-01-08] MEDS ORDERED: [UNRECOGNIZED DRUG - CODE] PO (16:05)
[2024-01-08] MEDS ORDERED: SIMV-254 PO (16:05)
[2024-01-08] MEDS ORDERED: DULO60CA35 PO (16:05)
[2024-01-08] MEDS ORDERED: INSULADS SC (16:05)
[2024-01-08] MEDS ORDERED: JARD1TAB3 PO (16:05)
[2024-01-08] MEDS ORDERED: HOME MED LIST COMPLETE! XX SCH (16:15)
[2024-01-08 17:08] LABS: CK-MB VALUE MASS 3.5 NG/ML (<3.6)
[2024-01-08 17:17] LABS: MB/CK RELATIVE INDEX 2.51 (< OR =4)
[2024-01-08] MEDS ORDERED: ISOVUE-370 76% 100ML VIAL As Ordered ONE (17:28)
[2024-01-08 18:40] LABS: MB/CK RELATIVE INDEX 2.2 (< OR =4)
[2024-01-08] MEDS ORDERED: OMEP40CA4 PO (18:51)
[2024-01-08] MEDS ORDERED: SUCR1TA PO (18:51)
[2024-01-08] MEDS: PANTOPRAZOLE 40MG VIAL IV ONE (19:30)
[2024-01-08] MEDS: SUCRALFATE SUSP 1GM/10ML UD PO ONE (19:31)
[2024-01-08 20:33] VITALS: BP 126/59; TEMP 98; O2SAT 98
== END 2024-01-08 20:49 | disposition home or self-care (01) ==
LOC: M ED 14:58 → EDBD 14:58 → M ED 20:49
DX: R07.9 Chest pain, unspecified (principal); I45.10 Unspecified right bundle-branch block; I44.4 Left anterior fascicular block; I44.0 Atrioventricular block, first degree; I45.2 Bifascicular block; E11.9 Type 2 diabetes mellitus without complications; I10 Essential (primary) hypertension; E78.5 Hyperlipidemia, unspecified; M10.9 Gout, unspecified; G47.33 Obstructive sleep apnea (adult) (pediatric); Z87.891 Personal history of nicotine dependence; Z88.8 Allergy status to other drugs, medicaments and biological substances; Z91.048 Other nonmedicinal substance allergy status; Z79.82 Long term (current) use of aspirin; Z79.4 Long term (current) use of insulin; Z79.899 Other long term (current) drug therapy; Z79.83 Long term (current) use of bisphosphonates
CPT/HCPCS: 71045; 71275; 80048; 80076; 82550; 82553; 82803; 83605; 83690; 83880; 84484; 85025; 85610; 85730; 87486; 87581; 87633; 87798; 93005; 93041; 94760; 96374; 99285; C9113; Q9967

== ENCOUNTER → 2024-01-13 | Outpatient (CLI) | payer MEDICARE ==
[~2024-01-13] MED LIST changes: +ACE65ERTAB PO; +ARIP1TAB4 PO; +AZEL1SPR3 NARES; +DULO60CA35 PO; +INSULADS SC; +JARD1TAB3 PO; +KETO2CR TOP; +NEOM28.3 TOP; +OMEP40CA4 PO; +PROP60CA PO; +SIMV-254 PO; +SUCR1TA PO; +VENTAER INH; +[UNRECOGNIZED DRUG - CODE] PO
[2024-01-13 12:41] LABS: ALBUMIN 3.4 G/DL (3.2-5.2); ALKALINE PHOSPHATASE 63 U/L (46-116); ALT/SGPT 14 U/L (7.0-40); AST/SGOT 10 U/L (<34); BILIRUBIN,TOTAL 0.5 MG/DL (0.3-1.2); BLOOD UREA NITROGEN 23 MG/DL (9-23); CALCIUM LEVEL 8.8 MG/DL (8.3-10.6); CARBON DIOXIDE LEVEL 28 MMOL/L (20-31); CHLORIDE LEVEL 109 MMOL/L (98-107); CREATININE FOR GFR 1.06 MG/DL (0.70-1.30); GLOMERULAR FILTRATION RATE > 60.0 (>35); GLUCOSE, FASTING 170 MG/DL (74-106); POTASSIUM SERUM 4.5 MMOL/L (3.5-5.1); SODIUM LEVEL 142 MMOL/L (136-145); TOTAL PROTEIN 6.1 G/DL (5.7-8.2)
== END ==
LOC: M PLAIMG 10:02
PROVIDERS: ATTEND Family Medicine
DX: I11.0 Hypertensive heart disease with heart failure (principal); R07.9 Chest pain, unspecified; R06.09 Other forms of dyspnea

== ENCOUNTER → 2024-01-16 | Outpatient (CLI) | payer MEDICARE | LOC: M PLAIMG 09:04 | PROVIDERS: ATTEND Family Medicine | DX: I11.0 Hypertensive heart disease with heart failure (principal); I50.9 Heart failure, unspecified; I44.0 Atrioventricular block, first degree; I45.10 Unspecified right bundle-branch block; I08.3 Combined rheumatic disorders of mitral, aortic and tricuspid valves; I27.20 Pulmonary hypertension, unspecified ==

== ENCOUNTER → 2024-03-12 | Outpatient (REF) | payer MEDICARE ==
[~2024-03-12] MED LIST changes: +DOXY-323 PO; -DOXY-443 PO
[2024-03-12 11:03] LABS: HEMATOCRIT 49.1 % (42.0-52.0); HEMOGLOBIN 15.7 g/dl (13.5-17.5); MEAN CORPUSCULAR HEMOGLOBIN 30.3 pg (27.0-33.0); MEAN CORPUSCULAR VOLUME 94.8 fl (80.0-96.0); PLATELET COUNT, AUTOMATED 132 10^3/uL (150-450); RED BLOOD COUNT 5.18 10^6/uL (4.30-6.10); WHITE BLOOD COUNT 9.3 10^3/uL (4.0-10.0)
[2024-03-12 11:43] LABS: C REACTIVE PROTEIN QUANTITATIV 0.9 MG/DL (<1.0)
[2024-03-12 11:45] LABS: ALBUMIN 3.6 G/DL (3.2-5.2); BILIRUBIN,TOTAL 0.5 MG/DL (0.3-1.2); CALCIUM LEVEL 9.3 MG/DL (8.3-10.6); CHOLESTEROL RISK RATIO 3.48 (<5); CREATININE FOR GFR 1.33 MG/DL (0.70-1.30); GLOMERULAR FILTRATION RATE 54.3 (>35); HDL CHOLESTEROL 37.6 MG/DL (>40); LDL CHOLESTEROL 64.4 MG/DL (<100); NON-HDL-C 93.4 MG/DL; POTASSIUM SERUM 4.7 MMOL/L (3.5-5.1); TOTAL PROTEIN 6.5 G/DL (5.7-8.2)
[2024-03-12 11:46] LABS: FREE T4 1.01 NG/DL (0.89-1.76); THYROID STIMULATING HORMONE 2.768 uIU/ML (0.55-4.78)
[2024-03-12 11:47] LABS: TOTAL 25(OH) VITAMIN D 39.3 NG/ML (20.0-100.0)
[2024-03-12 11:52] LABS: HEMOGLOBIN A1c 9.5 % (4.0-6.0)
== END ==
PROVIDERS: ATTEND Internal Medicine Hematology
DX: I11.0 Hypertensive heart disease with heart failure (principal); I50.9 Heart failure, unspecified; Z79.899 Other long term (current) drug therapy

== ENCOUNTER → 2024-03-21 | Outpatient (REF) | payer MEDICARE ==
[2024-03-21 12:42] LABS: BASO % 0.4 % (0.0-1.0); EOS # 0.2 10^3/uL (0.0-0.5); EOS % 2.5 % (0.0-3.0); HEMATOCRIT 48.9 % (42.0-52.0); HEMOGLOBIN 15.5 g/dl (13.5-17.5); LYMPH # 1.7 10^3/uL (1.5-5.0); MEAN CORPUSCULAR HEMOGLOBIN 30.3 pg (27.0-33.0); MEAN CORPUSCULAR HGB CONC 31.7 g/dl (32.0-36.5); MEAN CORPUSCULAR VOLUME 95.7 fl (80.0-96.0); MONO # 0.7 10^3/uL (0.0-0.8); MONO % 7.7 % (2.0-8.0); NEUTROPHILS # 5.8 10^3/uL (1.5-8.5); NEUTROPHILS % 68.7 % (36.0-66.0); PLATELET COUNT, AUTOMATED 143 10^3/uL (150-450); RED BLOOD COUNT 5.11 10^6/uL (4.30-6.10); WHITE BLOOD COUNT 8.5 10^3/uL (4.0-10.0)
[2024-03-21 13:11] LABS: ALBUMIN 3.5 G/DL (3.2-5.2); ALKALINE PHOSPHATASE 67 U/L (46-116); ALT/SGPT 12 U/L (7.0-40); AST/SGOT < 8 U/L (<34); BILIRUBIN,TOTAL 0.4 MG/DL (0.3-1.2); BLOOD UREA NITROGEN 34 MG/DL (9-23); CALCIUM LEVEL 9.3 MG/DL (8.3-10.6); CARBON DIOXIDE LEVEL 29 MMOL/L (20-31); CHLORIDE LEVEL 106 MMOL/L (98-107); CREATININE FOR GFR 1.45 MG/DL (0.70-1.30); GLOMERULAR FILTRATION RATE 49.1 (>35); GLUCOSE, FASTING 200 MG/DL (74-106); SODIUM LEVEL 141 MMOL/L (136-145); TOTAL PROTEIN 6.4 G/DL (5.7-8.2)
[2024-03-21 13:13] LABS: THYROID STIMULATING HORMONE 3.121 uIU/ML (0.55-4.78)
[2024-03-21 17:01] LABS: HEMOGLOBIN A1c 9.4 % (4.0-6.0)
== END ==
PROVIDERS: ATTEND Internal Medicine Hematology
DX: E11.29 Type 2 diabetes mellitus with other diabetic kidney complication (principal)

== ENCOUNTER 2024-03-29 13:14 | Outpatient (RCR) | payer MEDICARE | END 2024-03-30 | LOC: M PT 13:14 | PROVIDERS: ATTEND Internal Medicine Hematology | DX: Z74.09 Other reduced mobility (principal) ==

== ENCOUNTER → 2024-06-13 | Outpatient (CLI) | payer MEDICARE ==
[~2024-06-13] MED LIST changes: +FLUO-365 PO; -FLUO20CA22 PO
[2024-06-13 16:16] LABS: BASO % 0.4 % (0.0-1.0); EOS # 0.2 10^3/uL (0.0-0.5); HEMATOCRIT 47.1 % (42.0-52.0); HEMOGLOBIN 14.8 g/dl (13.5-17.5); LYMPH # 1.9 10^3/uL (1.5-5.0); LYMPH % 18.7 % (24.0-44.0); MEAN CORPUSCULAR HEMOGLOBIN 30.8 pg (27.0-33.0); MEAN CORPUSCULAR HGB CONC 31.4 g/dl (32.0-36.5); MEAN CORPUSCULAR VOLUME 97.9 fl (80.0-96.0); MONO # 0.8 10^3/uL (0.0-0.8); MONO % 7.7 % (2.0-8.0); NEUTROPHILS % 70.7 % (36.0-66.0); PLATELET COUNT, AUTOMATED 142 10^3/uL (150-450); RED BLOOD COUNT 4.81 10^6/uL (4.30-6.10); WHITE BLOOD COUNT 9.9 10^3/uL (4.0-10.0)
[2024-06-13 16:36] LABS: C REACTIVE PROTEIN QUANTITATIV 1.3 MG/DL (<1.0)
[2024-06-13 16:38] LABS: ALBUMIN 3.5 G/DL (3.2-5.2); BILIRUBIN,TOTAL 0.3 MG/DL (0.3-1.2); CALCIUM LEVEL 8.6 MG/DL (8.3-10.6); CHOLESTEROL RISK RATIO 3.21 (<5); CREATININE FOR GFR 1.29 MG/DL (0.70-1.30); FREE T4 0.96 NG/DL (0.89-1.76); GLOMERULAR FILTRATION RATE 56.2 (>35); HDL CHOLESTEROL 36.4 MG/DL (>40); NON-HDL-C 80.6 MG/DL; POTASSIUM SERUM 4.5 MMOL/L (3.5-5.1); THYROID STIMULATING HORMONE 3.134 uIU/ML (0.55-4.78); TOTAL 25(OH) VITAMIN D 41.9 NG/ML (20.0-100.0); TOTAL PROTEIN 6.4 G/DL (5.7-8.2)
[2024-06-13 16:40] LABS: HEMOGLOBIN A1c 8.7 % (4.0-6.0)
[2024-06-13 19:17] LABS: MALB URINE SIEMENS < 3.0 MG/L
[2024-06-13 19:19] LABS: CREATININE, URINE 38.1 MG/DL; MAU/CREAT RATIO 7.8 MCG/MG (0.0-30.0)
== END ==
LOC: M PLALAB 14:07
PROVIDERS: ATTEND Internal Medicine Hematology
DX: E11.29 Type 2 diabetes mellitus with other diabetic kidney complication (principal); Z79.899 Other long term (current) drug therapy

== ENCOUNTER 2024-07-02 14:02 | Observation (INO) | payer MEDICARE ==
[~2024-07-02] VITALS: Ht 172.7 cm; Wt 94.6 kg
[2024-07-02 14:59] LABS: VENOUS BASE EXCESS -1.4 (-2.0-2.0); VENOUS HCO3 25.5 MMOL/L (23.0-27.0); VENOUS O2 SATURATION 64.1 % (60.0-80.0); VENOUS PARTIAL PRESSURE CO2 51.5 mmHg (38.0-50.0); VENOUS PARTIAL PRESSURE O2 34.4 mmHg (30.0-50.0); VENOUS PH 7.313 UNITS (7.330-7.430); VENOUS STANDARD HCO3 22.5 MMOL/L; VENOUS TOTAL CO2 27.1 MMOL/L (24.0-28.0)
[2024-07-02 15:01] LABS: BASO % 0.4 % (0.0-1.0); EOS # 0.2 10^3/uL (0.0-0.5); EOS % 1.9 % (0.0-3.0); HEMATOCRIT 46.4 % (42.0-52.0); HEMOGLOBIN 14.5 g/dl (13.5-17.5); LYMPH # 1.7 10^3/uL (1.5-5.0); LYMPH % 19.6 % (24.0-44.0); MEAN CORPUSCULAR HEMOGLOBIN 30.5 pg (27.0-33.0); MEAN CORPUSCULAR HGB CONC 31.3 g/dl (32.0-36.5); MEAN CORPUSCULAR VOLUME 97.5 fl (80.0-96.0); MONO # 0.7 10^3/uL (0.0-0.8); MONO % 7.7 % (2.0-8.0); NEUTROPHILS % 69.9 % (36.0-66.0); PLATELET COUNT, AUTOMATED 158 10^3/uL (150-450); RED BLOOD COUNT 4.76 10^6/uL (4.30-6.10); WHITE BLOOD COUNT 8.6 10^3/uL (4.0-10.0)
[2024-07-02 15:34] LABS: ALBUMIN 3.6 G/DL (3.2-5.2); ALKALINE PHOSPHATASE 66 U/L (46-116); ALT/SGPT 10 U/L (7.0-40); AST/SGOT < 8 U/L (<34); BILIRUBIN,DIRECT 0.1 MG/DL (<0.4); BILIRUBIN,TOTAL 0.4 MG/DL (0.3-1.2); BLOOD UREA NITROGEN 33 MG/DL (9-23); CALCIUM LEVEL 9.1 MG/DL (8.3-10.6); CARBON DIOXIDE LEVEL 28 MMOL/L (20-31); CHLORIDE LEVEL 109 MMOL/L (98-107); CREATININE FOR GFR 1.39 MG/DL (0.70-1.30); GLOMERULAR FILTRATION RATE 51.6 (>35); GLUCOSE, FASTING 208 MG/DL (74-106); POTASSIUM SERUM 4.7 MMOL/L (3.5-5.1); SODIUM LEVEL 142 MMOL/L (136-145); TOTAL PROTEIN 6.6 G/DL (5.7-8.2)
[2024-07-02 15:36] LABS: THYROID STIMULATING HORMONE 3.094 uIU/ML (0.55-4.78)
[2024-07-02 16:29] VITALS: O2SAT 78
[2024-07-02] MEDS ORDERED: ISOVUE-370 76% 100ML VIAL As Ordered ONE (16:32)
[2024-07-02] MEDS: IPRATROPIUM 0.5MG/ALBUTEROL 2.5MG INH SOL UD 3ML (DUONEB) NEB ONE (17:40)
[2024-07-02] MEDS ORDERED: METO5TAB2 PO (17:51)
[2024-07-02] MEDS ORDERED: SUCR1TAB56 PO (17:51)
[2024-07-02] MEDS ORDERED: SIMV80TA13 PO (17:51)
[2024-07-02] MEDS ORDERED: FLUT1INH2 INH (17:51)
[2024-07-02] MEDS ORDERED: INSULANT SC (17:51)
[2024-07-02] MEDS ORDERED: HOME MED LIST COMPLETE! XX SCH (17:55)
[2024-07-02] MEDS ORDERED: DEXTROSE 50% 50ML SYRINGE IV PRN (19:00)
[2024-07-02] MEDS ORDERED: GLUCAGON INJ 1MG VIAL SC PRN (19:00)
[2024-07-02] MEDS ORDERED: GLUCOSE 4 GM CHEW PO PRN (19:00)
[2024-07-02] MEDS: ADVAIR HFA 230/21MCG INHALER INH SCH (19:56)
[2024-07-02] MEDS ORDERED: IPRATROPIUM 0.5MG/ALBUTEROL 2.5MG INH SOL UD 3ML (DUONEB) NEB PRN (20:05)
[2024-07-02 20:37] VITALS: BP 121/81; TEMP 97.5; O2SAT 94
[2024-07-02] MEDS: INSULIN LISPRO (NovoLOG) PER UNIT SC SCH (21:00)
[2024-07-02] MEDS: AZELASTINE 137MCG NASAL SPY 30 ML (ASTELIN) SCH (21:00)
[2024-07-02] MEDS: allopurinoL 300 MG TAB PO SCH (21:19)
[2024-07-02] MEDS: traZODone 50 MG TAB PO SCH (21:20)
[2024-07-02] MEDS: ACETAMINOPHEN 650MG ER TAB (TYLENOL ARTHRITIS) PO SCH (21:20)
[2024-07-02] MEDS: SUCRALFATE 1 GM TAB PO SCH (21:20)
[2024-07-02] MEDS: OMEPRAZOLE 20MG CAP PO SCH (21:20)
[2024-07-02] MEDS: METOCLOPRAMIDE 5 MG TAB PO SCH (21:20)
[2024-07-02] MEDS: SIMVASTATIN 40 MG TAB PO SCH (21:20)
[2024-07-02] MEDS: FUROSEMIDE 100MG/10ML VIAL IV ONE (21:21)
[2024-07-02] MEDS: LEVEMIR (INSULIN DETEMIR) 1 UNITS/0.01ML SC SCH (21:21)
[2024-07-03 04:00] VITALS: BP 128/76; TEMP 97.5; O2SAT 93
[2024-07-03 06:04] LABS: BASO % 0.3 % (0.0-1.0); EOS # 0.2 10^3/uL (0.0-0.5); EOS % 2.2 % (0.0-3.0); HEMATOCRIT 48.6 % (42.0-52.0); HEMOGLOBIN 15.5 g/dl (13.5-17.5); LYMPH # 1.8 10^3/uL (1.5-5.0); LYMPH % 18.8 % (24.0-44.0); MEAN CORPUSCULAR HEMOGLOBIN 30.9 pg (27.0-33.0); MEAN CORPUSCULAR HGB CONC 31.9 g/dl (32.0-36.5); MEAN CORPUSCULAR VOLUME 96.8 fl (80.0-96.0); MONO # 0.9 10^3/uL (0.0-0.8); MONO % 9.1 % (2.0-8.0); NEUTROPHILS # 6.7 10^3/uL (1.5-8.5); NEUTROPHILS % 69.1 % (36.0-66.0); PLATELET COUNT, AUTOMATED 159 10^3/uL (150-450); RED BLOOD COUNT 5.02 10^6/uL (4.30-6.10); WHITE BLOOD COUNT 9.6 10^3/uL (4.0-10.0)
[2024-07-03 06:33] LABS: CALCIUM LEVEL 9.5 MG/DL (8.3-10.6); CREATININE FOR GFR 1.31 MG/DL (0.70-1.30); GLOMERULAR FILTRATION RATE 55.2 (>35); POTASSIUM SERUM 4.1 MMOL/L (3.5-5.1)
[2024-07-03] MEDS: INSULIN LISPRO (NovoLOG) PER UNIT SC SCH (07:30)
[2024-07-03] MEDS: TIOTROPIUM INHALER/CAPSULE (SPIRIVA) INH SCH (07:59)
[2024-07-03] MEDS: ASPIRIN 325 MG TAB PO SCH (08:35)
[2024-07-03] MEDS: SPIRONOLACTONE 25 MG TAB PO SCH (08:35)
[2024-07-03] MEDS: TAMSULOSIN 0.4 MG CAP PO SCH (08:35)
[2024-07-03] MEDS: TORSEMIDE 20 MG TAB PO SCH (08:35)
[2024-07-03] MEDS: FINASTERIDE 5MG TAB PO SCH (08:36)
[2024-07-03] MEDS: CYANOCOBALAMIN 500 MCG TAB PO SCH (08:37)
[2024-07-03] MEDS: ENOXAPARIN 40MG/0.4ML SYRINGE (J1650 PER 10MG) SC SCH (08:37)
[2024-07-03] MEDS ORDERED: TORSEMIDE 10 MG TABLET PO SCH (09:00)
[2024-07-03] MEDS: ARIPiprazole 2 MG TAB PO SCH (09:11)
[2024-07-03 09:12] VITALS: BP 118/69
[2024-07-03] MEDS: PROPRANOLOL 60MG LA CAP PO SCH (09:12)
[2024-07-03] MEDS ORDERED: TORS20TA2 PO (10:28)
== END 2024-07-03 12:02 ==
LOC: M ED 14:02 → EDSEX 14:02 → EDBD 14:02 → M ED INP 18:24 → INTOOBSV 18:24 → M MSPAV 20:37
PROVIDERS: ADMIT Internal Medicine Nephrology; ATTEND Internal Medicine
DX: R06.09 Other forms of dyspnea (principal); R09.02 Hypoxemia; G47.33 Obstructive sleep apnea (adult) (pediatric); E11.9 Type 2 diabetes mellitus without complications; I25.10 Atherosclerotic heart disease of native coronary artery without angina pectoris; Z95.1 Presence of aortocoronary bypass graft; N18.30 Chronic kidney disease, stage 3 unspecified; N40.0 Benign prostatic hyperplasia without lower urinary tract symptoms; E53.9 Vitamin B deficiency, unspecified; E55.9 Vitamin D deficiency, unspecified; I27.0 Primary pulmonary hypertension; Z79.82 Long term (current) use of aspirin; Z79.899 Other long term (current) drug therapy; Z79.4 Long term (current) use of insulin; Z88.8 Allergy status to other drugs, medicaments and biological substances
CPT/HCPCS: 36415; 71045; 71275; 80048; 80076; 82803; 83605; 83880; 84443; 85025; 87040; 87486; 87581; 87633; 87798; 93005; 93041; 94640; 94760; 96372; 96374; 97116; 97161; 99285; G0378; J1650; J1815; J1940; Q9967

== ENCOUNTER 2024-07-15 07:29 | Inpatient (IN) | payer MEDICARE ==
[~2024-07-15] VITALS: Ht 167.6 cm; Wt 97.7 kg
[~2024-07-15 07:29] MED LIST changes: +FLUT1INH2 INH; +INSULANT SC; +METO5TAB2 PO; +SUCR1TAB56 PO
[2024-07-15 08:09] LABS: VENOUS BASE EXCESS -2.1 (-2.0-2.0); VENOUS HCO3 24.4 MMOL/L (23.0-27.0); VENOUS O2 SATURATION 70.4 % (60.0-80.0); VENOUS PARTIAL PRESSURE CO2 48.1 mmHg (38.0-50.0); VENOUS PARTIAL PRESSURE O2 38.1 mmHg (30.0-50.0); VENOUS PH 7.323 UNITS (7.330-7.430); VENOUS TOTAL CO2 25.9 MMOL/L (24.0-28.0)
[2024-07-15 08:11] LABS: BASO % 0.4 % (0.0-1.0); EOS # 0.2 10^3/uL (0.0-0.5); EOS % 1.7 % (0.0-3.0); HEMATOCRIT 48.2 % (42.0-52.0); HEMOGLOBIN 15.3 g/dl (13.5-17.5); LYMPH # 1.6 10^3/uL (1.5-5.0); LYMPH % 15.4 % (24.0-44.0); MEAN CORPUSCULAR HEMOGLOBIN 30.8 pg (27.0-33.0); MEAN CORPUSCULAR HGB CONC 31.7 g/dl (32.0-36.5); MONO % 9.1 % (2.0-8.0); NEUTROPHILS # 7.8 10^3/uL (1.5-8.5); NEUTROPHILS % 72.8 % (36.0-66.0); PLATELET COUNT, AUTOMATED 155 10^3/uL (150-450); RED BLOOD COUNT 4.97 10^6/uL (4.30-6.10); WHITE BLOOD COUNT 10.7 10^3/uL (4.0-10.0)
[2024-07-15] MEDS: IPRATROPIUM 0.5MG/ALBUTEROL 2.5MG INH SOL UD 3ML (DUONEB) NEB PRN ×2 (08:12→20:08)
[2024-07-15] MEDS: methylPREDNISolone 125MG 2ML VIAL IV ONE (08:17)
[2024-07-15 08:43] LABS: ALBUMIN 3.9 G/DL (3.2-5.2); BILIRUBIN,DIRECT 0.1 MG/DL (<0.4); BILIRUBIN,TOTAL 0.4 MG/DL (0.3-1.2); CALCIUM LEVEL 9.5 MG/DL (8.3-10.6); CREATININE FOR GFR 1.28 MG/DL (0.70-1.30); GLOMERULAR FILTRATION RATE 56.7 (>35); POTASSIUM SERUM 4.4 MMOL/L (3.5-5.1); TOTAL PROTEIN 7.1 G/DL (5.7-8.2)
[2024-07-15] MEDS ORDERED: TRAZ-186 PO (09:12)
[2024-07-15] MEDS ORDERED: ALBU2.5V10 INH (09:12)
[2024-07-15] MEDS ORDERED: SIMVPOW2 PO (09:12)
[2024-07-15] MEDS ORDERED: TREL1AER IN (09:12)
[2024-07-15] MEDS ORDERED: HOME MED LIST COMPLETE! XX SCH (09:15)
[2024-07-15] MEDS: LORazepam 2 MG/ML 1ML VIAL IV STA (10:01)
[2024-07-15] MEDS ORDERED: ISOVUE-370 76% 100ML VIAL As Ordered ONE (10:03)
[2024-07-15] MEDS: cefTRIAXone SOD 1 GM in D5W MINI-BAG PLUS 50 ML IV ONE (11:53)
[2024-07-15] MEDS ORDERED: MOM 30ML SUSPENSION UDC PO PRN (12:20)
[2024-07-15] MEDS ORDERED: ACETAMINOPHEN TAB 650MG DOSE (2X325MG) PO PRN (12:20)
[2024-07-15] MEDS ORDERED: MAALOX 30 ML SUSP *UDC PO PRN (12:20)
[2024-07-15 13:04] LABS: PROCALCITONIN 0.16 ng/ml
[2024-07-15] MEDS ORDERED: DEXTROSE 50% 50ML SYRINGE IV PRN (13:55)
[2024-07-15] MEDS ORDERED: GLUCAGON INJ 1MG VIAL SC PRN (13:55)
[2024-07-15] MEDS ORDERED: NITROGLYCERIN 0.4MG SUBL TABLET SL PRN (13:55)
[2024-07-15] MEDS ORDERED: GLUCOSE 4 GM CHEW PO PRN (13:55)
[2024-07-15] MEDS: DOXYCYCLINE HYCLATE 100MG TABLET PO SCH (14:29)
[2024-07-15 14:40] VITALS: BP 119/60; TEMP 97.6; O2SAT 95
[2024-07-15] MEDS: ASPIRIN 325 MG TAB PO SCH (15:42)
[2024-07-15] MEDS: INSULIN LISPRO (NovoLOG) PER UNIT SC SCH ×2 (17:02→21:57)
[2024-07-15] MEDS: FORMOTEROL FUMARATE 20 MCG/2 ML INHALATION SOLUTION (PERFOROMIST) INH SCH (20:00)
[2024-07-15] MEDS: BUDESONIDE 0.5 MG/2 ML INHALATION SUSPENSION NEB SCH (20:08)
[2024-07-15] MEDS: SYMBICORT 160/4.5MCG INHALER 6GM INH SCH (20:09)
[2024-07-15 20:11] VITALS: BP 155/95; TEMP 97.2; O2SAT 96
[2024-07-15] MEDS: KETOCONAZOLE 2% CREAM TOP SCH (21:00)
[2024-07-15] MEDS ORDERED: LEVEMIR (INSULIN DETEMIR) 1 UNITS/0.01ML SC SCH (21:00)
[2024-07-15] MEDS: AZELASTINE 137MCG NASAL SPY 30 ML (ASTELIN) SCH (21:00)
[2024-07-15] MEDS: CEFEPIME HCL 2 GM in D5W MINI-BAG PLUS 50 ML IV SCH (21:56)
[2024-07-15] MEDS: traZODone 50 MG TAB PO SCH (21:56)
[2024-07-15] MEDS: OMEPRAZOLE 20MG CAP PO SCH (21:56)
[2024-07-15] MEDS: allopurinoL 300 MG TAB PO SCH (21:56)
[2024-07-15] MEDS: HEPARIN SOD (PORCINE) 5000UNITS/ML 1ML VIAL/SYRINGE SC SCH (21:57)
[2024-07-15] MEDS: SUCRALFATE 1 GM TAB PO SCH (21:57)
[2024-07-16 03:47] VITALS: BP 153/92; TEMP 96.8; O2SAT 96
[2024-07-16 09:15] VITALS: BP 136/61
[2024-07-16] MEDS: CYANOCOBALAMIN 500 MCG TAB PO SCH (09:15)
[2024-07-16] MEDS: PROPRANOLOL 60MG LA CAP PO SCH (09:15)
[2024-07-16] MEDS: SPIRONOLACTONE 25 MG TAB PO SCH (09:15)
[2024-07-16] MEDS: FINASTERIDE 5MG TAB PO SCH (09:16)
[2024-07-16] MEDS: ARIPiprazole 2 MG TAB PO SCH (09:16)
[2024-07-16] MEDS: TAMSULOSIN 0.4 MG CAP PO SCH (09:16)
[2024-07-16] MEDS: methylPREDNISolone 40MG 1ML VIAL IV SCH (09:16)
[2024-07-16] MEDS: LEVEMIR (INSULIN DETEMIR) 1 UNITS/0.01ML SC SCH (09:17)
[2024-07-16] MEDS: TORSEMIDE 10 MG TABLET PO SCH (09:17)
[2024-07-16 09:48] LABS: BASO % 0.1 % (0.0-1.0); HEMATOCRIT 47.9 % (42.0-52.0); HEMOGLOBIN 15.1 g/dl (13.5-17.5); LYMPH # 1.3 10^3/uL (1.5-5.0); MEAN CORPUSCULAR HEMOGLOBIN 30.5 pg (27.0-33.0); MEAN CORPUSCULAR HGB CONC 31.5 g/dl (32.0-36.5); MEAN CORPUSCULAR VOLUME 96.8 fl (80.0-96.0); MONO % 6.1 % (2.0-8.0); NEUTROPHILS # 13.3 10^3/uL (1.5-8.5); NEUTROPHILS % 85.2 % (36.0-66.0); PLATELET COUNT, AUTOMATED 160 10^3/uL (150-450); RED BLOOD COUNT 4.95 10^6/uL (4.30-6.10); WHITE BLOOD COUNT 15.7 10^3/uL (4.0-10.0)
[2024-07-16 10:21] LABS: ALBUMIN 3.6 G/DL (3.2-5.2); ALKALINE PHOSPHATASE 68 U/L (46-116); ALT/SGPT 14 U/L (7.0-40); AST/SGOT 8 U/L (<34); BILIRUBIN,TOTAL 0.5 MG/DL (0.3-1.2); BLOOD UREA NITROGEN 41 MG/DL (9-23); CALCIUM LEVEL 9.1 MG/DL (8.3-10.6); CARBON DIOXIDE LEVEL 23 MMOL/L (20-31); CHLORIDE LEVEL 107 MMOL/L (98-107); GLOMERULAR FILTRATION RATE > 60.0 (>35); GLUCOSE, FASTING 265 MG/DL (74-106); POTASSIUM SERUM 5.2 MMOL/L (3.5-5.1); SODIUM LEVEL 139 MMOL/L (136-145); TOTAL PROTEIN 6.8 G/DL (5.7-8.2)
[2024-07-16 12:00] VITALS: BP 125/83; TEMP 97.2; O2SAT 92
[2024-07-16] MEDS: NYSTATIN 100,000 UNITS/GM TOPICAL PWD 15GM TOP SCH (15:21)
[2024-07-16 17:39] LABS: CALCIUM LEVEL 9.2 MG/DL (8.3-10.6); CREATININE FOR GFR 1.26 MG/DL (0.70-1.30); GLOMERULAR FILTRATION RATE 57.8 (>35); POTASSIUM SERUM 5.1 MMOL/L (3.5-5.1)
[2024-07-16 20:18] VITALS: BP 130/60; TEMP 97.7; O2SAT 93
[2024-07-17 04:10] VITALS: BP 122/64; TEMP 97.2; O2SAT 92
[2024-07-17 06:19] LABS: BASO % 0.1 % (0.0-1.0); EOS % 0.1 % (0.0-3.0); HEMOGLOBIN 14.3 g/dl (13.5-17.5); LYMPH # 1.6 10^3/uL (1.5-5.0); LYMPH % 10.8 % (24.0-44.0); MEAN CORPUSCULAR HEMOGLOBIN 30.3 pg (27.0-33.0); MEAN CORPUSCULAR HGB CONC 31.8 g/dl (32.0-36.5); MEAN CORPUSCULAR VOLUME 95.3 fl (80.0-96.0); MONO % 6.5 % (2.0-8.0); NEUTROPHILS # 12.2 10^3/uL (1.5-8.5); NEUTROPHILS % 81.8 % (36.0-66.0); PLATELET COUNT, AUTOMATED 142 10^3/uL (150-450); RED BLOOD COUNT 4.72 10^6/uL (4.30-6.10); WHITE BLOOD COUNT 14.9 10^3/uL (4.0-10.0)
[2024-07-17 06:42] LABS: BLOOD UREA NITROGEN 47 MG/DL (9-23); CALCIUM LEVEL 8.9 MG/DL (8.3-10.6); CARBON DIOXIDE LEVEL 25 MMOL/L (20-31); CHLORIDE LEVEL 109 MMOL/L (98-107); CREATININE FOR GFR 1.16 MG/DL (0.70-1.30); GLOMERULAR FILTRATION RATE > 60.0 (>35); GLUCOSE, FASTING 238 MG/DL (74-106); POTASSIUM SERUM 4.5 MMOL/L (3.5-5.1); SODIUM LEVEL 139 MMOL/L (136-145)
[2024-07-17] MEDS ORDERED: TRELEGY INH SCH (09:00)
[2024-07-17] MEDS ORDERED: ALBU2.5V10 INH (10:24)
[2024-07-19 19:58] LABS: URINE STREP PNEUMONIAE ANTIGEN NOT DETECTED (NOT DETECT)
== END 2024-07-17 11:55 | DRG 197 ==
LOC: M ED 07:29 → EDBD 07:29 → M ED INP 12:20 → M MSPAV 14:39
PROVIDERS: ADMIT Student in an Organized Health Care Education/Training Program; ATTEND Student in an Organized Health Care Education/Training Program
DX: J84.9 Interstitial pulmonary disease, unspecified (principal); I50.32 Chronic diastolic (congestive) heart failure; I13.0 Hypertensive heart and chronic kidney disease with heart failure and stage 1 through stage 4 chronic kidney disease, or unspecified chronic kidney disease; J44.1 Chronic obstructive pulmonary disease with (acute) exacerbation; F03.90 Unspecified dementia, unspecified severity, without behavioral disturbance, psychotic disturbance, mood disturbance, and anxiety; F39 Unspecified mood [affective] disorder; E11.22 Type 2 diabetes mellitus with diabetic chronic kidney disease; E78.5 Hyperlipidemia, unspecified; M10.9 Gout, unspecified; G47.33 Obstructive sleep apnea (adult) (pediatric); I25.10 Atherosclerotic heart disease of native coronary artery without angina pectoris; I49.5 Sick sinus syndrome; I27.20 Pulmonary hypertension, unspecified; N40.0 Benign prostatic hyperplasia without lower urinary tract symptoms; Z66 Do not resuscitate; Z79.82 Long term (current) use of aspirin; Z79.4 Long term (current) use of insulin; Z79.899 Other long term (current) drug therapy; Z91.048 Other nonmedicinal substance allergy status; Z88.8 Allergy status to other drugs, medicaments and biological substances; Z95.0 Presence of cardiac pacemaker; Z95.5 Presence of coronary angioplasty implant and graft; N18.30 Chronic kidney disease, stage 3 unspecified

== ENCOUNTER → 2024-08-10 | Outpatient (REF) | payer MEDICARE ==
[~2024-08-10] MED LIST changes: +ALBU2.5V10 INH; -DOXY-323 PO; +DOXY-441 PO; +SIMVPOW2 PO; +TRAZ-186 PO; +TREL1AER IN
[2024-08-10 08:48] LABS: BASO % 0.4 % (0.0-1.0); EOS # 0.1 10^3/uL (0.0-0.5); EOS % 1.8 % (0.0-3.0); HEMATOCRIT 48.5 % (42.0-52.0); HEMOGLOBIN 15.2 g/dl (13.5-17.5); LYMPH # 1.6 10^3/uL (1.5-5.0); LYMPH % 19.4 % (24.0-44.0); MEAN CORPUSCULAR HEMOGLOBIN 30.7 pg (27.0-33.0); MEAN CORPUSCULAR HGB CONC 31.3 g/dl (32.0-36.5); MONO # 0.9 10^3/uL (0.0-0.8); MONO % 10.7 % (2.0-8.0); NEUTROPHILS # 5.3 10^3/uL (1.5-8.5); NEUTROPHILS % 66.7 % (36.0-66.0); PLATELET COUNT, AUTOMATED 159 10^3/uL (150-450); RED BLOOD COUNT 4.95 10^6/uL (4.30-6.10)
[2024-08-10 09:22] LABS: ALBUMIN 3.7 G/DL (3.2-5.2); ALKALINE PHOSPHATASE 65 U/L (46-116); ALT/SGPT 12 U/L (7.0-40); AST/SGOT < 8 U/L (<34); BILIRUBIN,TOTAL 0.4 MG/DL (0.3-1.2); BLOOD UREA NITROGEN 32 MG/DL (9-23); CALCIUM LEVEL 9.5 MG/DL (8.3-10.6); CARBON DIOXIDE LEVEL 29 MMOL/L (20-31); CHLORIDE LEVEL 108 MMOL/L (98-107); CHOLESTEROL LEVEL 132 MG/DL (<200); CREATININE FOR GFR 1.37 MG/DL (0.70-1.30); GLOMERULAR FILTRATION RATE 52.4 (>35); GLUCOSE, FASTING 92 MG/DL (74-106); LDL CHOLESTEROL 72.2 MG/DL (<100); POTASSIUM SERUM 4.3 MMOL/L (3.5-5.1); SODIUM LEVEL 143 MMOL/L (136-145); TOTAL PROTEIN 6.8 G/DL (5.7-8.2); TRIGLYCERIDES LEVEL 99 MG/DL (<150)
[2024-08-10 09:24] LABS: FREE T4 1.12 NG/DL (0.89-1.76); THYROID STIMULATING HORMONE 3.175 uIU/ML (0.55-4.78); TOTAL 25(OH) VITAMIN D 34.8 NG/ML (20.0-100.0); VITAMIN B12 LEVEL 1258 PG/ML (211-911)
[2024-08-10 09:26] LABS: HEMOGLOBIN A1c 9.3 % (4.0-6.0)
== END ==
PROVIDERS: ATTEND Internal Medicine Hematology
DX: E11.29 Type 2 diabetes mellitus with other diabetic kidney complication (principal); Z79.899 Other long term (current) drug therapy

== ENCOUNTER → 2024-08-14 | Outpatient (REF) | payer MEDICARE ==
[2024-08-14 17:28] LABS: APPEARANCE, URINE CLEAR (CLEAR); BACTERIA, URINE AUTO NEGATIVE (NEGATIVE); BILIRUBIN, URINE AUTO NEGATIVE (NEGATIVE); BLOOD, URINE BLOOD NEGATIVE (NEGATIVE); COLOR, URINE STRAW (YELLOW); GLUCOSE, URINE (UA) AUTO 3+ mg/dL (NEGATIVE); KETONE, URINE AUTO NEGATIVE (NEGATIVE); LEUKOCYTE ESTERASE, URINE AUTO 1+ (NEGATIVE); NITRITE, URINE AUTO NEGATIVE (NEGATIVE); PROTEIN, URINE AUTO NEGATIVE (NEGATIVE); RBC, URINE AUTO 0 /HPF (0-3); SPECIFIC GRAVITY URINE AUTO 1.011 (1.002-1.035); SQUAMOUS EPITHELIAL CELL UR AU 1 /HPF (0-6); UROBILINOGEN, URINE AUTO 0.2 mg/dL (0.0-2.0); WBC, URINE AUTO 8 /HPF (0-3)
== END ==
LOC: M SFHCPLAZ 16:59
PROVIDERS: ATTEND Student in an Organized Health Care Education/Training Program
DX: R31.0 Gross hematuria (principal)

== ENCOUNTER → 2024-09-01 | Outpatient (CLI) | payer MEDICARE | LOC: M SLEEP 20:00 | PROVIDERS: ATTEND Internal Medicine Pulmonary Disease | DX: G47.33 Obstructive sleep apnea (adult) (pediatric) (principal) ==

== ENCOUNTER → 2025-01-10 | Outpatient (CLI) | payer MEDICARE ==
[~2025-01-10] MED LIST changes: +ABIL1TAB13 PO; +ASPI1TAB22 PO; +B-12100021 PO; +METO25TA PO; +OMEP-173 PO; +SIMV40TA20 PO; +TREL1AER INH; +TYLE650T38 PO; +VITA100066 PO
== END ==
LOC: M PLAIMG 16:33
PROVIDERS: ATTEND Student in an Organized Health Care Education/Training Program
DX: R10.30 Lower abdominal pain, unspecified (principal)

== ENCOUNTER → 2025-05-24 | Outpatient (CLI) | payer MEDICARE ==
[~2025-05-24] MED LIST changes: -ACE65ERTAB PO; +ACET-1515 PO; +ACET-1593 PO; -ACET650T15 PO; +AMIT10TA11 PO; -AMIT10TA7 PO; +CHOL25CA2 PO; +CLOP75TA2 PO; +ERYT5OIN25 OU; +EZET10TA21 PO; -FLOM0.4C39 PO; +KETO120S5 TOP; -KETO2SHA8 TOP; +TAMS-18 PO; -VITA100054 PO
== END ==
LOC: M RAD 15:16
PROVIDERS: ATTEND Student in an Organized Health Care Education/Training Program
DX: T17.208A Unspecified foreign body in pharynx causing other injury, initial encounter (principal); Y93.9 Activity, unspecified; Y92.9 Unspecified place or not applicable

== ENCOUNTER 2025-06-09 10:45 | Inpatient (IN) | payer MEDICARE ==
[2025-06-08] MEDS: AZELASTINE 137 MCG NASAL SPY 30 ML SCH (23:50)
[~2025-06-09] VITALS: Ht 172.7 cm; Wt 87.2 kg
[~2025-06-09 10:45] MED LIST changes: +ALBU2.5V10 NEB
[2025-06-09 11:35] LABS: VENOUS BASE EXCESS 0.3 (-2.0-2.0); VENOUS HCO3 24.6 MMOL/L (23.0-27.0); VENOUS O2 SATURATION 88.5 % (60.0-80.0); VENOUS PARTIAL PRESSURE CO2 38.6 mmHg (38.0-50.0); VENOUS PARTIAL PRESSURE O2 55.9 mmHg (30.0-50.0); VENOUS PH 7.422 UNITS (7.330-7.430); VENOUS STANDARD HCO3 24.6 MMOL/L; VENOUS TOTAL CO2 25.8 MMOL/L (24.0-28.0)
[2025-06-09] MEDS: IPRATROPIUM 0.5 MG/ALBUTEROL 2.5 MG INH SOL UD 3 ML NEB PRN (11:36)
[2025-06-09 11:42] LABS: BASO # 0.0 10^3/uL (0.0-0.2); BASO % 0.4 % (0.0-1.0); EOS # 0.2 10^3/uL (0.0-0.5); EOS % 2.3 % (0.0-3.0); LYMPH # 1.5 10^3/uL (1.5-5.0); LYMPH % 15.2 % (24.0-44.0); MONO # 0.9 10^3/uL (0.0-0.8); MONO % 8.8 % (2.0-8.0); NEUTROPHILS # 7.3 10^3/uL (1.5-8.5); NEUTROPHILS % 72.9 % (36.0-66.0); PLATELET COUNT, AUTOMATED 138 10^3/uL (150-450)
[2025-06-09 12:06] LABS: ALT/SGPT 27.0 U/L (7.0-40); AST/SGOT 31.0 U/L (<34); CALCIUM LEVEL 8.9 MG/DL (8.3-10.6); CARBON DIOXIDE LEVEL 27.0 MMOL/L (20-31); CHLORIDE LEVEL 106.0 MMOL/L (98-107); CREATININE FOR GFR 1.29 MG/DL (0.70-1.30); GLOMERULAR FILTRATION RATE 53.7 (>35); POTASSIUM SERUM 5.0 MMOL/L (3.5-5.1); SODIUM LEVEL 142.0 MMOL/L (136-145)
[2025-06-09] MEDS ORDERED: ISOVUE-370 76% 100 ML VIAL As Ordered ONE (13:06)
[2025-06-09] MEDS ORDERED: EZET10TA21 PO (16:04)
[2025-06-09] MEDS ORDERED: ACET650T61 PO (16:04)
[2025-06-09] MEDS ORDERED: CLOP75TA2 PO (16:04)
[2025-06-09] MEDS ORDERED: SENN-122 PO (16:04)
[2025-06-09] MEDS ORDERED: ALPR0.5T3 PO (16:04)
[2025-06-09] MEDS ORDERED: FAMO40TA3 PO (16:04)
[2025-06-09] MEDS ORDERED: NITR4TASL SL (16:04)
[2025-06-09] MEDS ORDERED: HOME MED LIST COMPLETE! XX SCH (16:05)
[2025-06-09] MEDS: FUROSEMIDE 40 MG/4 ML VIAL IV ONE (17:26)
[2025-06-09] MEDS ORDERED: GLUCOSE 4 GM CHEW PO PRN (17:35)
[2025-06-09] MEDS ORDERED: GLUCAGON INJ 1 MG VIAL SC PRN (17:35)
[2025-06-09] MEDS ORDERED: DEXTROSE 50% 50 ML SYRINGE IV PRN (17:35)
[2025-06-09] MEDS: SUCRALFATE 1 GM TAB PO SCH (19:00)
[2025-06-09] MEDS: ALBUTEROL SULFATE 2.5 MG/0.5 ML INH CONCENTRATE NEB SOLN NEB SCH (20:15)
[2025-06-09] MEDS: GLYCOPYRROLATE INJ 0.2 MG/ML 2 ML VIAL NEB SCH (20:15)
[2025-06-09] MEDS: BUDESONIDE 0.5 MG/2 ML INHALATION SUSPENSION NEB SCH (20:15)
[2025-06-09 20:53] VITALS: BP 124/73; TEMP 97; O2SAT 91
[2025-06-09] MEDS: traZODone 50 MG TAB PO SCH (23:36)
[2025-06-09] MEDS: SIMVASTATIN 40 MG TAB PO SCH (23:36)
[2025-06-09] MEDS: CLOPIDOGREL 75 MG TAB PO SCH (23:36)
[2025-06-09] MEDS: FAMOTIDINE 20 MG TAB PO SCH (23:36)
[2025-06-09] MEDS: DOXYCYCLINE HYCLATE 100 MG TABLET PO SCH (23:36)
[2025-06-09] MEDS: dexAMETHasone 4 MG/ML 1 ML VIAL IV SCH (23:37)
[2025-06-09] MEDS: LanTUS (INSULIN GLARGINE INJ) 1 UNITS/0.01 ML SC SCH (23:52)
[2025-06-09] MEDS: INSULIN LISPRO (NovoLOG) PER UNIT SC SCH (23:52)
[2025-06-10 03:56] VITALS: BP 146/78; TEMP 96.8; O2SAT 91
[2025-06-10 07:30] LABS: BASO # 0.0 10^3/uL (0.0-0.2); BASO % 0.1 % (0.0-1.0); EOS # 0.0 10^3/uL (0.0-0.5); EOS % 0.0 % (0.0-3.0); LYMPH # 0.9 10^3/uL (1.5-5.0); LYMPH % 8.4 % (24.0-44.0); MONO # 0.3 10^3/uL (0.0-0.8); MONO % 3.3 % (2.0-8.0); NEUTROPHILS # 8.8 10^3/uL (1.5-8.5); NEUTROPHILS % 87.6 % (36.0-66.0); PLATELET COUNT, AUTOMATED 149 10^3/uL (150-450)
[2025-06-10 08:03] LABS: CALCIUM LEVEL 9.4 MG/DL (8.3-10.6); CARBON DIOXIDE LEVEL 26.0 MMOL/L (20-31); CHLORIDE LEVEL 105.0 MMOL/L (98-107); CREATININE FOR GFR 1.18 MG/DL (0.70-1.30); GLOMERULAR FILTRATION RATE 59.7 (>35); POTASSIUM SERUM 4.5 MMOL/L (3.5-5.1); SODIUM LEVEL 144.0 MMOL/L (136-145)
[2025-06-10] MEDS: INSULIN LISPRO (NovoLOG) PER UNIT SC SCH (08:07)
[2025-06-10] MEDS: METOCLOPRAMIDE 5 MG TAB PO SCH (08:08)
[2025-06-10] MEDS: ASPIRIN 81 MG ENTERIC TABLET PO SCH (08:08)
[2025-06-10] MEDS: EZETIMIBE 10 MG TABLET PO SCH (08:08)
[2025-06-10] MEDS: SPIRONOLACTONE 25 MG TAB PO SCH (08:09)
[2025-06-10] MEDS: TAMSULOSIN 0.4 MG CAP PO SCH (08:09)
[2025-06-10] MEDS: FINASTERIDE 5 MG TAB PO SCH (08:09)
[2025-06-10] MEDS: PROPRANOLOL 60MG LA CAP PO SCH (08:09)
[2025-06-10 12:08] VITALS: BP 115/65; TEMP 97.2; O2SAT 91
[2025-06-10 19:42] VITALS: BP 120/67; TEMP 97.4; O2SAT 93
[2025-06-10] MEDS: ENOXAPARIN 40 MG/0.4 ML SYRINGE (J1650 PER 10MG) SC SCH (20:30)
[2025-06-11 05:47] VITALS: BP 149/89; TEMP 97; O2SAT 92
[2025-06-11 06:28] LABS: BASO # 0.0 10^3/uL (0.0-0.2); BASO % 0.1 % (0.0-1.0); EOS # 0.0 10^3/uL (0.0-0.5); EOS % 0.0 % (0.0-3.0); LYMPH # 1.0 10^3/uL (1.5-5.0); LYMPH % 6.2 % (24.0-44.0); MONO # 0.7 10^3/uL (0.0-0.8); MONO % 4.1 % (2.0-8.0); NEUTROPHILS # 14.4 10^3/uL (1.5-8.5); NEUTROPHILS % 88.9 % (36.0-66.0); PLATELET COUNT, AUTOMATED 164 10^3/uL (150-450)
[2025-06-11 06:53] LABS: CALCIUM LEVEL 9.4 MG/DL (8.3-10.6); CARBON DIOXIDE LEVEL 20.0 MMOL/L (20-31); CHLORIDE LEVEL 109.0 MMOL/L (98-107); CREATININE FOR GFR 1.18 MG/DL (0.70-1.30); GLOMERULAR FILTRATION RATE 59.7 (>35); POTASSIUM SERUM 4.8 MMOL/L (3.5-5.1); SODIUM LEVEL 143.0 MMOL/L (136-145)
[2025-06-11 08:28] VITALS: BP 132/76; TEMP 97
[2025-06-11 08:32] VITALS: BP 132/76
[2025-06-11] MEDS: MIRALAX *UNIT DOSE* 17 GM PACKET PO PRN (10:54)
[2025-06-11] MEDS ORDERED: PRED20TA PO (11:36)
[2025-06-11] MEDS ORDERED: DOXY100T PO (11:36)
[2025-06-11 12:15] VITALS: BP 132/75; TEMP 97.2; O2SAT 93
== END 2025-06-11 14:06 | DRG 191 ==
LOC: M ED 10:45 → M ED INP 14:45 → M MSPAV 20:53
PROVIDERS: ADMIT Internal Medicine Nephrology; ATTEND Internal Medicine Nephrology
DX: J44.1 Chronic obstructive pulmonary disease with (acute) exacerbation (principal); I50.42 Chronic combined systolic (congestive) and diastolic (congestive) heart failure; I13.0 Hypertensive heart and chronic kidney disease with heart failure and stage 1 through stage 4 chronic kidney disease, or unspecified chronic kidney disease; F03.90 Unspecified dementia, unspecified severity, without behavioral disturbance, psychotic disturbance, mood disturbance, and anxiety; I25.10 Atherosclerotic heart disease of native coronary artery without angina pectoris; E11.22 Type 2 diabetes mellitus with diabetic chronic kidney disease; G47.33 Obstructive sleep apnea (adult) (pediatric); K31.84 Gastroparesis; E11.43 Type 2 diabetes mellitus with diabetic autonomic (poly)neuropathy; K21.9 Gastro-esophageal reflux disease without esophagitis; I35.0 Nonrheumatic aortic (valve) stenosis; Z66 Do not resuscitate; R09.02 Hypoxemia; E78.5 Hyperlipidemia, unspecified; I25.2 Old myocardial infarction; I49.5 Sick sinus syndrome; N18.30 Chronic kidney disease, stage 3 unspecified; N40.0 Benign prostatic hyperplasia without lower urinary tract symptoms; M10.9 Gout, unspecified; Z98.49 Cataract extraction status, unspecified eye; Z90.49 Acquired absence of other specified parts of digestive tract; Z87.891 Personal history of nicotine dependence; Z95.5 Presence of coronary angioplasty implant and graft; Z95.0 Presence of cardiac pacemaker; Z96.651 Presence of right artificial knee joint; Z79.82 Long term (current) use of aspirin; Z79.4 Long term (current) use of insulin; Z79.899 Other long term (current) drug therapy; Z91.048 Other nonmedicinal substance allergy status; Z88.8 Allergy status to other drugs, medicaments and biological substances

== ENCOUNTER 2025-06-19 15:30 | Emergency (ER) | payer MEDICARE ==
[~2025-06-19 15:30] MED LIST changes: +ACET650T61 PO; +ALPR0.5T3 PO; +FAMO40TA3 PO; +SENN-122 PO
[2025-06-19 16:16] LABS: VENOUS BASE EXCESS 0.2 (-2.0-2.0); VENOUS HCO3 27.8 MMOL/L (23.0-27.0); VENOUS O2 SATURATION 69.0 % (60.0-80.0); VENOUS PARTIAL PRESSURE CO2 56.7 mmHg (38.0-50.0); VENOUS PARTIAL PRESSURE O2 39.7 mmHg (30.0-50.0); VENOUS PH 7.309 UNITS (7.330-7.430); VENOUS STANDARD HCO3 23.9 MMOL/L; VENOUS TOTAL CO2 29.6 MMOL/L (24.0-28.0)
[2025-06-19 16:23] LABS: BASO # 0.0 10^3/uL (0.0-0.2); BASO % 0.2 % (0.0-1.0); EOS # 0.2 10^3/uL (0.0-0.5); EOS % 1.6 % (0.0-3.0); LYMPH # 1.6 10^3/uL (1.5-5.0); LYMPH % 13.9 % (24.0-44.0); MONO # 0.9 10^3/uL (0.0-0.8); MONO % 7.9 % (2.0-8.0); NEUTROPHILS # 8.7 10^3/uL (1.5-8.5); NEUTROPHILS % 75.1 % (36.0-66.0); PLATELET COUNT, AUTOMATED 141 10^3/uL (150-450)
[2025-06-19 16:47] LABS: ALT/SGPT 33.0 U/L (7.0-40); AST/SGOT 33.0 U/L (<34); CALCIUM LEVEL 8.9 MG/DL (8.3-10.6); CARBON DIOXIDE LEVEL 28.0 MMOL/L (20-31); CHLORIDE LEVEL 103.0 MMOL/L (98-107); CREATININE FOR GFR 1.39 MG/DL (0.70-1.30); GLOMERULAR FILTRATION RATE 49.1 (>35); POTASSIUM SERUM 4.8 MMOL/L (3.5-5.1); SODIUM LEVEL 142.0 MMOL/L (136-145)
[2025-06-19 16:51] LABS: THYROXINE (T4) 5.7 UG/DL (4.5-10.9)
[2025-06-19] MEDS: IPRATROPIUM 0.5 MG/ALBUTEROL 2.5 MG INH SOL UD 3 ML NEB ONE (17:42)
[2025-06-19 18:46] VITALS: TEMP 97.6
[2025-06-19] MEDS ORDERED: NYST-38 SS (19:19)
[2025-06-19 20:00] VITALS: BP 134/61
[2025-06-19 20:01] VITALS: O2SAT 93
== END 2025-06-19 20:27 | disposition home or self-care (01) ==
LOC: M ED 15:30 → EDBD 15:30 → M ED 20:27
DX: R06.00 Dyspnea, unspecified (principal); B37.0 Candidal stomatitis; I11.0 Hypertensive heart disease with heart failure; I25.10 Atherosclerotic heart disease of native coronary artery without angina pectoris; J44.9 Chronic obstructive pulmonary disease, unspecified; E78.5 Hyperlipidemia, unspecified; N18.2 Chronic kidney disease, stage 2 (mild); F32.9 Major depressive disorder, single episode, unspecified; Z95.5 Presence of coronary angioplasty implant and graft; Z90.49 Acquired absence of other specified parts of digestive tract; Z79.4 Long term (current) use of insulin; Z79.899 Other long term (current) drug therapy; Z91.89 Other specified personal risk factors, not elsewhere classified; Z88.8 Allergy status to other drugs, medicaments and biological substances
CPT/HCPCS: 71045; 80048; 80076; 82803; 83605; 83880; 84436; 84443; 85025; 87040; 87486; 87581; 87633; 87798; 87880; 93005; 93041; 94640; 94760; 99285; G0463

== ENCOUNTER 2025-06-28 02:27 | Emergency (ER) | payer MEDICARE ==
[~2025-06-28] VITALS: Ht 172.7 cm; Wt 88.6 kg
[~2025-06-28 02:27] MED LIST changes: +NYST-38 SS
[2025-06-28 07:09] LABS: VENOUS BASE EXCESS 0.3 (-2.0-2.0); VENOUS HCO3 27.4 MMOL/L (23.0-27.0); VENOUS O2 SATURATION 72.7 % (60.0-80.0); VENOUS PARTIAL PRESSURE CO2 53.6 mmHg (38.0-50.0); VENOUS PARTIAL PRESSURE O2 41.5 mmHg (30.0-50.0); VENOUS PH 7.327 UNITS (7.330-7.430); VENOUS STANDARD HCO3 24.1 MMOL/L; VENOUS TOTAL CO2 29.1 MMOL/L (24.0-28.0)
[2025-06-28 07:14] VITALS: TEMP 96.9
[2025-06-28 07:14] LABS: BASO # 0.0 10^3/uL (0.0-0.2); BASO % 0.3 % (0.0-1.0); EOS # 0.2 10^3/uL (0.0-0.5); EOS % 1.5 % (0.0-3.0); LYMPH # 1.4 10^3/uL (1.5-5.0); LYMPH % 12.2 % (24.0-44.0); MONO # 0.7 10^3/uL (0.0-0.8); MONO % 6.5 % (2.0-8.0); NEUTROPHILS # 9.0 10^3/uL (1.5-8.5); NEUTROPHILS % 79.0 % (36.0-66.0); PLATELET COUNT, AUTOMATED 133 10^3/uL (150-450)
[2025-06-28 07:37] LABS: INR 0.92
[2025-06-28 07:46] LABS: ALT/SGPT 33.0 U/L (7.0-40); AST/SGOT 25.0 U/L (<34); CALCIUM LEVEL 9.2 MG/DL (8.3-10.6); CARBON DIOXIDE LEVEL 27.0 MMOL/L (20-31); CHLORIDE LEVEL 107.0 MMOL/L (98-107); CREATININE FOR GFR 1.29 MG/DL (0.70-1.30); GLOMERULAR FILTRATION RATE 53.7 (>35); MAGNESIUM LEVEL 2.4 MG/DL (1.8-2.4); POTASSIUM SERUM 4.7 MMOL/L (3.5-5.1); SODIUM LEVEL 146.0 MMOL/L (136-145)
[2025-06-28 07:47] LABS: CK-MB VALUE MASS 4.3 NG/ML (<3.6)
[2025-06-28 07:49] LABS: FREE T4 1.07 NG/DL (0.89-1.76)
[2025-06-28 07:50] LABS: CPK CREATINE PHOSPHOKINASE 57.0 U/L (46-171); MB/CK RELATIVE INDEX 7.54 (< OR =4)
[2025-06-28 08:39] LABS: CK-MB VALUE MASS 4.0 NG/ML (<3.6)
[2025-06-28 08:50] LABS: CPK CREATINE PHOSPHOKINASE 55.0 U/L (46-171); MB/CK RELATIVE INDEX 7.27 (< OR =4)
[2025-06-28 09:00] VITALS: BP 126/56; O2SAT 94
== END 2025-06-28 09:07 | disposition home or self-care (01) ==
LOC: M ED 02:27
DX: J44.1 Chronic obstructive pulmonary disease with (acute) exacerbation (principal); I12.9 Hypertensive chronic kidney disease with stage 1 through stage 4 chronic kidney disease, or unspecified chronic kidney disease; E78.5 Hyperlipidemia, unspecified; Z98.84 Bariatric surgery status; Z79.4 Long term (current) use of insulin; Z79.899 Other long term (current) drug therapy; Z79.82 Long term (current) use of aspirin; Z88.8 Allergy status to other drugs, medicaments and biological substances; Z91.89 Other specified personal risk factors, not elsewhere classified

== ENCOUNTER → 2025-07-19 | Outpatient (CLI) | payer MEDICARE ==
[~2025-07-19] MED LIST changes: -EZET10TA21 PO; +EZET10TA57 PO
[2025-07-19 14:01] LABS: PLATELET COUNT, AUTOMATED 179 10^3/uL (150-450)
[2025-07-19 14:19] LABS: ESTIMATED AVERAGE GLUCOSE 180.0 MG/DL (60-110)
[2025-07-19 14:20] LABS: ALT/SGPT 24.0 U/L (7.0-40); AST/SGOT 20.0 U/L (<34); CALCIUM LEVEL 9.7 MG/DL (8.3-10.6); CARBON DIOXIDE LEVEL 28.0 MMOL/L (20-31); CHLORIDE LEVEL 102.0 MMOL/L (98-107); CHOLESTEROL LEVEL 97.0 MG/DL (<200); CHOLESTEROL RISK RATIO 2.67 (<5); CREATININE FOR GFR 1.46 MG/DL (0.70-1.30); GLOMERULAR FILTRATION RATE 46.3 (>35); LDL CHOLESTEROL 28.3 MG/DL (<100); NON-HDL-C 60.7 MG/DL; POTASSIUM SERUM 4.9 MMOL/L (3.5-5.1); PSA SCREENING 15.18 NG/ML (< 4.00); SODIUM LEVEL 138.0 MMOL/L (136-145); TRIGLYCERIDES LEVEL 162.0 MG/DL (<150)
== END ==
LOC: M PLALAB 10:44
PROVIDERS: ATTEND Family Medicine
DX: I11.0 Hypertensive heart disease with heart failure (principal); E11.29 Type 2 diabetes mellitus with other diabetic kidney complication; R97.20 Elevated prostate specific antigen [PSA]; M10.9 Gout, unspecified; Z12.5 Encounter for screening for malignant neoplasm of prostate
CPT/HCPCS: 36415; 80053; 80061; 83036; 83880; 84550; 85027; G0103

== ENCOUNTER → 2025-07-19 | Outpatient (REF) | payer MEDICARE | LOC: M SFHCPLAZ 10:07 | PROVIDERS: ATTEND Family Medicine | DX: Z53.9 Procedure and treatment not carried out, unspecified reason (principal) ==

== ENCOUNTER → 2025-09-06 | Outpatient (REF) | payer MEDICARE ==
[~2025-09-06] MED LIST changes: +ACET-1387 PO; -ACET-1593 PO; -CHOL25CA2 PO; +D3 H10003 PO
[2025-09-06 12:09] LABS: BASO # 0.0 10^3/uL (0.0-0.2); BASO % 0.4 % (0.0-1.0); EOS # 0.2 10^3/uL (0.0-0.5); EOS % 2.5 % (0.0-3.0); LYMPH # 1.3 10^3/uL (1.5-5.0); LYMPH % 12.9 % (24.0-44.0); MONO # 0.8 10^3/uL (0.0-0.8); MONO % 7.9 % (2.0-8.0); NEUTROPHILS # 7.4 10^3/uL (1.5-8.5); NEUTROPHILS % 75.8 % (36.0-66.0); PLATELET COUNT, AUTOMATED 192 10^3/uL (150-450)
[2025-09-06 12:43] LABS: ALT/SGPT 28.0 U/L (7.0-40); AST/SGOT 22.0 U/L (<34); CALCIUM LEVEL 9.0 MG/DL (8.3-10.6); CARBON DIOXIDE LEVEL 27.0 MMOL/L (20-31); CHLORIDE LEVEL 106.0 MMOL/L (98-107); CHOLESTEROL LEVEL 85.0 MG/DL (<200); CHOLESTEROL RISK RATIO 2.53 (<5); CREATININE FOR GFR 1.44 MG/DL (0.70-1.30); GLOMERULAR FILTRATION RATE 47.0 (>35); LDL CHOLESTEROL 22.5 MG/DL (<100); MAGNESIUM LEVEL 2.2 MG/DL (1.8-2.4); NON-HDL-C 51.5 MG/DL; POTASSIUM SERUM 4.7 MMOL/L (3.5-5.1); SODIUM LEVEL 143.0 MMOL/L (136-145); TRIGLYCERIDES LEVEL 145.0 MG/DL (<150)
== END ==
PROVIDERS: ATTEND Nurse Practitioner Family
DX: I50.32 Chronic diastolic (congestive) heart failure (principal)